=== PATIENT | male | born 1990 | race Hispanic/Latino ===

== ENCOUNTER 2018-06-25 07:42 | Emergency (ER) | payer OTHER ==
--- NOTE | 2018-06-25 08:03 | EKG ---
Test Date: 2018-06-25 Test Time: 07:49:10 Rn Patient Services: [place] MEASUREMENT RESULTS: Intervals: Rate: 96 RI: 186 QRSD: 108 QT: 378 QTc: 477 [place]: P: 49 RI: 186 QRS: 73 T: 18 INTERPRETIVE STATEMENTS: Normal sinus rhythm Septal infarct, age undetermined Abnormal ECG No previous ECG available for comparison Electronically Signed On 06-25-18 08:03:01 LEVERMAN by Andrew Wood
--- NOTE | 2018-06-25 08:08 | RAD REPORT ---
EXAM DESCRIPTION: CT - Head Brain Wo Cont - 06/25/2018 8:00 am CLINICAL HISTORY: Transient alteration of awareness COMPARISON: None. TECHNIQUE: Axial 5 mm thick images of the head were obtained without IV contrast. All CT scans are performed using dose optimization technique as appropriate and may include automated exposure control or mA/KV adjustment according to patient size. FINDINGS: No intracranial hemorrhage, mass, edema or shift of mid-line structures. No acute infarcti on changes seen. No abnormal extra-axial fluid collections. Ventricles are normal. Mastoid air cells and visualized portions of the paranasal sinuses are clear. No acute bony findings. IMPRESSION: Negative non-contrast CT head examination.
[2018-06-25 08:10] LABS: Absolute Lymphocytes (CBC) 2.5 K/uL (0.7-4.9); Absolute Monocytes 0.7 K/uL (0.1-1.3); Basophils % 0.5 % (0-1.3); Eosinophils % 1.5 % (0-4.4); Hematocrit 50.3 % (39.6-49.0); Lymphocytes % 39.6 % (15.3-44.8); MCH 33.2 pg (27.0-35.0); MCV 99.3 fL (80-100); MPV 7.8 fL (7.6-11.3); Monocytes % 11.2 % (3.3-12.3); RBC Red Blood Cell Count 5.06 M/uL (4.33-5.43)
[2018-06-25 08:14] LABS: Protime INR 0.96
[2018-06-25 09:08] LABS: ALT/SGPT 62 U/L (12-78); AST/SGOT 38 U/L (15-37); Albumin 4.2 g/dL (3.4-5.0); Alkaline Phosphatase 63 U/L (45-117); BUN Blood Urea Nitrogen 11 mg/dL (7-18); Bicarbonate 21 mmol/L (21-32); Bilirubin Direct 0.1 mg/dL (0-0.2); Bilirubin Total 0.2 mg/dL (0.2-1.0); Glucose Level 184 mg/dL (74-106); Protein, Total 7.6 g/dL (6.4-8.2); Sodium Level 145 mmol/L (136-145)
--- NOTE | 2018-06-25 14:15 | ER ---
Nurse's Notes [facility] Name: Dudley Castellano Age: 28 yrs Sex: Male : 1990 Arrival Date: 06/25/2018 Time: 07:46 Bed 4 Private MD: Diagnosis: Dehydration;Alcohol abuse with intoxication Presentation: 06/25 07:50 Presenting complaint: EMS states: At gas station, went inside to get coffee, then came ss out to vehicle and fell asleep. Pt denies any drug or ETOH ingestion. Pt is A\T\O x1, arouses to loud verbal stimuli. Transition of care: patient was not received from another setting of care. Onset of symptoms was June 25, 2018. Risk Assessment: Do you want to hurt yourself or someone else? Patient reports no desire to harm self or others. Initial Sepsis Screen: Does the patient meet any 2 criteria? No. Patient's initial sepsis screen is negative. Does the patient have a suspected source of infection? No. Patient's initial sepsis screen is negative. Care prior to arrival: IV initiated. 18 GA, in the right antecubital area, Oxygen administered. via nasal cannula. 07:50 Method Of Arrival: EMS: [facility] ss 07:50 Acuity: DELMER 2 ss Historical: - Allergies: 07:52 Unable to obtain; ss - Home Meds: 07:52 Unable to obtain [Active]; ss - PMHx: 07:52 Unable to obtain; ss - PSHx: 07:52 Unable to obtain; ss - Immunization history:: Adult Immunizations unknown. - Social history:: Smoking status: unknown. - Ebola Screening: : Unable to complete screening because. - Family history:: not pertinent. - Hospitalizations: : No recent hospitalization is reported. Screenin:00 Abuse screen: Denies threats or abuse. Denies injuries from another. Nutritional hb screening: No deficits noted. Tuberculosis screening: No symptoms or risk factors identified. Fall Risk Total Bianchi Fall Scale indicates High Risk Score (45 or more points). Fall prevention measures have been instituted. Side Rails Up X 2 Frequent Obs/Assessments Occuring As available patient and family educated on Fall Prevention Program and Strategies. Assessment: 07:50 General: Appears in no apparent distress. Behavior is calm, Smells of alcohol. Pain: hb Denies pain. Neuro: Level of Consciousness is confused, lethargic, Oriented to person. Cardiovascular: Heart tones S1 S2 present Capillary refill < 3 seconds Patient's skin is warm and dry. Respiratory: Airway is patent Trachea midline Respiratory effort is even, unlabored, Respiratory pattern is regular, symmetrical, Breath sounds are clear bilaterally. GI: No signs and/or symptoms were reported involving the gastrointestinal system. : No signs and/or symptoms were reported regarding the genitourinary system. EENT: No signs and/or symptoms were reported regarding the EENT system. Derm: No signs and/or symptoms reported regarding the dermatologic system. Skin is intact, is healthy with good turgor, Skin is pink, warm \T\ dry. Musculoskeletal: No signs and/or symptoms reported regarding the musculoskeletal system. 08:30 Reassessment: Patient appears in no apparent distress at this time. No changes from hb previously documented assessment. Patient and/or family updated on plan of care and expected duration. Pain level reassessed. 09:29 Reassessment: Patient appears in no apparent distress at this time. No changes from hb previously documented assessment. Patient and/or family updated on plan of care and expected duration. Pain level reassessed. 10:31 Reassessment: Patient appears in no apparent distress at this time. No changes from hb previously documented assessment. VSS. 11:14 Reassessment: Patient appears in no apparent distress at this time. pt father at bedside requesting to know where the pt was picked up from so he could locate the pts vehicle and belongings, pt father updated on POC. 12:58 Reassessment: Patient appears in no apparent distress at this time. Patient and/or hb family updated on plan of care and expected duration. Pain level reassessed. Vital Signs: 07:50 BP 121 / 68; Pulse 90; Resp 14; Temp 97.7; Pulse Ox 97% on R/A; Weight 102.06 kg; Height 5 ft. 10 in. (177.80 cm); Pain 0/10; 08:30 BP 115 / 66; Pulse 89; Resp 15; Pulse Ox 100% on R/A; hb 09:29 BP 115 / 66; Pulse 86; Resp 15; Pulse Ox 100% on R/A; hb 11:00 BP 124 / 68; Pulse 84; Resp 15; Pulse Ox 100% on R/A; hb 07:50 Body Mass Index 32.28 (102.06 kg, 177.80 cm) ED Course: 07:46 Patient arrived in ED. rn 07:46 Jose Calhoun MD is Attending Physician. rn 07:49 EKG done, by qa tech. reviewed by Jose Calhoun MD. at1 07:50 Maintain EMS IV. Dressing intact. Good blood return noted. Site clean \T\ dry. Gauge \T\ ss site: 18 GAUGE IN R AC. 07:50 Arm band placed on. sg 07:52 Triage completed. ss 07:56 Rickie Gee, RN is Primary Nurse. sg 07:[address] via stretcher. jj2 08:00 CT Head Brain wo Cont In Process Unspecified. EDMS 08:00 Patient has correct armband on for positive identification. Placed in gown. Bed in low hb position. Call light in reach. Side rails up X2. 08:03 Patient moved back from CT. sg 08:04 Mabel Phillips, RN is Primary Nurse. sg 08:04 CT completed. Patient tolerated procedure well. Patient moved back from CT. jj2 14:30 No provider procedures requiring assistance completed. IV discontinued, intact, hb bleeding controlled, No redness/swelling at site. Pressure dressing applied. Administered Medications: 07:55 Drug: NS 0.9% 1000 ml Route: IV; Rate: 1000 ml; Site: right forearm; Point of Care Testing: Blood Glucose: 07:50 Blood Glucose: 170 mg/dL; Ranges: Outcome: 14:15 Discharge ordered by . rn 14:30 Patient left the ED. ss 14:30 Discharged to home ambulatory. hb 14:30 Condition: stable 14:30 Discharge instructions given to patient, Instructed on discharge instructions, follow up and referral plans. medication usage, Demonstrated understanding of instructions, follow-up care, medications. Signatures: Dispatcher [employer] EDMS Rickie Gee, KINDRA ARGUELLES Mario Shane j Jose Calhoun MD MD rn Smirch, Shelby, RN RN Wanda Snyder, stem roller operator EKG Tat1 Mabel Phillips RN RN hb Corrections: (The following items were deleted from the chart) 12:58 12:00 Reassessment: Patient appears in no apparent distress at this time. Patient hb and/or family updated on plan of care and expected duration. Pain level reassessed. VSS. hb
--- NOTE | 2018-06-25 14:15 | EDPHYS ---
Physician Documentation [facility] Name: Dudley Castellano Age: 28 yrs Sex: Male : 1990 Arrival Date: 06/25/2018 Time: 07:46 Bed 4 Private MD: ED Physician Jose Calhoun HPI: 06/25 07:53 This 28 yrs old Male presents to ER via EMS with complaints of Altered Mental rn Status. 07:53 The patient presents with confusion, decreased responsiveness. Onset: The rn symptoms/episode began/occurred at an unknown time. Possible causes: unknown. Current symptoms: In the emergency department the patient's symptoms are unchanged from the initial presentation. It is unknown whether or not the patient has had similar symptoms in the past. Per EMS, at gas station, decreased responsiveness, doesn't admit to taking drugs or ETOH, patient states feels "ok", and his name is "dr. Roche". Denies pain, denies medical problems. NO meds given by EMS. Unknown onset or precipitant. . Historical: - Allergies: 07:52 Unable to obtain; ss - Home Meds: 07:52 Unable to obtain [Active]; ss - PMHx: 07:52 Unable to obtain; ss - PSHx: 07:52 Unable to obtain; ss - Immunization history:: Adult Immunizations unknown. - Social history:: Smoking status: unknown. - Ebola Screening: : Unable to complete screening because. - Family history:: not pertinent. - Hospitalizations: : No recent hospitalization is reported. ROS: 07:53 Constitutional: Negative for fever, chills, and weight loss, Eyes: Negative for injury, rn pain, redness, and discharge, Neck: Negative for injury, pain, and swelling, Cardiovascular: Negative for chest pain, palpitations, and edema, Respiratory: Negative for shortness of breath, cough, wheezing, and pleuritic chest pain, Abdomen/GI: Negative for abdominal pain, nausea, vomiting, diarrhea, and constipation, MS/Extremity: Negative for injury and deformity, Skin: Negative for injury, rash, and discoloration, Neuro: Negative for headache, weakness, numbness, tingling, and seizure. Exam: 07:53 Constitutional: This is a well developed, well nourished patient who is awake, but rn appears confused, follows commands, giggling and attempting to grab nurses Head/Face: Normocephalic, atraumatic. Eyes: Pupils equal round and reactive to light, extra-ocular motions intact. No nystagmus. ENT: dry MM with cracked lips, no stridor Cardiovascular: Regular rate and rhythm with a normal S1 and S2. No gallops, murmurs, or rubs. Normal PMI, no JVD. No pulse deficits. Respiratory: Lungs have equal breath sounds bilaterally, clear to auscultation. No increased work of breathing, no retractions or nasal flaring. Abdomen/GI: soft, non-tender Skin: Warm, dry MS/ Extremity: Pulses equal, no cyanosis. Neurovascular intact. Full, normal range of motion. Equal circumference. Neuro: Awake, confused, oriented to place and person, not time, moves all 4 extremities but slow. Right side of face with droop, localizes pain. Vital Signs: 07:50 BP 121 / 68; Pulse 90; Resp 14; Temp 97.7; Pulse Ox 97% on R/A; Weight 102.06 kg; sg Height 5 ft. 10 in. (177.80 cm); Pain 0/10; 08:30 BP 115 / 66; Pulse 89; Resp 15; Pulse Ox 100% on R/A; hb 09:29 BP 115 / 66; Pulse 86; Resp 15; Pulse Ox 100% on R/A; hb 11:00 BP 124 / 68; Pulse 84; Resp 15; Pulse Ox 100% on R/A; hb 07:50 Body Mass Index 32.28 (102.06 kg, 177.80 cm) sg MDM: 07:46 Patient medically screened. rn 14:03 Differential Diagnosis: electrolyte abnormality, alcohol intoxication, overdose, volume rn depletion. Data reviewed: vital signs, nurses notes, lab test result(s), EKG, radiologic studies, and as a result, I will. Counseling: I had a detailed discussion with the patient and/or guardian regarding: the historical points, exam findings, and any diagnostic results supporting the discharge/admit diagnosis, lab results, radiology results. 14:14 ED course: Pt now awake, ambulating to bathroom, feels much better, normal vitals, rn passes field sobriety test, but told him can't leave without a ride, he didn't drive here, so is either calling a friend or [employer]. . 06/25 07:47 Order name: Acetaminophen rn 06/25 07:47 Order name: Basic Metabolic Panel rn 06/25 07:47 Order name: CBC with Diff rn 06/25 07:47 Order name: ETOH Level; Complete Time: 08:51 rn 06/25 07:47 Order name: Hepatic Function; Complete Time: 09:26 rn 06/25 07:47 Order name: PT-INR; Complete Time: 08:34 rn 06/25 07:47 Order name: Ptt, Activated; Complete Time: 08:34 rn 06/25 07:47 Order name: Salicylate; Complete Time: 10:34 rn 06/25 07:47 Order name: CT Head Brain wo Cont; Complete Time: 08:09 rn 06/25 07:47 Order name: Acetaminophen Level; Complete Time: 09:26 EDMS 06/25 07:47 Order name: Basic Metabolic Panel; Complete Time: 09:26 EDMS 06/25 07:47 Order name: CBC with Automated Diff; Complete Time: 08:34 EDMS 06/25 07:53 Order name: Glucose, Ancillary Testing; Complete Time: 08:09 EDMS 06/25 07:47 Order name: EKG; Complete Time: 07:47 rn 06/25 07:47 Order name: EKG - Nurse/Tech; Complete Time: 07:54 rn 06/25 07:47 Order name: IV Saline Lock; Complete Time: 07:54 rn 05 07:47 Order name: Labs collected and sent; Complete Time: 07:54 rn 06/25 07:47 Order name: Glucose Level; Complete Time: 07:57 rn Administered Medications: 07:55 Drug: NS 0.9% 1000 ml Route: IV; Rate: 1000 ml; Site: right forearm; Point of Care Testing: Blood Glucose: 07:50 Blood Glucose: 170 mg/dL; ss Ranges: Critical Glucose Levels:Adult <50 mg/dl or >400 mg/dl <40 mg/dl or >180 mg/dl Disposition: 06/25/18 14:15 Discharged to Home. Impression: Dehydration, Alcohol abuse with intoxication. - Condition is Stable. - Discharge Instructions: Alcohol Intoxication, Dehydration, Adult. - Medication Reconciliation Form, Thank You Letter, Antibiotic Education, Prescription Opioid Use form. - Follow up: Private Physician; When: As needed; Reason: Recheck today's complaints, Re-evaluation by your physician. - Problem is new. - Symptoms have improved. Signatures: Dispatcher [employer] EDRickie Nolasco RN Jose Madden MD MD rn Smirch, Shelby, RN RN ss Corrections: (The following items were deleted from the chart) 14:30 14:15 06/25/2018 14:15 Discharged to Home. Impression: Dehydration; Alcohol abuse with ss intoxication. Condition is Stable. Forms are Medication Reconciliation Form, Thank You Letter, Antibiotic Education, Prescription Opioid Use. Follow up: Private Physician; When: As needed; Reason: Recheck today's complaints, Re-evaluation by your physician. Problem is new. Symptoms have improved. rn
== END 2018-06-25 14:30 | disposition home or self-care (01) ==
LOC: ER 07:42
DX: E86.0 Dehydration (principal); F10.129 Alcohol abuse with intoxication, unspecified; R94.31 Abnormal electrocardiogram [ECG] [EKG]
CPT/HCPCS: 36415; 70450; 80048; 80076; 80320; 80329; 82962; 85025; 85610; 85730; 93005; 99284

== ENCOUNTER 2018-10-01 10:26 | Inpatient (IN) | payer OTHER ==
[2018-10-01 11:52] LABS: Absolute Lymphocytes (CBC) 0.9 K/uL (0.7-4.9); Absolute Monocytes 0.5 K/uL (0.1-1.3); Absolute Neutrophil 1.7 K/uL (1.8-8.0); Basophils % 0.7 % (0-1.3); Eosinophils % 0.6 % (0-4.4); Hematocrit 48.5 % (39.6-49.0); Lymphocytes % 28.2 % (15.3-44.8); MPV 7.9 fL (7.6-11.3); Monocytes % 16.2 % (3.3-12.3); RBC Red Blood Cell Count 5.08 M/uL (4.33-5.43)
[2018-10-01] MEDS ORDERED: FAMOTIDINE 20 MG/2 ML VIAL IV ONE (11:53)
[2018-10-01] MEDS ORDERED: NA CHLORIDE 0.9% 1,000 ML ONE ×2 (11:54→14:23)
[2018-10-01 12:15] LABS: Albumin 4.4 g/dL (3.4-5.0); Bilirubin Direct 0.2 mg/dL (0-0.2); Bilirubin Total 0.6 mg/dL (0.2-1.0); Potassium 4.2 mmol/L (3.5-5.1); Protein, Total 8.2 g/dL (6.4-8.2)
[2018-10-01 12:38] LABS: Arterial Blood Carboxyhemoglob 0.8 % (0-1.5); Blood Gas Oxyhemoglobin 95.7 % (94-97); Blood O2 Saturation 97.9 % (92-98.5)
[2018-10-01] MEDS ORDERED: NA CHLORIDE 0.9% 2,000 ML ONE (12:44)
[2018-10-01] MEDS ORDERED: PIPER/TAZO/NS 3.375gm 3.375 GM/100 ML BAG ONE (12:44)
--- NOTE | 2018-10-01 12:45 | RAD REPORT ---
EXAM DESCRIPTION: RAD - Chest Single View - 10/01/2018 12:38 pm CLINICAL HISTORY: Abdominal pain, abdominal distention COMPARISON: None. TECHNIQUE: AP portable chest image was obtained 1235 hours . FINDINGS: Lungs are clear. Heart and vasculature are normal. No measurable pleural effusion and no p neumothorax. No acute bony abnormality seen. No acute aortic findings suspected. IMPRESSION: No acute cardiopulmonary process.
[2018-10-01 12:54] LABS: Blood Morphology Comment NOT SEEN (NOT SEEN); Platelet Estimate ADEQ; Urine White Blood Cell Casts OK
[2018-10-01 13:06] LABS: Protime INR 0.93
[2018-10-01 13:21] LABS: Magnesium 2.4 mg/dL (1.8-2.4); NT PRO-BNP 114 pg/mL (<125); Troponin (Emerg Dept Use Only) < 0.02 ng/mL (0.0-0.045)
--- NOTE | 2018-10-01 14:19 | ER ---
Nurse's Notes [facility] Name: Dudley aCstellano Age: 28 yrs Sex: Male : 1990 Arrival Date: 10/01/2018 Time: 10:27 Bed 7 Private MD: Unknown, Unknown Diagnosis: Vomiting;Diarrhea, unspecified;Diabetes mellitus due to underlying condition with ketoacidosis without coma;Abdominal tenderness Presentation: 10/01 11:05 Presenting complaint: Patient states: started with constipation on Saturday. Took epsom dm5 salt which usually helps. Saturday started diarrhea, stomach cramps, fatigue. hasn't been able to keep much down in about [address] Link, [facility], sees Dr. barbra cardona for diabetes. PCP told him it might be his gallbladder or appendix. Transition of care: patient was not received from another setting of care. Onset of symptoms Onset of symptoms was September 26, 2018. Risk Assessment: Do you want to hurt yourself or someone else? Patient reports no desire to harm self or others. Initial Sepsis Screen: Does the patient meet any 2 criteria? No. Patient's initial sepsis screen is negative. Does the patient have a suspected source of infection? No. Patient's initial sepsis screen is negative. Care prior to arrival: None. 11:05 Method Of Arrival: Ambulatory dm5 11:05 Acuity: DELMER 3 dm5 Triage Assessment: 11:08 General: Appears in no apparent distress. uncomfortable, Behavior is calm, cooperative. dm5 Pain: Complains of pain in right lower quadrant Pain currently is 6 out of 10 on a pain scale. GI: Reports intolerance of food, nausea, vomiting. Historical: - Allergies: 11:08 No Known Allergies; dm5 - Home Meds: 11:08 inokana [Active]; dm5 - PMHx: 11:08 Diabetes - NIDDM; Hypertension; dm5 - Immunization history:: Adult Immunizations up to date. - Social history:: Smoking status: Patient/guardian denies using tobacco. - Family history:: not pertinent. - Ebola Screening: : No symptoms or risks identified at this time. Screenin:28 Abuse screen: Denies threats or abuse. Nutritional screening: No deficits noted. sv Tuberculosis screening: No symptoms or risk factors identified. Fall Risk None identified. Assessment: 11:15 General: Appears in no apparent distress. uncomfortable, slender, well groomed, well sv developed, Behavior is calm, cooperative, appropriate for age. Pain: Complains of pain in epigastric area and right upper quadrant and right lower quadrant Pain currently is 5 out of 10 on a pain scale. Quality of pain is described as sharp, Pain began 4 days ago Is continuous. Neuro: Level of Consciousness is awake, alert, obeys commands, Oriented to person, place, time, situation, Moves all extremities. Full function Gait is steady. Respiratory: Respiratory effort is even, unlabored, Respiratory pattern is regular, symmetrical. GI: Abdomen is flat, Abd is soft X 4 quads Abdomen is tender to palpation in epigastric area, right upper quadrant and right lower quadrant Reports constipation, diarrhea, nausea, tolerance of fluids, tolerance of food. GI: Reports cramping. Derm: Skin is pink, warm \T\ dry. Musculoskeletal: Range of motion: intact in all extremities. 11:48 Reassessment: Patient appears in no apparent distress at this time. No changes from sv previously documented assessment. Patient and/or family updated on plan of care and expected duration. Pain level reassessed. Patient is alert, oriented x 3, equal unlabored respirations, skin warm/dry/pink. 12:51 Reassessment: Patient appears in no apparent distress at this time. No changes from sv previously documented assessment. Patient and/or family updated on plan of care and expected duration. Pain level reassessed. Patient is alert, oriented x 3, equal unlabored respirations, skin warm/dry/pink. 14:21 Reassessment: Patient appears in no apparent distress at this time. No changes from sv previously documented assessment. Patient and/or family updated on plan of care and expected duration. Pain level reassessed. Patient is alert, oriented x 3, equal unlabored respirations, skin warm/dry/pink. 15:10 Reassessment: Patient appears in no apparent distress at this time. No changes from sv previously documented assessment. Patient and/or family updated on plan of care and expected duration. Pain level reassessed. Patient is alert, oriented x 3, equal unlabored respirations, skin warm/dry/pink. Pt given mouth swabs, pt was requesting ice chips but we are unable to give him any at this time. 15:33 Reassessment: Patient appears in no apparent distress at this time. No changes from sv previously documented assessment. Patient and/or family updated on plan of care and expected duration. Pain level reassessed. Patient is alert, oriented x 3, equal unlabored respirations, skin warm/dry/pink. Updated on POC. 16:21 Reassessment: Patient appears in no apparent distress at this time. No changes from sv previously documented assessment. Patient and/or family updated on plan of care and expected duration. Pain level reassessed. Patient is alert, oriented x 3, equal unlabored respirations, skin warm/dry/pink. 16:35 Reassessment: Dr Poole at bedside speaking with pt. sv 16:55 Reassessment: Patient appears in no apparent distress at this time. Patient and/or sv family updated on plan of care and expected duration. Pain level reassessed. Patient is alert, oriented x 3, equal unlabored respirations, skin warm/dry/pink. 17:26 Reassessment: Patient appears in no apparent distress at this time. Patient and/or sv family updated on plan of care and expected duration. Pain level reassessed. Patient is alert, oriented x 3, equal unlabored respirations, skin warm/dry/pink. 18:11 Reassessment: Patient appears in no apparent distress at this time. No changes from sv previously documented assessment. Patient and/or family updated on plan of care and expected duration. Pain level reassessed. Patient is alert, oriented x 3, equal unlabored respirations, skin warm/dry/pink. 18:26 Reassessment: Patient appears in no apparent distress at this time. Patient and/or sv family updated on plan of care and expected duration. Pain level reassessed. Patient is alert, oriented x 3, equal unlabored respirations, skin warm/dry/pink. Pt given lemon glycerin mouth swabs. 19:48 Reassessment: Patient appears in no apparent distress at this time. No changes from jd3 previously documented assessment. Patient and/or family updated on plan of care and expected duration. Pain level reassessed. Patient is alert, oriented x 3, equal unlabored respirations, skin warm/dry/pink. 20:20 Reassessment: Patient appears in no apparent distress at this time. Patient and/or jd3 family updated on plan of care and expected duration. Pain level reassessed. Patient is alert, oriented x 3, equal unlabored respirations, skin warm/dry/pink. charting continued in [facility]. Vital Signs: 11:08 BP 145 / 105; Pulse 99; Resp 20; Temp 97.8; Pulse Ox 100% on R/A; Weight 83.01 kg; dm5 Height 5 ft. 10 in. (177.80 cm); 13:01 BP 130 / 96; Pulse 71; Resp 18; Pulse Ox 100% ; jb1 13:10 BP 130 / 96; Pulse 69 MON; Resp 18; Pulse Ox 100% on R/A; sv 13:57 BP 140 / 99; Pulse 77; Resp 17; Pulse Ox 100% ; sv 14:55 BP 125 / 85; Pulse 77; Resp 20; Pulse Ox 100% ; sv 15:33 BP 133 / 86; Pulse 74; Resp 18; Pulse Ox 100% ; sv 16:21 BP 121 / 71; Pulse 74; Resp 19; Pulse Ox 100% ; sv 17:27 Pulse 73; Resp 19; Pulse Ox 100% ; sv 18:26 BP 126 / 85; Pulse 83 MON; Resp 20; Pulse Ox 100% on R/A; sv 19:48 BP 130 / 89; Pulse 76; Resp 19 S; Pulse Ox 100% on R/A; jd3 11:08 Body Mass Index 26.26 (83.01 kg, 177.80 cm) dm5 13:10 Sinus Rhythm sv 18:26 Sinus Rhythm sv ED Course: 10:27 Patient arrived in ED. ag5 10:29 Unknown, Unknown is Private Physician. ag5 11:07 Triage completed. dm5 11:08 Arm band placed on right wrist. dm5 11:15 Pulse ox on. NIBP on. sv 11:28 Nery Nguyen, RN is Primary Nurse. sv 11:28 Trevin Camarillo MD is Attending Physician. karlene 11:28 Patient has correct armband on for positive identification. Bed in low position. Call sv light in reach. Door closed. Head of bed elevated. 11:35 Initial lab(s) drawn, by me, sent to lab. Inserted saline lock: 18 gauge in right sv antecubital area, using aseptic technique. Blood collected. Flushed right antecubital with 5 ml normal saline. 12:19 US Abdomen Limited In Process Unspecified. EDMS 12:35 X-ray completed. Portable x-ray completed in exam room. Patient tolerated procedure jb2 well. 12:36 XRAY Chest (1 view) In Process Unspecified. EDMS 12:49 EKG done, by diagnostic radiologic technologist. reviewed by Trevin Camarillo MD. sm3 13:10 pvc monitor on. sv 14:02 Add On-Lab Sent. sv 14:10 Repeat lab(s) drawn. by me, sent to lab. sv 14:13 Gail Albarran MD is Hospitalizing Provider. karlene 14:22 Awaiting lab results, Awaiting CT Scan. sv 14:[address] via wheelchair. sv 14:29 CT completed. Patient tolerated procedure well. Patient moved back from CT. sj 14:35 CT Abd/Pelvis - W/Contrast In Process Unspecified. EDMS 15:34 Repeat lab(s) drawn. by me, sent to lab. sv 16:50 Missed attempt(s): 20 gauge in right wrist. Bleeding controlled, band aid applied, sv catheter tip intact. 16:55 Inserted saline lock: 20 gauge in left antecubital area, using aseptic technique. sv Flushed left antecubital with 5 ml normal saline. 17:27 Awaiting bed assignment. sv 18:27 Awaiting bed assignment. sv 18:29 EKG done, by ED staff. jb1 18:29 Repeat lab(s) drawn. by me, sent to lab. jb1 19:08 Report given to Radha ARGUELLES and Apollo ARGUELLES. sv 19:09 Primary Nurse role handed off by Nery Nguyen RN sv 19:47 Shahid Alas, KINDRA is Primary Nurse. jd3 20:21 No provider procedures requiring assistance completed. Patient admitted, IV remains in jd3 place. Administered Medications: Discontinued: NS 0.9% 1000 ml IV at 125 ml/hr continuous 11:48 Drug: NS 0.9% 1000 ml Route: IV; Rate: 1 bolus; Site: right antecubital; sv 12:40 Follow up: Response: No adverse reaction; IV Status: Completed infusion; IV Intake: sv 1000ml 11:48 Drug: Pepcid 20 mg Route: IVP; Site: right antecubital; sv 12:28 Follow up: Response: No adverse reaction sv 12:51 Drug: NS 0.9% 1000 ml Route: IV; Rate: 1 bolus; Site: right antecubital; sv 14:00 Follow up: Response: No adverse reaction; IV Status: Completed infusion; IV Intake: sv 1000ml 12:51 Drug: NS 0.9% 1000 ml Route: IV; Rate: 125 ml/hr; Site: right antecubital; sv 12:51 Drug: Zosyn 3.375 grams Route: IVPB; Infused Over: 60 mins; Site: right antecubital; sv 13:30 Follow up: Response: No adverse reaction; IV Status: Completed infusion; IV Intake: sv 100ml 14:20 Drug: NS 0.9% 1000 ml Route: IV; Rate: 1 bolus; Site: right antecubital; sv 15:20 Follow up: Response: No adverse reaction; IV Status: Completed infusion; IV Intake: sv 1000ml 16:59 Drug: D5-1/2 NS with KCl 20 mEq/L 1000 ml Route: IV; Rate: 125 ml/hr; Site: left sv antecubital; 20:22 Follow up: IV Status: Infusion continued upon admission jd3 17:00 Drug: Insulin Drip - (Insulin Regular Human 100 units, NS 0.9% 100 ml) {Co-Signature: sv aj1 (Shelly Askew RN).} Route: IV; Rate: 4 units/hr; Site: right antecubital; 20:23 Follow up: Response: No adverse reaction; IV Status: Infusion continued upon admission jd3 Point of Care Testing: Blood Glucose: 11:41 Blood Glucose: 247 mg/dL; sv 12:52 Blood Glucose: 226 mg/dL; sv 14:10 Blood Glucose: 207 mg/dL; sv 15:17 Blood Glucose: 183 mg/dL; jb1 16:24 Blood Glucose: 181 mg/dL; sv 17:26 Blood Glucose: 181 mg/dL; sv 18:11 Blood Glucose: 182 mg/dL; sv 19:48 Blood Glucose: 141 mg/dL; jd3 21:26 Blood Glucose: 151 mg/dL; oe 22:17 Blood Glucose: 150 mg/dL; oe 10/02 01:49 Blood Glucose: 210 mg/dL; oe 02:17 Blood Glucose: 255 mg/dL; oe Ranges: Intake: 10/01 12:40 IV: 1000ml; Total: 1000ml. sv 12:50 PO: 500ml (Contrast); Total: 1500ml. sv 13:30 IV: 100ml; Total: 1600ml. sv 14:00 IV: 1000ml; Total: 2600ml. sv 15:20 IV: 1000ml; Total: 3600ml. sv 12:50 Called and informed Rochelle in CT pt finished sv Output: 13:58 Urine: 1000ml (Voided); Total: 1000ml. sv 17:26 Urine: 1000ml (Voided); Total: 2000ml. sv 12:50 Called and informed Rochelle in CT pt finished sv Outcome: 14:18 Decision to Hospitalize by Provider. karlene 20:21 Admitted to ER Hold. Please see [facility] for further documentation. jd3 20:21 Condition: stable 20:21 Instructed on the need for admit, Demonstrated understanding of instructions. 10/02 04:10 Admitted to Med/surg accompanied by tech, via wheelchair, room 428, with chart, Report jd3 called to Lit ARGUELLES Condition: stable Instructed on the need for admit, Demonstrated understanding of instructions. 04:11 Patient left the ED. [email or web address] Signatures: Dispatcher [employer] EDMS Kirk Nicole1 Jenn García, RN RN dm5 Nery Nguyen, RN RN Trevin Suresh MD MD cha Buechter, Jesse jb2 Rochelle Donahue Orlando oe Davies, Jonathon RN RN jd3 Yary Edmonds3 Saw Villalta5 Shelly Askew RN aj1 Corrections: (The following items were deleted from the chart) 10/01 13:10 13:10 BP 130 / 96; Pulse 69bpm; Resp 18bpm; Pulse Ox 100% RA; sv sv
--- NOTE | 2018-10-01 14:19 | EDPHYS ---
Physician Documentation [facility] Name: Dudley Castellano Age: 28 yrs Sex: Male : 1990 Arrival Date: 10/01/2018 Time: 10:27 Bed 7 Private MD: Unknown, Unknown ED Physician Trevin Camarillo HPI: 10/01 11:38 This 28 yrs old Male presents to ER via Ambulatory with complaints of karlene Vomiting/Diarrhea, STOMACH PAINS, FATIGUE. 11:38 The patient presents to the emergency department with nausea, vomiting, abdominal pain, karlene of the right upper quadrant. Onset: The symptoms/episode began/occurred 2 day(s) ago. Possible causes: unknown. The symptoms are aggravated by food , The symptoms are alleviated by nothing. Associated signs and symptoms: The patient has no apparent associated signs or symptoms. Severity of symptoms: At their worst the symptoms were mild moderate in the emergency department the symptoms are unchanged. The patient has not experienced similar symptoms in the past. Historical: - Allergies: 11:08 No Known Allergies; dm5 - Home Meds: 11:08 inokana [Active]; dm5 - PMHx: 11:08 Diabetes - NIDDM; Hypertension; dm5 - Immunization history:: Adult Immunizations up to date. - Social history:: Smoking status: Patient/guardian denies using tobacco. - Family history:: not pertinent. - Ebola Screening: : No symptoms or risks identified at this time. ROS: 11:38 Constitutional: Negative for fever, chills, and weight loss, Eyes: Negative for injury, karlene pain, redness, and discharge, ENT: Negative for injury, pain, and discharge, Neck: Negative for injury, pain, and swelling, Cardiovascular: Negative for chest pain, palpitations, and edema, Respiratory: Negative for shortness of breath, cough, wheezing, and pleuritic chest pain, Back: Negative for injury and pain, : Negative for injury, bleeding, discharge, and swelling, MS/Extremity: Negative for injury and deformity, Skin: Negative for injury, rash, and discoloration, Neuro: Negative for headache, weakness, numbness, tingling, and seizure, Psych: Negative for depression, anxiety, suicide ideation, homicidal ideation, and hallucinations, Allergy/Immunology: Negative for hives, rash, and allergies, Endocrine: Negative for neck swelling, polydipsia, polyuria, polyphagia, and marked weight changes, Hematologic/Lymphatic: Negative for swollen nodes, abnormal bleeding, and unusual bruising. 11:38 Abdomen/GI: Positive for abdominal pain, of the right upper quadrant. Exam: 11:38 Constitutional: This is a well developed, well nourished patient who is awake, alert, karlene and in no acute distress. Head/Face: Normocephalic, atraumatic. Eyes: Pupils equal round and reactive to light, extra-ocular motions intact. Lids and lashes normal. Conjunctiva and sclera are non-icteric and not injected. Cornea within normal limits. Periorbital areas with no swelling, redness, or edema. ENT: Nares patent. No nasal discharge, no septal abnormalities noted. Tympanic membranes are normal and external auditory canals are clear. Oropharynx with no redness, swelling, or masses, exudates, or evidence of obstruction, uvula midline. Mucous membranes moist. Neck: Trachea midline, no thyromegaly or masses palpated, and no cervical lymphadenopathy. Supple, full range of motion without nuchal rigidity, or vertebral point tenderness. No Meningismus. Chest/axilla: Normal chest wall appearance and motion. Nontender with no deformity. No lesions are appreciated. Cardiovascular: Regular rate and rhythm with a normal S1 and S2. No gallops, murmurs, or rubs. Normal PMI, no JVD. No pulse deficits. Respiratory: Lungs have equal breath sounds bilaterally, clear to auscultation and percussion. No rales, rhonchi or wheezes noted. No increased work of breathing, no retractions or nasal flaring. Back: No spinal tenderness. No costovertebral tenderness. Full range of motion. Male : Normal genitalia with no discharge or lesions. Skin: Warm, dry with normal turgor. Normal color with no rashes, no lesions, and no evidence of cellulitis. MS/ Extremity: Pulses equal, no cyanosis. Neurovascular intact. Full, normal range of motion. Neuro: Awake and alert, GCS 15, oriented to person, place, time, and situation. Cranial nerves II-XII grossly intact. Motor strength 5/5 in all extremities. Sensory grossly intact. Cerebellar exam normal. Normal gait. Psych: Awake, alert, with orientation to person, place and time. Behavior, mood, and affect are within normal limits. 11:38 Abdomen/GI: Inspection: abdomen appears normal, Bowel sounds: normal, Palpation: mild abdominal tenderness, in the epigastric area and right upper quadrant. Vital Signs: 11:08 BP 145 / 105; Pulse 99; Resp 20; Temp 97.8; Pulse Ox 100% on R/A; Weight 83.01 kg; dm5 Height 5 ft. 10 in. (177.80 cm); 13:01 BP 130 / 96; Pulse 71; Resp 18; Pulse Ox 100% ; jb1 13:10 BP 130 / 96; Pulse 69 MON; Resp 18; Pulse Ox 100% on R/A; sv 13:57 BP 140 / 99; Pulse 77; Resp 17; Pulse Ox 100% ; sv 14:55 BP 125 / 85; Pulse 77; Resp 20; Pulse Ox 100% ; sv 15:33 BP 133 / 86; Pulse 74; Resp 18; Pulse Ox 100% ; sv 16:21 BP 121 / 71; Pulse 74; Resp 19; Pulse Ox 100% ; sv 17:27 Pulse 73; Resp 19; Pulse Ox 100% ; sv 18:26 BP 126 / 85; Pulse 83 MON; Resp 20; Pulse Ox 100% on R/A; sv 19:48 BP 130 / 89; Pulse 76; Resp 19 S; Pulse Ox 100% on R/A; jd3 11:08 Body Mass Index 26.26 (83.01 kg, 177.80 cm) dm5 13:10 Sinus Rhythm sv 18:26 Sinus Rhythm sv MDM: 11:28 [facility]. [facility] 11:39 Data reviewed: vital signs, nurses notes, lab test result(s), radiologic studies, karlene ultrasound. 10/01 11:29 Order name: Basic Metabolic Panel; Complete Time: 12:19 sv 10/01 11:29 Order name: CBC with Diff; Complete Time: 13:38 sv 10/01 11:29 Order name: Creatinine for Radiology; Complete Time: 12:19 sv 10/01 11:29 Order name: Hepatic Function; Complete Time: 12:19 sv 10/01 11:29 Order name: Lipase; Complete Time: 12:19 sv 10/01 11:41 Order name: Glucose, Ancillary Testing; Complete Time: 12:19 EDMS 10/01 11:54 Order name: CBC Smear Scan; Complete Time: 13:38 EDMS 10/01 12:21 Order name: Magnesium; Complete Time: 13:38 karlene 10/01 12:21 Order name: NT PRO-BNP; Complete Time: 13:38 karlene 10/01 12:21 Order name: PT-INR; Complete Time: 13:38 karlene 10/01 12:21 Order name: Troponin (emerg Dept Use Only); Complete Time: 13:38 karlene 10/01 12:21 Order name: Osmolality, Serum; Complete Time: 16:31 karlene 10/01 12:21 Order name: Urine Osmolality; Complete Time: 14:50 karlene 10/01 12:21 Order name: Urine Sodium Random; Complete Time: 14:50 karlene 10/01 12:22 Order name: ABG; Complete Time: 13:38 karlene 10/01 12:55 Order name: Glucose, Ancillary Testing; Complete Time: 13:38 EDNJ 10/01 13:01 Order name: Ketone, Serum; Complete Time: 13:38 [facility] 10/01 13:07 Order name: Add On-Lab bd 10/01 14:04 Order name: Urine Dipstick--Ancillary (enter results); Complete Time: 14:50 bd 10/01 14:11 Order name: Glucose, Ancillary Testing; Complete Time: 14:50 EDMS 10/01 14:13 Order name: Basic Metabolic Panel; Complete Time: 14:50 sv 10/01 15:21 Order name: Basic Metabolic Panel; Complete Time: 16:31 sv 10/01 20:03 Order name: Glucose, Ancillary Testing EDNJ 10/01 20:03 Order name: Glucose, Ancillary Testing EDNJ 10/01 20:03 Order name: Glucose, Ancillary Testing EDNJ 10/01 20:03 Order name: Glucose, Ancillary Testing EDNJ 10/01 20:03 Order name: Glucose, Ancillary Testing EDNJ 10/01 20:51 Order name: Basic Metabolic Panel EDNJ 10/01 22:22 Order name: Glucose, Ancillary Testing EDNJ 10/01 22:22 Order name: Glucose, Ancillary Testing EDNJ 10/01 11:29 Order name: IV Saline Lock; Complete Time: 11:41 sv 10/01 11:29 Order name: Labs collected and sent; Complete Time: 11:41 sv 10/01 11:37 Order name: US Abdomen Limited; Complete Time: 16:31 karlene 10/01 12:21 Order name: XRAY Chest (1 view); Complete Time: 12:48 [facility] 10/01 12:21 Order name: EKG; Complete Time: 12:22 [facility] 10/01 12:21 Order name: Cardiac monitoring; Complete Time: 14:02 [facility] 10/01 12:21 Order name: EKG - Nurse/Tech; Complete Time: 14:02 [facility] 10/01 12:21 Order name: O2 Per Protocol; Complete Time: 12:27 [facility] 10/01 12:21 Order name: O2 Sat Monitoring; Complete Time: 12:28 [facility] 10/01 12:21 Order name: CT Abd/Pelvis - W/Contrast; Complete Time: 14:50 [facility] 10/02 00:11 Order name: Glucose, Ancillary Testing EDMS 10/02 00:11 Order name: Glucose, Ancillary Testing EDMS 10/02 00:45 Order name: Basic Metabolic Panel EDMS 10/02 01:52 Order name: Glucose, Ancillary Testing EDMS 10/02 02:17 Order name: Glucose, Ancillary Testing EDMS Administered Medications: Discontinued: NS 0.9% 1000 ml IV at 125 ml/hr continuous 11:48 Drug: NS 0.9% 1000 ml Route: IV; Rate: 1 bolus; Site: right antecubital; sv 12:40 Follow up: Response: No adverse reaction; IV Status: Completed infusion; IV Intake: sv 1000ml 11:48 Drug: Pepcid 20 mg Route: IVP; Site: right antecubital; sv 12:28 Follow up: Response: No adverse reaction sv 12:51 Drug: NS 0.9% 1000 ml Route: IV; Rate: 1 bolus; Site: right antecubital; sv 14:00 Follow up: Response: No adverse reaction; IV Status: Completed infusion; IV Intake: sv 1000ml 12:51 Drug: NS 0.9% 1000 ml Route: IV; Rate: 125 ml/hr; Site: right antecubital; sv 12:51 Drug: Zosyn 3.375 grams Route: IVPB; Infused Over: 60 mins; Site: right antecubital; sv 13:30 Follow up: Response: No adverse reaction; IV Status: Completed infusion; IV Intake: sv 100ml 14:20 Drug: NS 0.9% 1000 ml Route: IV; Rate: 1 bolus; Site: right antecubital; sv 15:20 Follow up: Response: No adverse reaction; IV Status: Completed infusion; IV Intake: sv 1000ml 16:59 Drug: D5-1/2 NS with KCl 20 mEq/L 1000 ml Route: IV; Rate: 125 ml/hr; Site: left sv antecubital; 20:22 Follow up: IV Status: Infusion continued upon admission jd3 17:00 Drug: Insulin Drip - (Insulin Regular Human 100 units, NS 0.9% 100 ml) {Co-Signature: [email or web address] (Shelly Askew RN).} Route: IV; Rate: 4 units/hr; Site: right antecubital; 20:23 Follow up: Response: No adverse reaction; IV Status: Infusion continued upon admission jd3 Point of Care Testing: Blood Glucose: 11:41 Blood Glucose: 247 mg/dL; sv 12:52 Blood Glucose: 226 mg/dL; sv 14:10 Blood Glucose: 207 mg/dL; sv 15:17 Blood Glucose: 183 mg/dL; jb1 16:24 Blood Glucose: 181 mg/dL; sv 17:26 Blood Glucose: 181 mg/dL; sv 18:11 Blood Glucose: 182 mg/dL; sv 19:48 Blood Glucose: 141 mg/dL; jd3 21:26 Blood Glucose: 151 mg/dL; oe 22:17 Blood Glucose: 150 mg/dL; oe 03/14 01:49 Blood Glucose: 210 mg/dL; oe 02:17 Blood Glucose: 255 mg/dL; oe Ranges: Critical Glucose Levels:Adult <50 mg/dl or >400 mg/dl <40 mg/dl or >180 mg/dl Disposition: 10/01/18 14:18 Hospitalization ordered by Gail Albarran for Inpatient Admission. Preliminary diagnosis are Vomiting, Diarrhea, unspecified, Diabetes mellitus due to underlying condition with ketoacidosis without coma, Abdominal tenderness. - Bed requested for Telemetry/MedSurg (Inpatient). - Status is Inpatient Admission. jd3 - Condition is Fair. - Problem is new. - Symptoms have improved. UTI on Admission? No Signatures: Dispatcher [employer] Jenn Rushing RN Nery Mahan RN RN sv Anderson, Corey, MD MD cha Chretien, Felicia, RN RN fc Davies, Jonathon, RN RN j Shelly Askew RN [email or web address] Corrections: (The following items were deleted from the chart) 10/01 21:53 14:18 Hospitalization Ordered by Gail Albarran MD for Inpatient Admission. Preliminary diagnosis is Vomiting; Diarrhea, unspecified; Diabetes mellitus due to underlying condition with ketoacidosis without coma; Abdominal tenderness. Bed requested for Intensive Care Unit. Status is Inpatient Admission. Condition is Fair. Problem is new. Symptoms have improved. UTI on Admission? No. karlene 10/02 02:49 10/01 21:53 10/01/2018 14:18 Hospitalization Ordered by Gail Albarran MD for Inpatient fc Admission. Preliminary diagnosis is Vomiting; Diarrhea, unspecified; Diabetes mellitus due to underlying condition with ketoacidosis without coma; Abdominal tenderness. Bed requested for [facility] ER HOLD. Status is Inpatient Admission. Condition is Fair. Problem is new. Symptoms have improved. UTI on Admission? No. fc 10/02 04:11 02:49 10/01/2018 14:18 Hospitalization Ordered by Gail Albarran MD for Inpatient jd3 Admission. Preliminary diagnosis is Vomiting; Diarrhea, unspecified; Diabetes mellitus due to underlying condition with ketoacidosis without coma; Abdominal tenderness. Bed requested for Telemetry/MedSurg (Inpatient). Status is Inpatient Admission. Condition is Fair. Problem is new. Symptoms have improved. UTI on Admission? No. fc
[2018-10-01 14:37] LABS: Urine Blood TRACE (NEG); Urine Glucose 2+ (NEG); Urine Protein 1+ (NEG); Urine Specific Gravity 1.015 (1.005-1.030); Urine pH 5.5 (5.0-7.0)
--- NOTE | 2018-10-01 14:42 | RAD REPORT ---
EXAM DESCRIPTION: CTAbdomen Pelvis W Contrast - 10/01/2018 2:34 pm CLINICAL HISTORY: Abdominal pain. ABD PAIN COMPARISON: No comparisons TECHNIQUE: Biphasic CT imaging of the abdomen and pelvis was performed with 100 ml non-ionic IV cont rast. All CT scans are performed using dose optimization technique as appropriate and may include automated exposure control or mA/KV adjustment according to patient size. FINDINGS: The lung bases are clear. The liver, spleen, pancreas, adrenal glands and kidneys are within normal limits. No bowel obstruction, free air, free fluid or abscess. The appendix is normal. No evidence of signi ficant lymphadenopathy. No suspicious bony findings. IMPRESSION: No acute intra-abdominal or pelvic finding.
[2018-10-01 14:47] LABS: BUN Blood Urea Nitrogen 8 mg/dL (7-18); Glucose Level 223 mg/dL (74-106); Potassium 3.7 mmol/L (3.5-5.1); Sodium Level 130 mmol/L (136-145)
[2018-10-01 14:48] LABS: Bicarbonate 10 mmol/L (21-32)
[2018-10-01] MEDS ORDERED: INSULIN -REGULAR HUMAN 100 UNIT in NA CHLORIDE 0.9% 100 ML IV SCH (15:00)
--- NOTE | 2018-10-01 15:10 | RAD REPORT ---
EXAM DESCRIPTION: US - Abdomen Exam Limited - 10/01/2018 3:02 pm CLINICAL HISTORY: ABDOMINAL DISTENTION COMPARISON: No comparisons FINDINGS: The gallbladder demonstrates no gallstones. No pericholecystic fluid or gallbladder wall t hickening. The common bile duct is normal measuring 4 mm. The liver demonstrates no findings of intrahepatic biliary dilatation. IMPRESSION: Unremarkable examination.
[2018-10-01 15:56] LABS: BUN Blood Urea Nitrogen 7 mg/dL (7-18); Bicarbonate 9 mmol/L (21-32); Glucose Level 187 mg/dL (74-106); Potassium 3.5 mmol/L (3.5-5.1); Sodium Level 131 mmol/L (136-145)
[2018-10-01] MEDS ORDERED: D5.45NS W/KCL 20MEQ 1,000 ML IV ONE (16:49)
[2018-10-01] MEDS ORDERED: D5 0.45 NS 1,000 ML IV SCH ×2 (18:13→23:00)
[2018-10-01] MEDS ORDERED: D5 0.45 NS 1,000 ML IV ONE (20:40)
[2018-10-01 20:49] LABS: BUN Blood Urea Nitrogen 7 mg/dL (7-18); Bicarbonate 12 mmol/L (21-32); Glucose Level 149 mg/dL (74-106); Potassium 3.1 mmol/L (3.5-5.1); Sodium Level 135 mmol/L (136-145)
--- NOTE | 2018-10-01 22:49 | P.HP ---
Certification for Inpatient Patient admitted to: Inpatient Practitioner: I am a practitioner with admitting privileges, knowledge of patient current condition, hospital course, and medical plan of care. Services: Services provided to patient in accordance with Admission requirements found in Title 42 Section 412.3 of the Code of Federal Regulations Patient History Date of Service: 10/01/18 Reason for admission: Ketoacidosis History of Present Illness: This is a 50 yr old male with a hx of DM2, HLD and HTN admitted for ketoacidosis. Per patient, saturday prior to admission, he had no bowel movements for 3 days and took epsom salt, which caused him to have non bloody, watery diarrhea. He then also started having nausea/vomiting which was progressively worsening. He saw his PCP, Dr. Link who though it may be his gallbladder and told him to come to the ED if his pain got progressively worse. Pain did not resolve and therefore he came to the ED. In the ED, his imaging was negative for any acute abdominal abnormalities, but he was found to have elevated blood sugars to the 300s and an anion gap of 21 with ketones in the urine. He was started on IVF and insulin and was admitted for DKA. At the time of my exam, pt was AAOx3, in no acute distress and was feeling better. Allergies No Known Allergies Allergy (Verified 10/01/18 18:10) Home Medications: Atorvastatin Calcium [Lipitor] 40 mg PO BEDTIME 10/02/18 Canagliflozin [Invokana] 100 mg PO DAILY 10/02/18 Insulin Glargine Human [Lantus*] 20 units SQ DAILY WITH BREAKFAST #1 syr Lisinopril 40 mg PO DAILY 10/02/18 Metformin ER [Glucophage ER*] 1,000 mg PO BID 10/02/18 - Past Medical/Surgical History Has patient received pneumonia vaccine in the past: No -: DM2 -: HTN -: HLD - Social History Smoking Status: Never smoker Caffeine use: Yes Review of Systems 10-point ROS is otherwise unremarkable Physical Examination - Vital Signs Blood Pressure: 133/89 Pulse: 72 Respirations: 15 Pulse Ox (%): 100 - Physical Exam General: Alert, In no apparent distress, Oriented x3 HEENT: Atraumatic, PERRLA, Mucous membr. moist/pink, EOMI, Sclerae nonicteric Neck: Supple, 2+ carotid pulse no bruit, No LAD, Without JVD or thyroid abnormality Respiratory: Clear to auscultation bilaterally, Normal air movement Cardiovascular: Regular rate/rhythm, Normal S1 S2 Gastrointestinal: Normal bowel sounds, No tenderness Musculoskeletal: No tenderness Integumentary: No rashes Neurological: Normal gait, Normal speech, Normal strength at 5/5 x4 extr, Normal tone, Normal affect Lymphatics: No axilla or inguinal lymphadenopathy - Studies Laboratory Data (last 24 hrs) 10/01/18 14:15: Sodium 130 L, Potassium 3.7, BUN 8, Creatinine 0.76, Glucose 223 H 10/01/18 12:50: PT 11.0, INR 0.93 10/01/18 12:50: Magnesium 2.4 10/01/18 11:33: Creatinine 0.98 10/01/18 11:33: WBC 3.2 L, Hgb 16.7, Hct 48.5, Plt Count 200 10/01/18 11:33: Sodium 123 L, Potassium 4.2, BUN 9, Creatinine 0.99, Glucose 275 H, Total Bilirubin 0.6, AST 35, ALT 46, Alkaline Phosphatase 81, Lipase 148 Assessment and Plan - Problems (Diagnosis) (1) DKA (diabetic ketoacidoses) Current Visit: Yes Status: Acute Qualifiers: Diabetes mellitus type: type 2 Diabetes mellitus complication detail: without coma Qualified Code(s): E11.10 - Type 2 diabetes mellitus with ketoacidosis without coma (2) Diabetes mellitus Current Visit: Yes Status: Chronic Qualifiers: Diabetes mellitus type: type 2 Diabetes mellitus fci insulin use: without fci use Diabetes mellitus complication status: with ketoacidosis Diabetes mellitus complication detail: without coma Qualified Code(s): E11.10 - Type 2 diabetes mellitus with ketoacidosis without coma (3) Hypertension Current Visit: Yes Status: Chronic Qualifiers: Hypertension type: essential hypertension Qualified Code(s): I10 - Essential (primary) hypertension (4) HLD (hyperlipidemia) Current Visit: Yes Status: Chronic Qualifiers: Hyperlipidemia type: unspecified Qualified Code(s): E78.5 - Hyperlipidemia , unspecified - Plan Admit to ICU DKA protocol - IV inuslin, D5 1/2NS at 125 w/ KCL, to close gap. GAP of 21 BMP Q4 to monitor Glucose checks Q1 hr - Advance Directives Does patient have a Living Will: No Does patient have a Durable POA for Healthcare: No
[2018-10-02 00:41] LABS: BUN Blood Urea Nitrogen 7 mg/dL (7-18); Bicarbonate 16 mmol/L (21-32); Glucose Level 171 mg/dL (74-106); Sodium Level 133 mmol/L (136-145)
[2018-10-02 00:45] LABS: Potassium 2.7 mmol/L (3.5-5.1)
[2018-10-02] MEDS ORDERED: GLUCAGON 1 MG/VIAL IM PRN (00:51)
[2018-10-02] MEDS ORDERED: D50W 25 GM/50 ML SYRINGE IV PRN (00:51)
[2018-10-02] MEDS ORDERED: POTASSIUM CL 40 MEQ in NA CHLORIDE 0.9% 500 ML IV SCH (01:00)
[2018-10-02] MEDS ORDERED: KCL 20 MEQ/100 mL IVPB 40 MEQ/200 ML BAG IV ONE (01:14)
[2018-10-02] MEDS ORDERED: INSULIN GLARGINE 100 UNITS/ML SQ ONE (01:15)
[2018-10-02] MEDS ORDERED: D5 0.45 NS 1,000 ML IV ONE (01:54)
[2018-10-02] MEDS: KCL 20 MEQ/100 mL IVPB 20 MEQ/100 ML BAG IV SCH ×6 (02:00→22:38)
[2018-10-02] MEDS ORDERED: NA CHLORIDE 0.9% 1,000 ML ONE (02:23)
[2018-10-02] MEDS ORDERED: INSULIN -REGULAR HUMAN 50 UNIT/0.5 ML ML SQ ONE (02:34)
[2018-10-02] MEDS ORDERED: INSULIN -REGULAR HUMAN 50 UNIT/0.5 ML ML ONE (02:43)
[2018-10-02] MEDS ORDERED: NA CHLORIDE 0.9% 1,000 ML IV SCH (03:00)
[2018-10-02] MEDS: NA CHLORIDE 0.9% 1,000 ML IV SCH ×3 (04:29→22:38)
[2018-10-02 05:29] LABS: Absolute Lymphocytes (CBC) 0.8 K/uL (0.7-4.9); Absolute Monocytes 0.5 K/uL (0.1-1.3); Absolute Neutrophil 2.2 K/uL (1.8-8.0); Basophils % 0.5 % (0-1.3); Eosinophils % 0.8 % (0-4.4); Lymphocytes % 23.2 % (15.3-44.8); MPV 8.4 fL (7.6-11.3); Monocytes % 14.4 % (3.3-12.3); RBC Red Blood Cell Count 4.29 M/uL (4.33-5.43)
[2018-10-02 05:39] LABS: BUN Blood Urea Nitrogen 8 mg/dL (7-18); Bicarbonate 19 mmol/L (21-32); Glucose Level 258 mg/dL (74-106); Potassium 3.2 mmol/L (3.5-5.1); Sodium Level 131 mmol/L (136-145)
[2018-10-02] MEDS: INSULIN -REGULAR HUMAN 50 UNIT/0.5 ML ML SQ SCH ×4 (07:30→21:05)
[2018-10-02] MEDS ORDERED: INFLUENZA VACCINE (for 3y+) 0.5 ML DOSE IMVAC ONE (08:00)
[2018-10-02] MEDS: INSULIN GLARGINE 100 UNITS/ML SQ SCH (08:59)
[2018-10-02] MEDS: ENOXAPARIN 40 MG/0.4 ML SQ SCH (09:01)
--- NOTE | 2018-10-02 10:34 | EKG ---
Test Date: 2018-10-01 Test Time: 12:38:27 System Operator: DEVAN MEASUREMENT RESULTS: Intervals: Rate: 66 AK: 196 QRSD: 110 QT: 444 QTc: 465 [place]: P: 80 AK: 196 QRS: 94 T: 65 INTERPRETIVE STATEMENTS: Normal sinus rhythm Rightward axis Borderline ECG Compared to ECG 06/25/2018 07:49:10 Right-axis deviation now present Myocardial infarct finding no longer present Electronically Signed On 10-01-18 17:48:11 CDT by Andrew Wood
--- NOTE | 2018-10-02 22:45 | P.PN ---
Subjective Date of Service: 10/02/18 Chief Complaint: Ketoacidosis Subjective: No C/O voiced, Improving Patient seen and examined at bedside. No family at bedside. Chart reviewed and case discussed with nursing staff. At the time of my exam this morning, patient was alert oriented x3 and in no acute distress. No acute events noted overnight. He has no complaints this morning. Review of Systems 10-point ROS is otherwise unremarkable Physical Examination - Vital Signs Temperature: 97.6 F Blood Pressure: 133/89 Pulse: 72 Respirations: 15 Pulse Ox (%): 100 - Physical Exam General: Alert, In no apparent distress, Oriented x3 HEENT: Atraumatic, PERRLA, EOMI Neck: Supple, JVD not distended Respiratory: Clear to auscultation bilaterally, Normal air movement Cardiovascular: Regular rate/rhythm, Normal S1 S2 Gastrointestinal: Normal bowel sounds, No tenderness Musculoskeletal: No tenderness Integumentary: No rashes Neurological: Normal speech, Normal tone, Normal affect Lymphatics: No axilla or inguinal lymphadenopathy Assessment And Plan - Current Problems (Diagnosis) (1) DKA (diabetic ketoacidoses) Status: Acute Qualifiers: Diabetes mellitus type: type 2 Diabetes mellitus complication detail: without coma Qualified Code(s): E11.10 - Type 2 diabetes mellitus with ketoacidosis without coma (2) Diabetes mellitus Status: Chronic Qualifiers: Diabetes mellitus type: type 2 Diabetes mellitus termite renewal inspector insulin use: without termite renewal inspector use Diabetes mellitus complication status: with ketoacidosis Diabetes mellitus complication detail: without coma Qualified Code(s): E11.10 - Type 2 diabetes mellitus with ketoacidosis without coma (3) Hypertension Status: Chronic Qualifiers: Hypertension type: essential hypertension Qualified Code(s): I10 - Essential (primary) hypertension (4) HLD (hyperlipidemia) Status: Chronic Qualifiers: Hyperlipidemia type: unspecified Qualified Code(s): E78.5 - Hyperlipidemia , unspecified - Plan On the day of admission, patient was in ER hold waiting for the ICU bed for DKA. While in the ER, he received IV insulin and IV fluids. His gap closed prior to receiving the ICU bed and therefore patient was then admitted on the floor. He remained stable, his blood sugars were controlled. He was transitioned to Lantus subq. Continue Lantus Continue electrolyte replacement If blood sugars continue to remain stable, patient remains asymptomatic likely discharge home in the next 24 hr
[2018-10-03] MEDS: KCL 20 MEQ/100 mL IVPB 20 MEQ/100 ML BAG IV SCH (00:47)
[2018-10-03] MEDS ORDERED: KCL 20 MEQ/100 mL IVPB 20 MEQ/100 ML BAG IV SCH (08:00)
[2018-10-03] MEDS: INSULIN -REGULAR HUMAN 50 UNIT/0.5 ML ML SQ SCH (08:36)
[2018-10-03] MEDS: INSULIN GLARGINE 100 UNITS/ML SQ SCH (08:37)
[2018-10-03] MEDS: NA CHLORIDE 0.9% 1,000 ML IV SCH (08:39)
[2018-10-03] MEDS: ENOXAPARIN 40 MG/0.4 ML SQ SCH (08:44)
--- NOTE | 2018-10-03 13:52 | P.PN ---
Date of Service: 10/03/18 CN received call from pharmacy that patient's insurance does not cover lantus. I called [facility] pharmacy, and spoke to pharmacist to convert prescription to Basaglar as insurance does cover it. New Rx: Basaglar 20 Units with breakfast, refills:3
--- NOTE | 2018-10-03 15:51 | P.DS ---
Admission Date: 10/01/18 Discharge Date: 10/03/18 Disposition: ROUTINE DISCHARGE Discharge Condition: GOOD Reason for Admission: Ketoacidosis - Problems (1) DKA (diabetic ketoacidoses) Status: Acute Qualifiers: Diabetes mellitus type: type 2 Diabetes mellitus complication detail: without coma Qualified Code(s): E11.10 - Type 2 diabetes mellitus with ketoacidosis without coma (2) Diabetes mellitus Status: Chronic Qualifiers: Diabetes mellitus type: type 2 Diabetes mellitus halfway insulin use: without watermelon inspector use Diabetes mellitus complication status: with ketoacidosis Diabetes mellitus complication detail: without coma Qualified Code(s): E11.10 - Type 2 diabetes mellitus with ketoacidosis without coma (3) Hypertension Status: Chronic Qualifiers: Hypertension type: essential hypertension Qualified Code(s): I10 - Essential (primary) hypertension (4) HLD (hyperlipidemia) Status: Chronic Qualifiers: Hyperlipidemia type: unspecified Qualified Code(s): E78.5 - Hyperlipidemia , unspecified Brief History of Present Illness: This is a 50 yr old male with a hx of DM2, HLD and HTN admitted for ketoacidosis. Per patient, saturday prior to admission, he had no bowel movements for 3 days and took epsom salt, which caused him to have non bloody, watery diarrhea. He then also started having nausea/vomiting which was progressively worsening. He saw his PCP, Dr. Link who though it may be his gallbladder and told him to come to the ED if his pain got progressively worse. Pain did not resolve and therefore he came to the ED. In the ED, his imaging was negative for any acute abdominal abnormalities, but he was found to have elevated blood sugars to the 300s and an anion gap of 21 with ketones in the urine. He was started on IVF and insulin and was admitted for DKA. At the time of my exam, pt was AAOx3, in no acute distress and was feeling better. Hospital Course: On the day of admission, patient was in ER hold waiting for the ICU bed for DKA. While in the ER, he received IV insulin and IV fluids. His gap closed prior to receiving the ICU bed and his blood sugars stabilized. Therefore patient was then admitted on the floor. He remained stable, his blood sugars were controlled. He was transitioned to Lantus subq. His electrolytes were replaced. He remained hemodynamically stable, alert oriented throughout the stay. At the time of discharge, he was alert oriented x3, in no acute distress. He was symptom free, tolerating a regular diet, ambulating without any concerns. He is discharged with a prescription for insulin. He was to continue his metformin and cover. He was instructed to follow up with his primary care physician next week for any further management/ changes. Educated on lifestyle modifications, including diet and exercise. States he does have a dietitian at [facility] but has not had time to see her. Recommended that see dietitian may help regulate his eating schedule. Vital Signs/Physical Exam: Temp Pulse Resp BP Pulse Ox 97.6 F 72 15 133/89 100 10/03/18 14:44 10/03/18 14:44 10/03/18 14:44 10/03/18 14:44 10/03/18 14:44 General: Alert, In no apparent distress, Oriented x3 HEENT: Atraumatic, PERRLA, EOMI Neck: Supple, JVD not distended Respiratory: Clear to auscultation bilaterally, Normal air movement Cardiovascular: Regular rate/rhythm, Normal S1 S2 Gastrointestinal: Normal bowel sounds, No tenderness Musculoskeletal: No tenderness Integumentary: No rashes Neurological: Normal speech, Normal tone, Normal affect Lymphatics: No axilla or inguinal lymphadenopathy Laboratory Data at Discharge: WBC 3.7 K/uL (4.3-10.9) L D 10/02/18 04:48 Hgb 14.1 g/dL (13.6-17.9) D 10/02/18 04:48 Hct 40.0 % (39.6-49.0) D 10/02/18 04:48 Plt Count 143 K/uL (152-406) L D 10/02/18 04:48 PT 11.0 SECONDS (9.5-12.5) 10/01/18 12:50 INR 0.93 10/01/18 12:50 Sodium 131 mmol/L (136-145) L 10/02/18 04:48 Potassium 3.5 mmol/L (3.5-5.1) 10/03/18 05:40 BUN 8 mg/dL (7-18) 10/02/18 04:48 Creatinine 0.80 mg/dL (0.55-1.3) 10/02/18 04:48 Glucose 258 mg/dL (74-106) H 10/02/18 04:48 Magnesium 2.4 mg/dL (1.8-2.4) 10/01/18 12:50 Total Bilirubin 0.6 mg/dL (0.2-1.0) 10/01/18 11:33 AST 35 U/L (15-37) 10/01/18 11:33 ALT 46 U/L (12-78) 10/01/18 11:33 Alkaline Phosphatase 81 U/L (45-117) 10/01/18 11:33 Triglycerides 290 mg/dL (<150) H 10/02/18 04:48 Cholesterol 147 mg/dL (<200) 10/02/18 04:48 HDL Cholesterol 36 mg/dL (40-60) L 10/02/18 04:48 Cholesterol/HDL Ratio 4.08 10/02/18 04:48 Lipase 148 U/L (73-393) 10/01/18 11:33 Home Medications: Atorvastatin Calcium [Lipitor] 40 mg PO BEDTIME 10/02/18 Canagliflozin [Invokana] 100 mg PO DAILY 10/02/18 Insulin Glargine Human [Lantus*] 20 units SQ DAILY WITH BREAKFAST #1 syr Lisinopril 40 mg PO DAILY 10/02/18 Metformin ER [Glucophage ER*] 1,000 mg PO BID 10/02/18 New Medications: Insulin Glargine Human [Lantus*] 20 units SQ DAILY WITH BREAKFAST #1 syr Patient Discharge Instructions: OK TO DC IV AND DC HOME. FOLLOW-UP WITH PRIMARY CARE PROVIDER IN 1-2 WEEKS. RETURN TO THE ER IF symptoms worsens. CALL or TEXT DR. SIDDIQUI AT [phone] IF ANY QUESTIONS REGARDING HOSPITAL STAY. PLEASE CALL THE FLOOR AT [phone] IF ANY MEDICATION OR NURSING QUESTIONS. Diet: ADA Activity: Fall precautions Time spent managing pt's care (in minutes): 55
== END 2018-10-03 11:15 | disposition home or self-care (01) | DRG 639 ==
LOC: ER 10:26 → ERHOLD 15:17 → 4TH 10-02 03:54
PROVIDERS: ADMIT Family Medicine; ATTEND Family Medicine
DX: E11.10 Type 2 diabetes mellitus with ketoacidosis without coma (principal); Z79.84 Long term (current) use of oral hypoglycemic drugs; I10 Essential (primary) hypertension; E78.5 Hyperlipidemia, unspecified
CPT/HCPCS: 36415; 71045; 74177; 76705; 80048; 80061; 80076; 81003; 82010; 82805; 82962; 83690; 83735; 83880; 83930; 83935; 84132; 84300; 84484; 85025; 85610; 93005; 96361; 96365; 96366; 96367; 96375; 99285; G0008; J1650; J2543; J7030; Q2035; Q9967

== ENCOUNTER 2019-09-11 07:29 | Inpatient (IN) | payer OTHER ==
[2019-09-11 08:40] LABS: Absolute Lymphocytes (CBC) 1.7 K/uL (0.7-4.9); Basophils % 0.5 % (0-1.3); Hematocrit 48.2 % (39.6-49.0); Lymphocytes % 24.7 % (15.3-44.8); MPV 8.1 fL (7.6-11.3)
[2019-09-11 08:43] LABS: Protime INR 0.87
[2019-09-11 08:57] LABS: Barbiturates NEGATIVE (NEGATIVE); Benzodiazepines NEGATIVE (NEGATIVE); Cocaine NEGATIVE (NEGATIVE); METHAMPHETAM NEGATIVE (NEGATIVE); Methadone NEGATIVE (NEGATIVE); Opiates NEGATIVE (NEGATIVE); Phencyclidine NEGATIVE (NEGATIVE); THC Cannibis NEGATIVE (NEGATIVE)
[2019-09-11 09:05] LABS: ALT/SGPT 34 U/L (12-78); AST/SGOT 17 U/L (15-37); Albumin 4.3 g/dL (3.4-5.0); Alkaline Phosphatase 64 U/L (45-117); BUN Blood Urea Nitrogen 10 mg/dL (7-18); Bicarbonate 18 mmol/L (21-32); Bilirubin Direct 0.1 mg/dL (0-0.2); Bilirubin Total 0.2 mg/dL (0.2-1.0); Glucose Level 264 mg/dL (74-106); Potassium 4.6 mmol/L (3.5-5.1); Protein, Total 7.9 g/dL (6.4-8.2); Sodium Level 135 mmol/L (136-145); Troponin (Emerg Dept Use Only) < 0.02 ng/mL (0.0-0.045)
[2019-09-11 09:41] LABS: Urine Blood NEGATIVE (NEG); Urine Glucose 2+ (NEG); Urine Protein NEGATIVE (NEG); Urine Specific Gravity 1.005 (1.005-1.030)
[2019-09-11 09:56] LABS: Arterial Blood Carboxyhemoglob 0.9 % (0-1.5); Blood Gas Oxyhemoglobin 93.6 % (94-97); Blood O2 Saturation 95.4 % (92-98.5)
--- NOTE | 2019-09-11 10:33 | EDPHYS ---
Physician Documentation [facility] Name: Dudley Castellano Age: 29 yrs Sex: Male : 1990 Arrival Date: 09/11/2019 Time: 07:31 Bed 16 Private MD: ED Physician Luis Umaña HPI: 09/11 07:45 This 29 yrs old Male presents to ER via EMS with complaints of weakness. jmm 07:45 The patient presents with trouble concentrating. Onset: The symptoms/episode jmm began/occurred this morning. Possible causes: elevated blood glucose. Associated signs and symptoms: Pertinent positives: weakness. This is a 29 year old male with a history of dm, htn, that presents to the ED with complaints generalized weakness, slurred speech. Patient states he has had similar episodes before due to elevated BLG. Patient states he began taking farciga 2 months ago. Denies unilateral weakness. Historical: - Allergies: 07:47 No Known Allergies; ph - Home Meds: 07:47 Metformin Oral [Active]; Farxiga oral oral [Active]; atorvastatin oral oral [Active]; ph Lisinopril Oral [Active]; - PMHx: 07:47 Diabetes - NIDDM; Hypertension; ph - Immunization history:: Adult Immunizations unknown. - Coronavirus screen:: The patient has NOT traveled to [place] in the past 14 days. The patient has NOT had contact with known/suspected case of Coronavirus?. - Social history:: Smoking status: Patient denies any tobacco usage or history of. Patient uses alcohol, occasionally. - Ebola Screening: : No symptoms or risks identified at this time. ROS: 07:35 Constitutional: Negative for fever, chills, and weight loss, Cardiovascular: Negative jmm for chest pain, palpitations, and edema, Respiratory: Negative for shortness of breath, cough, wheezing, and pleuritic chest pain, Abdomen/GI: Negative for abdominal pain, nausea, vomiting, diarrhea, and constipation. 07:35 Neuro: Positive for weakness. 07:35 All other systems are negative. Exam: 07:35 Constitutional: This is a well developed, well nourished patient who is awake, alert, jmm and in no acute distress. Head/Face: atraumatic. ENT: Moist Mucus Membranes 07:35 Neck: Trachea midline, Supple Chest/axilla: Normal chest wall appearance and motion. Cardiovascular: Regular rate and rhythm. No edema appreciated Respiratory: Normal respirations, no respiratory distress appreciated Abdomen/GI: Non distended, soft Back: Normal ROM Skin: General appearance color normal MS/ Extremity: Moves all extremities, no obvious deformities appreciated, no edema noted to the lower extremities 07:35 Eyes: Pupils: dilated, bilaterally. 07:35 Neuro: Orientation: is normal, Mentation: is normal, Memory: is normal, Cranial nerves: Speech is slurred, Motor: is normal. 07:35 Psych: Behavior/mood is pleasant, cooperative. Vital Signs: 07:41 BP 122 / 74; Pulse 110; Resp 18; Temp 98.3; Pulse Ox 96% on R/A; Weight 104.33 kg; ph 08:45 BP 120 / 72; Pulse 101; Resp 16; Pulse Ox 98% on R/A; ph 09:42 BP 121 / 69; Pulse 98; Resp 18; Pulse Ox 100% on R/A; em1 10:45 BP 121 / 67; Pulse 91; Resp 16; Pulse Ox 99% on R/A; ph 11:45 BP 112 / 67; Pulse 93; Resp 18; Pulse Ox 98% on R/A; ph MDM: 07:[address] [facility] 10:30 Data reviewed: vital signs, nurses notes. Counseling: I had a detailed discussion with [facility] the patient and/or guardian regarding: the historical points, exam findings, and any diagnostic results supporting the discharge/admit diagnosis, lab results, the need for outpatient follow up, the need for further work-up and treatment in the hospital. ED course: I discussed the patient with Dr. Gifford whom accepted admission. 11:01 ED course: Patient refuses admission. Patient advised of the need for admission due to [facility] DKA and that his condition was life threatening. Patient no longers slurred speech. Patient appears to be able to make informed decision. Patient was given strict return precautions. . 09/11 07:45 Order name: Acetaminophen; Complete Time: 09:18 [facility] 09/11 07:45 Order name: Basic Metabolic Panel; Complete Time: 09:18 [facility] 09/11 07:45 Order name: CBC with Diff; Complete Time: 08:43 [facility] 09/11 07:45 Order name: ETOH Level; Complete Time: 09:18 [facility] 09/11 07:45 Order name: Hepatic Function; Complete Time: 09:18 [facility] 09/11 07:45 Order name: PT-INR; Complete Time: 08:49 [facility] 09/11 07:45 Order name: Ptt, Activated; Complete Time: 08:49 [facility] 09/11 07:45 Order name: Salicylate; Complete Time: 09:18 [facility] 09/11 07:45 Order name: Urine Drug Screen; Complete Time: 09:00 [facility] 09/11 07:45 Order name: Troponin (emerg Dept Use Only); Complete Time: 09:18 [facility] 09/11 07:46 Order name: Glucose, Ancillary Testing; Complete Time: 08:22 [facility] 09/11 08:48 Order name: Urine Dipstick--Ancillary (enter results); Complete Time: 09:47 [facility] 09/11 09:26 Order name: ABG; Complete Time: 11:57 [facility] 09/11 11:08 Order name: Urinalysis [facility] 09/11 07:45 Order name: EKG; Complete Time: 07:47 [facility] 09/11 07:45 Order name: EKG - Nurse/Tech; Complete Time: 09:47 [facility] 09/11 07:45 Order name: IV Saline Lock; Complete Time: 09:45 [facility] 09/11 07:45 Order name: Labs collected and sent; Complete Time: 09:45 [facility] 09/11 08:47 Order name: CT Head Brain wo Cont [facility] 09/11 11:08 Order name: NPO [facility] 09/11 11:08 Order name: Basic Metabolic Panel [facility] 09/11 11:08 Order name: Basic Metabolic Panel [facility] 09/11 11:08 Order name: CBC with Automated Diff [facility] 09/11 11:08 Order name: CBC with Automated Diff [facility] 09/11 11:08 Order name: Magnesium [facility] 09/11 11:08 Order name: Magnesium [facility] 09/11 11:08 Order name: Phosphorus [facility] 09/11 11:08 Order name: Phosphorus [facility] 09/11 07:45 Order name: Urine Dipstick-Ancillary (obtain specimen); Complete Time: 09:45 jm Administered Medications: 09:35 Drug: NS 0.9% 1000 ml Route: IV; Rate: 1 bolus; Site: right forearm; ph 10:45 Follow up: Response: No adverse reaction; IV Status: Completed infusion ph 12:03 Not Given (Patient Refused): NS 0.9% 1000 ml IV at 1 bolus Per protocol; 1000 mL bolus ph Disposition: 13:01 Co-signature as Attending Physician, Luis Umaña MD I agree with the assessment and kdr plan of care. Disposition: 09/11/19 10:31 Hospitalization ordered by Ugo Gifford for Inpatient Admission. Preliminary diagnosis are Other specified diabetes mellitus with ketoacidosis without coma, Alcohol abuse with intoxication. - Bed requested for Telemetry/MedSurg (Inpatient). - Status is Inpatient Admission. eb - Condition is Stable. - Problem is an acute exacerbation. - Symptoms are unchanged. Signatures: Dispatcher [employer] EDMS Luis Umaña MD MD kdr Mickail, Joel, PA PA Alla Byrd RN RN ph Sarah Rico Corrections: (The following items were deleted from the chart) 08:43 07:45 This 29 yrs old Male presents to ER via EMS with complaints of weakness. [facility] 10:46 10:31 Hospitalization Ordered by Ugo Gifford MD for Inpatient Admission. Preliminary eb diagnosis is Other specified diabetes mellitus with ketoacidosis without coma; Alcohol abuse with intoxication. Bed requested for Telemetry/MedSurg (Inpatient). Status is Inpatient Admission. Condition is Stable. Problem is an acute exacerbation. Symptoms are unchanged. [facility] 11:16 10:46 09/11/2019 10:31 Hospitalization Ordered by Ugo Gifford MD for Inpatient eb Admission. Preliminary diagnosis is Other specified diabetes mellitus with ketoacidosis without coma; Alcohol abuse with intoxication. Bed requested for Telemetry/MedSurg (Inpatient). Status is Inpatient Admission. Condition is Stable. Problem is an acute exacerbation. Symptoms are unchanged. 12:13 11:16 09/11/2019 10:31 Hospitalization Ordered by Ugo Gifford MD for Inpatient eb Admission. Preliminary diagnosis is Other specified diabetes mellitus with ketoacidosis without coma; Alcohol abuse with intoxication. Bed requested for Telemetry/MedSurg (Inpatient). Status is Inpatient Admission. Condition is Stable. Problem is an acute exacerbation. Symptoms are unchanged. eb
--- NOTE | 2019-09-11 10:33 | ER ---
Nurse's Notes [facility] Name: Dudley Castellano Age: 29 yrs Sex: Male : 1990 Arrival Date: 09/11/2019 Time: 07:31 Bed 16 Private MD: Diagnosis: Other specified diabetes mellitus with ketoacidosis without coma;Alcohol abuse with intoxication Presentation: 09/11 07:35 Presenting complaint: EMS states: Pt at work this morning, co workers noticed confusion ph and slurred speech, pt hx of NIDM, BGL 414 for EMS, pt denies recent illness, IV established and NS adminsitered. Transition of care: patient was not received from another setting of care. Onset of symptoms was September 11, 2019. Risk Assessment: Do you want to hurt yourself or someone else? Patient reports no desire to harm self or others. Initial Sepsis Screen: Does the patient meet any 2 criteria? No. Patient's initial sepsis screen is negative. Does the patient have a suspected source of infection? No. Patient's initial sepsis screen is negative. Care prior to arrival: Medication(s) given: Normal saline infusion, 250 mL IV initiated. 20 GA, in the right antecubital area, Glucose check: 414. 07:35 Method Of Arrival: EMS: [facility] 07:35 Acuity: DELMER 2 ph Historical: - Allergies: 07:47 No Known Allergies; ph - Home Meds: 07:47 Metformin Oral [Active]; Farxiga oral oral [Active]; atorvastatin oral oral [Active]; ph Lisinopril Oral [Active]; - PMHx: 07:47 Diabetes - NIDDM; Hypertension; ph - Immunization history:: Adult Immunizations unknown. - Coronavirus screen:: The patient has NOT traveled to [place] in the past 14 days. The patient has NOT had contact with known/suspected case of Coronavirus?. - Social history:: Smoking status: Patient denies any tobacco usage or history of. Patient uses alcohol, occasionally. - Ebola Screening: : No symptoms or risks identified at this time. Screenin:48 Abuse screen: Denies threats or abuse. Denies injuries from another. Nutritional ph screening: No deficits noted. Tuberculosis screening: No symptoms or risk factors identified. Fall Risk None identified. Assessment: 07:49 General: Appears in no apparent distress. comfortable, well groomed, Behavior is calm, ph cooperative, appropriate for age, Smells of alcohol. Pain: Denies pain. Neuro: Level of Consciousness is awake, alert, obeys commands, Oriented to person, place, time, situation, Moves all extremities. Full function Speech is slurred, Facial symmetry appears normal, Facial symmetry: tongue is midline, Pupils are dilated, Intact. Cardiovascular: Capillary refill < 3 seconds in bilateral fingers Patient's skin is warm and dry. Rhythm is sinus tachycardia. Respiratory: Airway is patent Respiratory effort is even, unlabored. GI: Abdomen is round non-distended, Patient currently denies abdominal pain, nausea, vomiting. Derm: Skin is intact, is healthy with good turgor, Skin is pink, warm \\T\\ dry. Musculoskeletal: Circulation, motion, and sensation intact. Range of motion: intact in all extremities. 08:50 Reassessment: Patient appears in no apparent distress at this time. Patient and/or ph family updated on plan of care and expected duration. Pain level reassessed. Patient is alert, oriented x 3, equal unlabored respirations, skin warm/dry/pink. Pt resting quietly, employer and occupational health nurse at bedside for Breathalyzer and possible blood draw, pt consents to procedure. 09:07 Reassessment: Patient appears in no apparent distress at this time. Patient and/or ph family updated on plan of care and expected duration. Pain level reassessed. Patient is alert, oriented x 3, equal unlabored respirations, skin warm/dry/pink. Code stroke called per ERP request due to onset of slurred speech at 0600 today, pt in TPA window, no other deficits noted. 09:15 Reassessment: Patient appears in no apparent distress at this time. Patient and/or ph family updated on plan of care and expected duration. Pain level reassessed. Patient is alert, oriented x 3, equal unlabored respirations, skin warm/dry/pink. Pt taken to CT via stretcher, upon arriving to radiology pt states, "Why do I need a CT? I'm not having a stroke. Y'all just want to run my bill up." Explained to pt reasoning behind CT for stroke like symptoms. Pt continues to refuse CT scan, taken back to room 16 via stretcher, employers and occupational health nurse at bedside. 10:30 Reassessment: Patient appears in no apparent distress at this time. Patient and/or ph family updated on plan of care and expected duration. Pain level reassessed. Patient is alert, oriented x 3, equal unlabored respirations, skin warm/dry/pink. Hospitalist at bedside to speak w/ pt, pt states, " I do not want to be admitted to the hospital, I want to go home." Risks of pt's condition explained to him by hospitalist and RN, pt remains adamant about leaving, states, " I've already called my mom and she's on her way." Pt to leave AMA. 12:00 Reassessment: Patient appears in no apparent distress at this time. Patient and/or ph family updated on plan of care and expected duration. Pain level reassessed. Patient is alert, oriented x 3, equal unlabored respirations, skin warm/dry/pink. Mother at bedside, explained to mother the risks of pt leaving and encouraged her to bring pt back to ED if symptoms worsen. Pt left department w/ mother. Vital Signs: 07:41 BP 122 / 74; Pulse 110; Resp 18; Temp 98.3; Pulse Ox 96% on R/A; Weight 104.33 kg; ph 08:45 BP 120 / 72; Pulse 101; Resp 16; Pulse Ox 98% on R/A; ph 09:42 BP 121 / 69; Pulse 98; Resp 18; Pulse Ox 100% on R/A; em1 10:45 BP 121 / 67; Pulse 91; Resp 16; Pulse Ox 99% on R/A; ph 11:45 BP 112 / 67; Pulse 93; Resp 18; Pulse Ox 98% on R/A; ph ED Course: 07:30 Maintain EMS IV. Dressing intact. Good blood return noted. Site clean \\T\\ dry. Gauge \\T\\ ph site: 20 RFA. 07:31 Patient arrived in ED. tw2 07:32 Luis Umaña MD is Attending Physician. kdr 07:32 German Garza PA is PHCP. jmm 07:35 Alla Link, KINDRA is Primary Nurse. ph 07:41 Triage completed. ph 07:48 Arm band placed on Patient placed in an exam room, on a stretcher, on desk monitor, ph on pulse oximetry. 07:48 Patient has correct armband on for positive identification. Bed in low position. Call ph light in reach. Side rails up X 1. traffic monitor specialist on. Pulse ox on. NIBP on. Door closed. Noise minimized. Warm blanket given. 10:31 Ugo Gifford MD is Hospitalizing Provider. [facility] 12:01 No provider procedures requiring assistance completed. IV discontinued, intact, ph bleeding controlled, No redness/swelling at site. Pressure dressing applied. Administered Medications: 09:35 Drug: NS 0.9% 1000 ml Route: IV; Rate: 1 bolus; Site: right forearm; ph 10:45 Follow up: Response: No adverse reaction; IV Status: Completed infusion ph 12:03 Not Given (Patient Refused): NS 0.9% 1000 ml IV at 1 bolus Per protocol; 1000 mL bolus ph Outcome: :31 Decision to Hospitalize by Provider. blayne 12:02 AMA AMA form signed ph 12:02 unknown 12:13 Patient left the ED. eb Signatures: Luis Umaña MD MD kdr Mickail, Joel, PA PA Hu Rodriguez 1 Alla Link RN RN Mackenzie Masters RN RN 2 Sarah Rico
[2019-09-11] MEDS ORDERED: ONDANSETRON 4 MG/2 ML VIAL IV PRN (11:01)
[2019-09-11] MEDS ORDERED: ACETAMINOPHEN 500 MG TAB PO PRN (11:01)
--- NOTE | 2019-09-11 11:01 | P.HP ---
Certification for Inpatient Patient admitted to: Inpatient With expected LOS: >2 Midnights Practitioner: I am a practitioner with admitting privileges, knowledge of patient current condition, hospital course, and medical plan of care. Services: Services provided to patient in accordance with Admission requirements found in Title 42 Section 412.3 of the Code of Federal Regulations Patient History Date of Service: 09/11/19 Reason for admission: AMS, Generalised weakness History of Present Illness: 29 year old male with a history of DM, HTN, that presents to the ED with complaints generalized weakness, slurred speech. Patient states he has had similar episodes before due to elevated blood glucose. Patient states he began taking farxiga 2 months ago. Denies unilateral weakness. No fever or chills . Denies any abdominal pain . Patient stated that he has been drinking too much alcohol yesterday. Denies any chest pain or SOB Allergies No Known Allergies Allergy (Verified 10/01/18 18:10) Home medications list reviewed: Yes Home Medications: Atorvastatin Calcium [Lipitor] 40 mg PO BEDTIME 10/02/18 Canagliflozin [Invokana] 100 mg PO DAILY 10/02/18 Insulin Glargine Human [Lantus*] 20 units SQ DAILY WITH BREAKFAST #1 syr Metformin ER [Glucophage ER*] 1,000 mg PO BID 10/02/18 lisinopriL [Lisinopril] 40 mg PO DAILY 10/02/18 - Past Medical/Surgical History Past Medical History: Reviewed- Non-Contributory -: DM2 -: HTN -: HLD Past Surgical History: Reviewed- Non-Contributory - Family History Family History: Reviewed- Non-Contributory - Social History Smoking Status: Never smoker Caffeine use: Yes Review of Systems 10-point ROS is otherwise unremarkable Physical Examination - Vital Signs Temperature: 98.6 F Pulse: 86 Respirations: 20 Pulse Ox (%): 98 - Physical Exam General: Alert, In no apparent distress HEENT: Atraumatic, Normocephalic Neck: Supple, 2+ carotid pulse no bruit Respiratory: Clear to auscultation bilaterally, Normal air movement Cardiovascular: Normal pulses, Regular rate/rhythm Capillary refill: <2 Seconds Gastrointestinal: Soft and benign, Non-distended Musculoskeletal: No clubbing, No swelling Integumentary: No rashes, No breakdown Neurological: Normal gait, Normal strength at 5/5 x4 extr Lymphatics: No axilla or inguinal lymphadenopathy External genitalia: Deferred Rectal: Deferred - Studies Laboratory Data (last 24 hrs) 09/11/19 08:25: PT 10.3, INR 0.87, APTT 28.1 09/11/19 08:25: WBC 6.7, Hgb 16.4, Hct 48.2, Plt Count 256 09/11/19 08:25: Sodium 135 L, Potassium 4.6, BUN 10, Creatinine 0.72, Glucose 264 H, Total Bilirubin 0.2, AST 17, ALT 34, Alkaline Phosphatase 64 Assessment and Plan - Problems (Diagnosis) (1) Alcohol abuse Current Visit: Yes Status: Acute (2) Metabolic acidosis Current Visit: Yes Status: Acute (3) DKA (diabetic ketoacidoses) Current Visit: No Status: Acute Qualifiers: Diabetes mellitus type: type 2 Diabetes mellitus complication detail: without coma Qualified Code(s): E11.10 - Type 2 diabetes mellitus with ketoacidosis without coma (4) Diabetes mellitus Current Visit: No Status: Chronic Qualifiers: Diabetes mellitus type: type 2 Diabetes mellitus superintendent terminal insulin use: without superintendent terminal use Diabetes mellitus complication status: with ketoacidosis Diabetes mellitus complication detail: without coma Qualified Code(s): E11.10 - Type 2 diabetes mellitus with ketoacidosis without coma (5) HLD (hyperlipidemia) Current Visit: No Status: Chronic Qualifiers: Hyperlipidemia type: unspecified Qualified Code(s): E78.5 - Hyperlipidemia , unspecified (6) Hypertension Current Visit: No Status: Chronic Qualifiers: Hypertension type: essential hypertension Qualified Code(s): I10 - Essential (primary) hypertension - Plan Metabolic Acidosis Daibetic Ketoacidosis Hyperglycemia Alcohol Abuse DM HTN HLD Plan Monitor Closely under telemetry Aggressive Hydration Monitor electrolytes and replace as needed Continue Home medications and titrate Ordered Insulin Patient declines Insulin Reiterated the need for aggressive hydration and Insulin DT precautions Gi/DVT prophylaxis Discharge Plan: Home Plan to discharge in: 48 Hours - Advance Directives Does patient have a Living Will: No Does patient have a Durable POA for Healthcare: No Time Spent Managing Pts Care (In Minutes): 43
[2019-09-11] MEDS ORDERED: NA CHLORIDE 0.9% 1,000 ML IV ONE (11:06)
[2019-09-11] MEDS ORDERED: INSULIN -REGULAR HUMAN 50 UNIT/0.5 ML ML SQ SCH (11:15)
[2019-09-11] MEDS ORDERED: NA CHLORIDE 0.9% 1,000 ML IV SCH (12:00)
[2019-09-11 12:33] VITALS: BP 112/67; O2SAT 98
[2019-09-11 12:35] VITALS: TEMP 98.6
== END 2019-09-11 12:02 | disposition left against medical advice (07) | DRG 638 ==
LOC: ER 07:29 → ERHOLD 11:03
PROVIDERS: ADMIT Family Medicine; ATTEND Family Medicine
DX: E11.10 Type 2 diabetes mellitus with ketoacidosis without coma (principal); E87.2 Acidosis; F10.10 Alcohol abuse, uncomplicated; E11.65 Type 2 diabetes mellitus with hyperglycemia; I10 Essential (primary) hypertension; E78.5 Hyperlipidemia, unspecified; Z79.4 Long term (current) use of insulin
CPT/HCPCS: 36415; 80048; 80076; 80307; 80320; 80329; 81003; 82805; 82947; 84484; 85025; 85610; 85730; 96360; 99284

== ENCOUNTER 2019-09-14 12:09 | Inpatient (IN) | payer OTHER ==
[2019-09-14] MEDS ORDERED: NA CHLORIDE 0.9% 3,000 ML ONE (12:47)
[2019-09-14 13:10] LABS: Absolute Lymphocytes (CBC) 0.9 K/uL (0.7-4.9); Basophils % 0.6 % (0-1.3); Hematocrit 56.1 % (39.6-49.0); Lymphocytes % 11.4 % (15.3-44.8); MPV 9.1 fL (7.6-11.3); RBC Red Blood Cell Count 5.66 M/uL (4.33-5.43)
[2019-09-14] MEDS ORDERED: ONDANSETRON 4 MG/2 ML VIAL ONE (13:32)
[2019-09-14] MEDS ORDERED: MORPHINE 4 MG/ML SYR ONE (13:42)
[2019-09-14 13:55] LABS: ALT/SGPT 66 U/L (12-78); AST/SGOT 41 U/L (15-37); Albumin 5.2 g/dL (3.4-5.0); Alkaline Phosphatase 85 U/L (45-117); Amylase 237 U/L (25-115); BUN Blood Urea Nitrogen 28 mg/dL (7-18); Bicarbonate 7 mmol/L (21-32); Bilirubin Direct 0.1 mg/dL (0-0.2); Bilirubin Total 0.6 mg/dL (0.2-1.0); Glucose Level 509 mg/dL (74-106); Lipase 236 U/L (73-393); Phosphorus 5.4 mg/dL (2.5-4.9); Potassium 4.5 mmol/L (3.5-5.1); Sodium Level 120 mmol/L (136-145)
[2019-09-14 14:16] LABS: Urine Blood TRACE (NEG); Urine Glucose 2+ (NEG); Urine Protein 1+ (NEG)
--- NOTE | 2019-09-14 14:31 | ER ---
Nurse's Notes [facility] Name: Dudley Castellano Age: 29 yrs Sex: Male : 1990 Arrival Date: 09/14/2019 Time: 12:10 Bed 7 Private MD: Diagnosis: Diabetes mellitus due to underlying condition with ketoacidosis Presentation: 09/14 12:19 Presenting complaint: N/V and right sided abdominal pain x 3 days, SOB x 2 hrs. hb Transition of care: patient was not received from another setting of care. Onset of symptoms was September 12, 2019. Risk Assessment: Do you want to hurt yourself or someone else? Patient reports no desire to harm self or others. Care prior to arrival: None. 12:19 Method Of Arrival: Ambulatory hb 12:19 Acuity: DELMER 2 hb 12:30 Initial Sepsis Screen: Does the patient meet any 2 criteria? RR > 20 per min. HR > 90 ca1 bpm. Yes Does the patient have a suspected source of infection? No. Patient's initial sepsis screen is negative. Historical: - Allergies: 12:21 No Known Allergies; hb - Home Meds: 12:21 atorvastatin Oral [Active]; Farxiga Oral [Active]; lisinopril Oral [Active]; inokana hb [Active]; Metformin Oral [Active]; - PMHx: 12:21 Diabetes - NIDDM; Hypertension; hb - Immunization history:: Adult Immunizations up to date, Flu vaccine is up to date. - Coronavirus screen:: The patient has NOT traveled to [place] in the past 14 days. The patient has NOT had contact with known/suspected case of Coronavirus?. - Social history:: Patient/guardian denies using alcohol, street drugs, The patient lives with family, Smoking status: Patient denies any tobacco usage or history of. - Family history:: not pertinent. - Ebola Screening: : Patient negative for fever greater than or equal to 101.5 degrees Fahrenheit, and additional compatible Ebola Virus Disease symptoms Patient denies exposure to infectious person Patient denies travel to an Ebola-affected area in the 21 days before illness onset No symptoms or risks identified at this time. Screenin:30 Abuse screen: Denies threats or abuse. Denies injuries from another. Nutritional ca1 screening: No deficits noted. Tuberculosis screening: No symptoms or risk factors identified. Fall Risk IV access (20 points). Assessment: 12:30 General: Appears in no apparent distress. uncomfortable, ill, Behavior is calm, ca1 cooperative, appropriate for age. Pain: Complains of pain in right upper quadrant. Neuro: Level of Consciousness is awake, alert, obeys commands, Oriented to person, place, time, situation, Appropriate for age. Cardiovascular: Heart tones S1 S2 present Capillary refill < 3 seconds Patient's skin is warm and dry. Rhythm is sinus tachycardia. Respiratory: Airway is patent Respiratory effort is even, unlabored, Respiratory pattern is symmetrical, tachypnea Breath sounds are clear bilaterally. GI: Abdomen is round non-distended, Bowel sounds present X 4 quads. Abd is soft X 4 quads Abdomen is tender to palpation in right upper quadrant Reports nausea. : No signs and/or symptoms were reported regarding the genitourinary system. EENT: No signs and/or symptoms were reported regarding the EENT system. Derm: Skin is intact, is healthy with good turgor, Skin is pink, warm \T\ dry. Musculoskeletal: Circulation, motion, and sensation intact. Capillary refill < 3 seconds. 12:30 Reassessment: Requested for water. Instructed on NPO. ca1 12:35 Reassessment: Requested for ice chips, notified Dr. Vera. Provider says ok with ice ca1 chips. Glycerin swabs given to pt. 13:30 Reassessment: Patient appears in no apparent distress at this time. No changes from ca1 previously documented assessment. Patient is alert, oriented x 3, equal unlabored respirations, skin warm/dry/pink. 13:35 Reassessment: PT vomited once and c/o abdominal pain. Notified provider. Meds ordered ca1 and given. 14:32 Reassessment: Patient appears in no apparent distress at this time. Patient and/or ca1 family updated on plan of care and expected duration. Pain level reassessed. Patient is alert, oriented x 3, equal unlabored respirations, skin warm/dry/pink. Patient states feeling better. 14:53 Reassessment: Hospitalist at bedside. ca1 15:54 Reassessment: Patient appears in no apparent distress at this time. Patient is alert, ca1 oriented x 3, equal unlabored respirations, skin warm/dry/pink. 15:58 Reassessment: BGL 320. ca1 Vital Signs: 12:21 BP 134 / 103; Pulse 122; Resp 24; Temp 97.4; Pulse Ox 100% on R/A; Weight 99.79 kg; hb Height 5 ft. 10 in. (177.80 cm); Pain 8/10; 12:55 BP 147 / 92; Pulse 114; Resp 23; Pulse Ox 100% on 4 lpm Simple Mask; ca1 13:09 BP 171 / 75; Pulse 120; Resp 25 S; Pulse Ox 100% on R/A; ca1 14:13 BP 140 / 71; Pulse 101; Resp 23; Pulse Ox 100% ; sv 14:54 BP 142 / 83; Pulse 102; Resp 19 S; Pulse Ox 100% on R/A; ca1 15:54 BP 132 / 68; Pulse 101; Resp 27; Temp 97.7(TE); Pulse Ox 100% on R/A; ca1 12:21 Body Mass Index 31.57 (99.79 kg, 177.80 cm) hb ED Course: 12:10 Patient arrived in ED. rg4 12:20 Triage completed. hb 12:21 Arm band placed on. hb 12:25 Vanita Vera MD is Attending Physician. ma2 12:25 Mimi Gutierrez, KINDRA is Primary Nurse. ca1 12:30 Patient has correct armband on for positive identification. Placed in gown. Bed in low ca1 position. Call light in reach. Side rails up X2. site monitor on. Pulse ox on. NIBP on. Warm blanket given. 12:41 Initial lab(s) drawn, by me, held in ED. Inserted saline lock: 18 gauge in right iw antecubital area, using aseptic technique. Blood collected. 14:26 Inserted saline lock: 20 gauge in left antecubital area, using aseptic technique. ca1 14:29 Dominick Rojas is Hospitalizing Provider. ma2 14:53 No provider procedures requiring assistance completed. Patient admitted, IV remains in ca1 place. Administered Medications: 12:41 Drug: NS 0.9% 3000 ml Route: IV; Rate: 1000 ml; Site: right antecubital; ca1 14:39 Follow up: Urine output 500 ml; Response: No adverse reaction; IV Status: Completed ca1 infusion 13:35 Drug: Zofran 4 mg Route: IVP; Site: right antecubital; ca1 14:33 Follow up: Response: No adverse reaction; Nausea is decreased ca1 13:37 Drug: morphine 4 mg {Note: RASS -0.} Route: IVP; Site: right antecubital; ca1 14:33 Follow up: Response: No adverse reaction; Pain is decreased; RASS: Alert and Calm (0) ca1 14:52 Drug: Insulin Drip - (Insulin Regular Human 100 units, NS 0.9% 100 ml) {Co-Signature: ca1 iw (Mariana Leary RN).} Route: IV; Rate: calculated rate; Site: right antecubital; 14:53 Follow up: IV Status: Infusion continued upon admission ca1 Point of Care Testing: Blood Glucose: 12:23 Blood Glucose: High (>450 mg/dL); hb Ranges: Output: 14:39 Urine: 500ml; Total: 500ml. ca1 15:56 Urine: 1300ml (Voided); Total: 1800ml. ca1 Outcome: 14:30 Decision to Hospitalize by Provider. ma2 15:54 Admitted to ICU accompanied by nurse, accompanied by tech, via stretcher, room 8, on ca1 monitor, with chart, Report called to KINDRA Soliz 15:54 Condition: stable 15:54 Instructed on the need for admit. 16:18 Patient left the ED. ca1 Signatures: Nery Nguyen RN RN sv Williams, Irene, RN RN Mabel Phillips RN RN hb Garcia, Rubi rg4 Vanita Vera MD MD ma2 Mimi Gutierrez RN RN ca1 Mariana choi Corrections: (The following items were deleted from the chart) 12:23 12:19 Acuity: DELMER 3 hb hb 12:50 12:41 Initial lab(s) drawn, by me, sent to lab. iw ca1
--- NOTE | 2019-09-14 14:32 | EDPHYS ---
Physician Documentation [facility] Name: Dudley Castellano Age: 29 yrs Sex: Male : 1990 Arrival Date: 09/14/2019 Time: 12:10 Bed 7 Private MD: ED Physician Vanita Vera HPI: 09/14 14:28 This 29 yrs old Male presents to ER via Ambulatory with complaints of ma2 Abdominal Pain, Nausea. 14:28 The patient presents to the emergency department with nausea, vomiting. Onset: The ma2 symptoms/episode began/occurred gradually, 3 day(s) ago. Associated signs and symptoms: Pertinent negatives: anorexia, constipation, fever, GI bleeding. Severity of symptoms: At their worst the symptoms were mild moderate in the emergency department the symptoms are unchanged. The patient has experienced similar episodes in the past. Historical: - Allergies: 12:21 No Known Allergies; hb - Home Meds: 12:21 atorvastatin Oral [Active]; Farxiga Oral [Active]; lisinopril Oral [Active]; inokana hb [Active]; Metformin Oral [Active]; - PMHx: 12:21 Diabetes - NIDDM; Hypertension; hb - Immunization history:: Adult Immunizations up to date, Flu vaccine is up to date. - Coronavirus screen:: The patient has NOT traveled to [place] in the past 14 days. The patient has NOT had contact with known/suspected case of Coronavirus?. - Social history:: Patient/guardian denies using alcohol, street drugs, The patient lives with family, Smoking status: Patient denies any tobacco usage or history of. - Family history:: not pertinent. - Ebola Screening: : Patient negative for fever greater than or equal to 101.5 degrees Fahrenheit, and additional compatible Ebola Virus Disease symptoms Patient denies exposure to infectious person Patient denies travel to an Ebola-affected area in the 21 days before illness onset No symptoms or risks identified at this time. ROS: 14:28 Constitutional: Negative for fever, chills, and weight loss. ma2 14:28 All other systems are negative. Exam: 14:28 Head/Face: Normocephalic, atraumatic. ENT: Nares patent. No nasal discharge, no ma2 septal abnormalities noted. Tympanic membranes are normal and external auditory canals are clear. Oropharynx with no redness, swelling, or masses, exudates, or evidence of obstruction, uvula midline. Mucous membranes moist. Neck: Trachea midline, no thyromegaly or masses palpated, and no cervical lymphadenopathy. Supple, full range of motion without nuchal rigidity, or vertebral point tenderness. No Meningismus. Cardiovascular: Regular rate and rhythm with a normal S1 and S2. No gallops, murmurs, or rubs. Normal PMI, no JVD. No pulse deficits. Respiratory: Lungs have equal breath sounds bilaterally, clear to auscultation and percussion. No rales, rhonchi or wheezes noted. No increased work of breathing, no retractions or nasal flaring. Abdomen/GI: Soft, non-tender, with normal bowel sounds. No distension or tympany. No guarding or rebound. No evidence of tenderness throughout. Neuro: Awake and alert, GCS 15, oriented to person, place, time, and situation. Cranial nerves II-XII grossly intact. Motor strength 5/5 in all extremities. Sensory grossly intact. Cerebellar exam normal. Normal gait. Psych: Awake, alert, with orientation to person, place and time. Behavior, mood, and affect are within normal limits. 14:28 Constitutional: The patient appears in obvious distress, moderately distressed. Vital Signs: 12:21 BP 134 / 103; Pulse 122; Resp 24; Temp 97.4; Pulse Ox 100% on R/A; Weight 99.79 kg; hb Height 5 ft. 10 in. (177.80 cm); Pain 8/10; 12:55 BP 147 / 92; Pulse 114; Resp 23; Pulse Ox 100% on 4 lpm Simple Mask; ca1 13:09 BP 171 / 75; Pulse 120; Resp 25 S; Pulse Ox 100% on R/A; ca1 14:13 BP 140 / 71; Pulse 101; Resp 23; Pulse Ox 100% ; sv 14:54 BP 142 / 83; Pulse 102; Resp 19 S; Pulse Ox 100% on R/A; ca1 15:54 BP 132 / 68; Pulse 101; Resp 27; Temp 97.7(TE); Pulse Ox 100% on R/A; ca1 12:21 Body Mass Index 31.57 (99.79 kg, 177.80 cm) hb MDM: 12:25 Patient medically screened. ma2 14:28 Differential diagnosis: Nonspecific abd pain, gastritis, viral gastroenteritis, ma2 gastroenteritis, dka. Data reviewed: vital signs, nurses notes. Counseling: I had a detailed discussion with the patient and/or guardian regarding: the historical points, exam findings, and any diagnostic results supporting the discharge/admit diagnosis, the presence of at least one elevated blood pressure reading (>120/80) during this emergency department visit, the need for further work-up and treatment in the hospital. Response to treatment: the patient's symptoms have markedly improved after treatment. 09/14 12:25 Order name: Glucose; Complete Time: 14:14 09/14 12:37 Order name: Glucose, Ancillary Testing [facility] 09/14 12:37 Order name: Acetone, Serum; Complete Time: 14:14 [facility] 09/14 12:37 Order name: Amylase, Serum; Complete Time: 14:14 [facility] 09/14 12:37 Order name: Basic Metabolic Panel; Complete Time: 14:14 [facility] 09/14 12:37 Order name: CBC with Diff; Complete Time: 13:46 [facility] 09/14 12:37 Order name: Hepatic Function; Complete Time: 14:14 [facility] 09/14 12:37 Order name: Lipase; Complete Time: 14:14 [facility] 09/14 12:37 Order name: Phosphorus; Complete Time: 14:14 [facility] 09/14 13:41 Order name: Urine Dipstick--Ancillary (enter results) 09/14 16:10 Order name: Glucose, Ancillary Testing [facility] 09/14 12:37 Order name: EKG; Complete Time: 12:38 [facility] 09/14 12:37 Order name: Cardiac monitoring; Complete Time: 12:40 [facility] 09/14 12:37 Order name: EKG - Nurse/Tech; Complete Time: 12:40 [facility] 09/14 12:37 Order name: IV Saline Lock; Complete Time: 12:40 [facility] 09/14 12:37 Order name: NPO; Complete Time: 12:41 [facility] 09/14 12:37 Order name: O2 Per Protocol; Complete Time: 12:40 [facility] 09/14 12:37 Order name: O2 Sat Monitoring; Complete Time: 12:40 ma2 Administered Medications: 12:41 Drug: NS 0.9% 3000 ml Route: IV; Rate: 1000 ml; Site: right antecubital; ca1 14:39 Follow up: Urine output 500 ml; Response: No adverse reaction; IV Status: Completed ca1 infusion 13:35 Drug: Zofran 4 mg Route: IVP; Site: right antecubital; ca1 14:33 Follow up: Response: No adverse reaction; Nausea is decreased ca1 13:37 Drug: morphine 4 mg {Note: RASS -0.} Route: IVP; Site: right antecubital; ca1 14:33 Follow up: Response: No adverse reaction; Pain is decreased; RASS: Alert and Calm (0) ca1 14:52 Drug: Insulin Drip - (Insulin Regular Human 100 units, NS 0.9% 100 ml) {Co-Signature: ca1 iw (Mariana Leary RN).} Route: IV; Rate: calculated rate; Site: right antecubital; 14:53 Follow up: IV Status: Infusion continued upon admission ca1 Point of Care Testing: Blood Glucose: 12:23 Blood Glucose: High (>450 mg/dL); hb Ranges: Critical Glucose Levels:Adult <50 mg/dl or >400 mg/dl <40 mg/dl or >180 mg/dl Disposition: 09/14/19 14:30 Hospitalization ordered by Dominick Rojas for Inpatient Admission. Preliminary diagnosis is Diabetes mellitus due to underlying condition with ketoacidosis. - Bed requested for Intensive Care Unit. - Status is Inpatient Admission. ca1 - Condition is Serious. - Problem is new. - Symptoms are unchanged. Critical care time excluding procedures: 14:28 Critical care time: Bedside Care: 20 minutes, Consultation: 10 minutes, Family pr2 Intervention: 5 minutes. Total time: 35 minutes Signatures: Dispatcher [employer] Stacia Marion Heather, RN RN Vanita Vera MD MD ma2 Acob, Cheryl, RN RN ca1 Mariana Leary RN iw Corrections: (The following items were deleted from the chart) 15:45 14:30 Hospitalization Ordered by Dominick Rojas for Inpatient Admission. Preliminary bd diagnosis is Diabetes mellitus due to underlying condition with ketoacidosis. Bed requested for Intensive Care Unit. Status is Inpatient Admission. Condition is Serious. Problem is new. Symptoms are unchanged. ma2 16:18 15:45 09/14/2019 14:30 Hospitalization Ordered by Dominick Rojas for Inpatient ca1 Admission. Preliminary diagnosis is Diabetes mellitus due to underlying condition with ketoacidosis. Bed requested for Intensive Care Unit. Status is Inpatient Admission. Condition is Serious. Problem is new. Symptoms are unchanged. bd
[2019-09-14] MEDS ORDERED: D50W 25 GM/50 ML SYRINGE IV PRN (14:33)
[2019-09-14] MEDS ORDERED: GLUCAGON 1 MG/VIAL IM PRN (14:33)
[2019-09-14] MEDS ORDERED: INSULIN -REGULAR HUMAN 100 UNIT in NA CHLORIDE 0.9% 100 ML IV SCH (14:45)
--- NOTE | 2019-09-14 15:25 | P.HP ---
Certification for Inpatient Patient admitted to: Inpatient With expected LOS: >2 Midnights Practitioner: I am a practitioner with admitting privileges, knowledge of patient current condition, hospital course, and medical plan of care. Services: Services provided to patient in accordance with Admission requirements found in Title 42 Section 412.3 of the Code of Federal Regulations Patient History Date of Service: 09/14/19 Reason for admission: Generalize weakness, abdominal pain History of Present Illness: 29-year-old gentleman with a history of insulin-dependent diabetes presented to the emergency department with a complaint of generalized weakness, nausea and vomiting, and abdominal pain of onset yesterday. Patient reports polydipsia and polyuria. Blood work in the ED is demonstrating DKA, with severe metabolic acidosis, hyponatremia, moderate serum acetone and elevated blood glucose. Patient was in the ED 3 days ago for similar complaint. He was supposed to be admitted for DKA and alcohol abuse but patient signed out against medical advice from the ED. He stated he has been prescribed Lantus insulin but has not filled it yet and at the moment has been relying on farxiga for blood glucose control. Patient is admitted for further management of DKA. Allergies No Known Allergies Allergy (Verified 10/01/18 18:10) Home Medications: Atorvastatin Calcium [Lipitor] 40 mg PO BEDTIME 10/02/18 Metformin ER [Glucophage ER*] 1,000 mg PO BID 10/02/18 lisinopriL [Lisinopril] 40 mg PO DAILY 10/02/18 Dapagliflozin Propanediol [Farxiga] 10 mg PO DAILY 09/14/19 - Past Medical/Surgical History -: DM2 -: HTN -: HLD - Family History Father -: Other (see notes) (Hypercholesteremia) - Social History Alcohol use: Yes Caffeine use: Yes Review of Systems Other: Patient denied any diarrhea, denied any chest pain, endorsed shortness of breath , denied any fever or chills. Except as documented all other systems reviewed and negative. Physical Examination - Physical Exam General: Alert, Oriented x3, Moderate distress HEENT: PERRLA, Mucous membr. moist/pink, EOMI, Sclerae nonicteric Neck: Supple, JVD not distended Respiratory: Clear to auscultation bilaterally, Normal air movement Cardiovascular: No edema, Normal pulses, Other (Tachycardic) Capillary refill: <2 Seconds Gastrointestinal: Normal bowel sounds, Soft and benign, Non-distended, Tenderness (Moderate abdominal tenderness on deep palpation) Musculoskeletal: No swelling, No erythema Integumentary: No rashes Neurological: Normal speech, Normal strength at 5/5 x4 extr, Cranial nerves 3- 12 intact - Studies Laboratory Data (last 24 hrs) 09/14/19 12:45: WBC 7.9 D, Hgb 18.5 H, Hct 56.1 H D, Plt Count 356 D 09/14/19 12:45: Sodium 120 L, Potassium 4.5, BUN 28 H, Creatinine 1.84 H D, Glucose 509 H*, Phosphorus 5.4 H, Total Bilirubin 0.6, AST 41 H, ALT 66, Alkaline Phosphatase 85, Amylase 237 H*, Lipase 236 09/14/19 12:45: Glucose 524 H* Assessment and Plan - Problems (Diagnosis) (1) DKA (diabetic ketoacidoses) Current Visit: No Status: Acute Qualifiers: Diabetes mellitus type: type 2 Diabetes mellitus complication detail: without coma Qualified Code(s): E11.10 - Type 2 diabetes mellitus with ketoacidosis without coma (2) Diabetes mellitus Current Visit: No Status: Chronic Qualifiers: Diabetes mellitus type: type 2 Diabetes mellitus forger helper insulin use: without forger helper use Diabetes mellitus complication status: with ketoacidosis Diabetes mellitus complication detail: without coma Qualified Code(s): E11.10 - Type 2 diabetes mellitus with ketoacidosis without coma (3) Acute renal failure Current Visit: Yes Status: Acute - Plan DKA likely secondary to insulin noncompliance. Admit to ICU. DKA protocol initiated with aggressive IV NS, insulin drip Monitor BMP and ABG per DKA protocol. IV bicarbonate as needed for severe acidosis. - Advance Directives Does patient have a Living Will: No Does patient have a Durable POA for Healthcare: No Time Spent Managing Pts Care (In Minutes): 55 (Critical care time is 46 minutes. )
[2019-09-14] MEDS ORDERED: NA CHLORIDE 0.9% 1,000 ML IV ONE (16:03)
--- NOTE | 2019-09-14 16:03 | EKG ---
Test Date: 2019-09-14 Test Time: 12:36:45 Crumb Packer: MARTHA MEASUREMENT RESULTS: Intervals: Rate: 124 RI: 160 QRSD: 96 QT: 330 QTc: 474 [place]: P: 75 RI: 160 QRS: 90 T: 77 INTERPRETIVE STATEMENTS: Sinus tachycardia Vertical axis Borderline ECG Compared to ECG 10/01/2018 12:38:27 Sinus rhythm no longer present Electronically Signed On 09-14-19 16:03:02 SHANK TURNER by Andrew Wodo
[2019-09-14] MEDS: NA CHLORIDE 0.9% 1,000 ML IV SCH ×2 (16:37→22:43)
[2019-09-14] MEDS: CEFTRIAXONE/SWI 1gm 1 GM/10 ML SYR IVP SCH (16:38)
[2019-09-14 16:52] LABS: Arterial Blood Carboxyhemoglob 0.9 % (0-1.5); Blood Gas Oxyhemoglobin 96.1 % (94-97); Blood O2 Saturation 98.1 % (92-98.5)
[2019-09-14 17:33] LABS: Potassium 4.9 mmol/L (3.5-5.1)
[2019-09-14] MEDS: D5.45NS W/KCL 20MEQ 1,000 ML IV SCH ×2 (19:50→22:43)
[2019-09-14] MEDS ORDERED: MAGNES/ALUMIN/SIMET 30ML UCUP PO PRN (21:09)
[2019-09-14] MEDS ORDERED: ONDANSETRON 4 MG/2 ML VIAL IV PRN (21:09)
[2019-09-14 23:04] LABS: Arterial Blood Carboxyhemoglob 1.5 % (0-1.5); Blood Gas Oxyhemoglobin 95.7 % (94-97); Blood O2 Saturation 98.2 % (92-98.5)
[2019-09-15 01:51] LABS: Potassium 4.9 mmol/L (3.5-5.1)
[2019-09-15] MEDS: D5.45NS W/KCL 20MEQ 1,000 ML IV SCH ×3 (04:37→19:50)
[2019-09-15 05:12] LABS: Absolute Lymphocytes (CBC) 1.2 K/uL (0.7-4.9); Basophils % 0.4 % (0-1.3); Hematocrit 46.1 % (39.6-49.0); Lymphocytes % 23.8 % (15.3-44.8); RBC Red Blood Cell Count 4.78 M/uL (4.33-5.43)
[2019-09-15] MEDS: NA CHLORIDE 0.9% 1,000 ML IV SCH ×3 (05:23→18:43)
[2019-09-15 05:38] LABS: BUN Blood Urea Nitrogen 18 mg/dL (7-18); Glucose Level 164 mg/dL (74-106); Magnesium 2.4 mg/dL (1.8-2.4); Phosphorus 1.1 mg/dL (2.5-4.9); Potassium 4.4 mmol/L (3.5-5.1); Sodium Level 132 mmol/L (136-145)
[2019-09-15 05:51] LABS: Bicarbonate 13 mmol/L (21-32)
[2019-09-15 06:03] LABS: Blood Morphology Comment NOT SEEN (NOT SEEN); Platelet Estimate ADEQ
[2019-09-15 06:19] LABS: Arterial Blood Carboxyhemoglob 1.6 % (0-1.5); Blood Gas Oxyhemoglobin 95.8 % (94-97); Blood O2 Saturation 98.4 % (92-98.5)
[2019-09-15] MEDS: CEFTRIAXONE/SWI 1gm 1 GM/10 ML SYR IVP SCH (08:41)
[2019-09-15] MEDS ORDERED: SODIUM PHOSPHATE 15 MM in NA CHLORIDE 0.9% 250 ML IV ONE (09:00)
--- NOTE | 2019-09-15 12:49 | P.PN ---
Subjective Date of Service: 09/15/19 Chief Complaint: Generalize weakness, abdominal pain Patient states he feels much better. His blood sugar has significantly improved. Shortness of breath has resolved. Anion gap has improved. Physical Examination - Vital Signs Temperature: 97.8 F Blood Pressure: 108/65 Pulse: 67 Respirations: 18 Pulse Ox (%): 100 - Physical Exam General: Alert, In no apparent distress, Oriented x3 HEENT: Mucous membr. moist/pink, Sclerae nonicteric Neck: Supple, JVD not distended Respiratory: Clear to auscultation bilaterally, Normal air movement Cardiovascular: No edema, Regular rate/rhythm, Normal S1 S2 Capillary refill: <2 Seconds Gastrointestinal: Normal bowel sounds, Soft and benign, Non-distended, No tenderness Musculoskeletal: No swelling, No erythema Integumentary: No rashes, No erythema Neurological: Normal speech, Normal strength at 5/5 x4 extr - Studies Laboratory Data (last 24 hrs) 09/14/19 12:45: WBC 7.9 D, Hgb 18.5 H, Hct 56.1 H D, Plt Count 356 D 09/14/19 12:45: Sodium 120 L, Potassium 4.5, BUN 28 H, Creatinine 1.84 H D, Glucose 509 H*, Phosphorus 5.4 H, Total Bilirubin 0.6, AST 41 H, ALT 66, Alkaline Phosphatase 85, Amylase 237 H*, Lipase 236 09/14/19 12:45: Glucose 524 H* Assessment And Plan - Current Problems (Diagnosis) (1) DKA (diabetic ketoacidoses) Current Visit: No Status: Acute Qualifiers: Diabetes mellitus type: type 2 Diabetes mellitus complication detail: without coma Qualified Code(s): E11.10 - Type 2 diabetes mellitus with ketoacidosis without coma (2) Diabetes mellitus Current Visit: No Status: Chronic Qualifiers: Diabetes mellitus type: type 2 Diabetes mellitus [facility] insulin use: without [facility] use Diabetes mellitus complication status: with ketoacidosis Diabetes mellitus complication detail: without coma Qualified Code(s): E11.10 - Type 2 diabetes mellitus with ketoacidosis without coma (3) Acute renal failure Current Visit: Yes Status: Acute - Plan Continue IV hydration and insulin drip Continue DKA protocol Transition to subcutaneous insulin once anion gap closes and check a hemoglobin A1c.
[2019-09-15 13:20] LABS: BUN Blood Urea Nitrogen 13 mg/dL (7-18); Glucose Level 148 mg/dL (74-106); Sodium Level 130 mmol/L (136-145)
[2019-09-15 13:21] LABS: Bicarbonate 14 mmol/L (21-32)
[2019-09-15 17:59] LABS: Potassium 3.8 mmol/L (3.5-5.1)
[2019-09-15] MEDS ORDERED: POTASSIUM CL SA 10 MEQ TAB PO ONE (19:40)
[2019-09-15] MEDS ORDERED: POTASSIUM 25 MEQ EFFERV TAB PO ONE (21:00)
[2019-09-15 21:38] VITALS: O2SAT 99
[2019-09-15 22:10] LABS: BUN Blood Urea Nitrogen 10 mg/dL (7-18); Bicarbonate 15 mmol/L (21-32); Glucose Level 144 mg/dL (74-106); Sodium Level 131 mmol/L (136-145)
[2019-09-16] MEDS: NA CHLORIDE 0.9% 1,000 ML IV SCH ×3 (01:23→11:55)
[2019-09-16 01:57] LABS: BUN Blood Urea Nitrogen 9 mg/dL (7-18); Bicarbonate 16 mmol/L (21-32); Glucose Level 110 mg/dL (74-106); Potassium 3.6 mmol/L (3.5-5.1); Sodium Level 131 mmol/L (136-145)
[2019-09-16] MEDS: D5.45NS W/KCL 20MEQ 1,000 ML IV SCH ×3 (03:08→08:05)
[2019-09-16 05:13] LABS: Absolute Lymphocytes (CBC) 1.5 K/uL (0.7-4.9); Basophils % 0.5 % (0-1.3); Lymphocytes % 36.2 % (15.3-44.8); MPV 7.9 fL (7.6-11.3)
[2019-09-16 05:29] LABS: BUN Blood Urea Nitrogen 8 mg/dL (7-18); Bicarbonate 18 mmol/L (21-32); Glucose Level 107 mg/dL (74-106); Magnesium 2.4 mg/dL (1.8-2.4); Phosphorus 1.1 mg/dL (2.5-4.9); Potassium 3.2 mmol/L (3.5-5.1); Sodium Level 133 mmol/L (136-145)
[2019-09-16] MEDS ORDERED: POTASSIUM PHOS IN 0.9 % NACL 15 MMOL/250 ML BAG IV ONE (07:43)
[2019-09-16] MEDS: CEFTRIAXONE/SWI 1gm 1 GM/10 ML SYR IVP SCH (08:03)
[2019-09-16] MEDS: INSULIN GLARGINE 100 UNITS/ML SQ SCH (09:10)
[2019-09-16 11:41] LABS: BUN Blood Urea Nitrogen 7 mg/dL (7-18); Bicarbonate 15 mmol/L (21-32); Glucose Level 211 mg/dL (74-106); Potassium 3.3 mmol/L (3.5-5.1); Sodium Level 130 mmol/L (136-145)
[2019-09-16] MEDS: INSULIN -REGULAR HUMAN 50 UNIT/0.5 ML ML SQ SCH ×3 (11:55→20:03)
--- NOTE | 2019-09-16 12:08 | P.PN ---
Subjective Date of Service: 09/16/19 Chief Complaint: Generalize weakness, abdominal pain Patient has no complaint. He states he feels much better. He denies any nausea or abdominal pain. DKA has resolved. Physical Examination - Vital Signs Temperature: 97.3 F Blood Pressure: 129/97 Pulse: 69 Respirations: 19 Pulse Ox (%): 100 - Physical Exam General: Alert, In no apparent distress, Oriented x3 HEENT: Mucous membr. moist/pink, Sclerae nonicteric Neck: Supple, JVD not distended Respiratory: Clear to auscultation bilaterally, Normal air movement Cardiovascular: No edema, Regular rate/rhythm, Normal S1 S2 Capillary refill: <2 Seconds Gastrointestinal: Normal bowel sounds, Soft and benign, Non-distended, No tenderness Musculoskeletal: No swelling, No erythema Integumentary: No rashes Neurological: Normal speech, Normal strength at 5/5 x4 extr Assessment And Plan - Current Problems (Diagnosis) (1) DKA (diabetic ketoacidoses) Current Visit: No Status: Acute Qualifiers: Diabetes mellitus type: type 2 Diabetes mellitus complication detail: without coma Qualified Code(s): E11.10 - Type 2 diabetes mellitus with ketoacidosis without coma (2) Diabetes mellitus Current Visit: No Status: Chronic Qualifiers: Diabetes mellitus type: type 2 Diabetes mellitus terminal operations manager insulin use: without [facility] use Diabetes mellitus complication status: with ketoacidosis Diabetes mellitus complication detail: without coma Qualified Code(s): E11.10 - Type 2 diabetes mellitus with ketoacidosis without coma (3) Acute renal failure Current Visit: Yes Status: Acute - Plan DKA resolved. Transition insulin drip to Lantus insulin and insulin sliding scale. Continue IV hydration. Transfer to the medical floor. Titrate long-acting insulin. Recheck BMP to make sure bicarb is stable. Possible discharge in a.m.
[2019-09-16 18:29] LABS: BUN Blood Urea Nitrogen 9 mg/dL (7-18); Glucose Level 149 mg/dL (74-106); Potassium 3.8 mmol/L (3.5-5.1); Sodium Level 133 mmol/L (136-145)
[2019-09-16] MEDS ORDERED: POTASSIUM 25 MEQ EFFERV TAB PO ONE (19:22)
[2019-09-16 19:46] LABS: Bicarbonate 15 mmol/L (21-32)
[2019-09-16] MEDS ORDERED: POTASS/SODIUM PHOSPHATE 1 PKT POWD.PACK PO SCH (20:00)
[2019-09-16] MEDS: POTASS/SODIUM PHOSPHATE 1 PKT POWD.PACK PO SCH ×3 (20:04→22:11)
[2019-09-16] MEDS: D5 0.9 NS 1,000 ML IV SCH (22:11)
[2019-09-17 05:03] LABS: Absolute Lymphocytes (CBC) 1.5 K/uL (0.7-4.9); Basophils % 0.5 % (0-1.3); Hematocrit 42.2 % (39.6-49.0); MPV 8.3 fL (7.6-11.3); RBC Red Blood Cell Count 4.51 M/uL (4.33-5.43)
[2019-09-17 06:10] LABS: BUN Blood Urea Nitrogen 9 mg/dL (7-18); Bicarbonate 22 mmol/L (21-32); Glucose Level 124 mg/dL (74-106); Magnesium 2.5 mg/dL (1.8-2.4); Phosphorus 1.9 mg/dL (2.5-4.9); Potassium 3.2 mmol/L (3.5-5.1); Sodium Level 136 mmol/L (136-145)
[2019-09-17 06:17] VITALS: BMI 27.5
[2019-09-17] MEDS: INSULIN -REGULAR HUMAN 50 UNIT/0.5 ML ML SQ SCH ×4 (07:30→20:46)
[2019-09-17] MEDS ORDERED: POTASSIUM PHOS IN 0.9 % NACL 15 MMOL/250 ML BAG IV ONE ×2 (08:06→22:25)
[2019-09-17] MEDS: D5 0.9 NS 1,000 ML IV SCH (08:56)
[2019-09-17] MEDS: INSULIN GLARGINE 100 UNITS/ML SQ SCH (08:58)
[2019-09-17] MEDS: CEFTRIAXONE/SWI 1gm 1 GM/10 ML SYR IVP SCH (08:59)
--- NOTE | 2019-09-17 11:14 | P.PN ---
Subjective Date of Service: 09/17/19 Chief Complaint: Generalize weakness, abdominal pain Subjective: Improving (Abdominal pain resolved No nausea vomiting) Review of Systems 10-point ROS is otherwise unremarkable Physical Examination - Vital Signs Temperature: 97.6 F Blood Pressure: 111/86 Pulse: 61 Respirations: 18 Pulse Ox (%): 99 - Physical Exam General: Alert, In no apparent distress HEENT: Atraumatic, Normocephalic Neck: Supple Respiratory: Clear to auscultation bilaterally, Normal air movement Cardiovascular: No edema, Regular rate/rhythm Capillary refill: <2 Seconds Gastrointestinal: Soft and benign Musculoskeletal: No clubbing, No swelling Integumentary: No rashes Neurological: Normal gait, Normal speech Lymphatics: No axilla or inguinal lymphadenopathy External genitalia: Deferred Rectal: Deferred Assessment & Plan - Problems (Diagnosis) (1) DKA (diabetic ketoacidoses) Current Visit: No Status: Acute Qualifiers: Diabetes mellitus type: type 2 Diabetes mellitus complication detail: without coma Qualified Code(s): E11.10 - Type 2 diabetes mellitus with ketoacidosis without coma (2) Metabolic acidosis Current Visit: No Status: Acute (3) HLD (hyperlipidemia) Current Visit: No Status: Chronic Qualifiers: Hyperlipidemia type: unspecified Qualified Code(s): E78.5 - Hyperlipidemia , unspecified (4) Hypertension Current Visit: No Status: Chronic Plan: DKA Metabolic acidosis Hypo kalemia Hypophosphatemia Dehydration Plan on insulin drip Serial BMP monitoring Once again up close will change insulin to basal and sliding scale Correct electrolytes Hydration Monitor closely Possible Dc in a.m. Qualifiers: Hypertension type: essential hypertension Qualified Code(s): I10 - Essential (primary) hypertension Time Spent Managing Pts Care (In Minutes): 45
[2019-09-17 12:43] LABS: BUN Blood Urea Nitrogen 8 mg/dL (7-18); Bicarbonate 24 mmol/L (21-32); Glucose Level 244 mg/dL (74-106); Potassium 3.4 mmol/L (3.5-5.1); Sodium Level 135 mmol/L (136-145)
[2019-09-17] MEDS ORDERED: GLUCAGON 1 MG/VIAL IM PRN (13:29)
[2019-09-17] MEDS ORDERED: D50W 25 GM/50 ML SYRINGE IV PRN (13:29)
[2019-09-17] MEDS ORDERED: POTASSIUM CL SA 10 MEQ TAB PO ONE (13:47)
[2019-09-17 19:13] LABS: BUN Blood Urea Nitrogen 10 mg/dL (7-18); Bicarbonate 22 mmol/L (21-32); Glucose Level 314 mg/dL (74-106); Phosphorus 1.8 mg/dL (2.5-4.9); Potassium 3.9 mmol/L (3.5-5.1); Sodium Level 134 mmol/L (136-145)
[2019-09-17] MEDS ORDERED: ATORVASTATIN 40 MG TAB PO SCH (21:00)
[2019-09-17] MEDS: lisinopriL 20 MG TAB PO SCH (21:02)
[2019-09-17] MEDS ORDERED: POTASSIUM PHOS 20 MEQ in NA CHLORIDE 0.9% 250 ML IV ONE (21:42)
[2019-09-18 06:13] LABS: Absolute Lymphocytes (CBC) 1.6 K/uL (0.7-4.9); Basophils % 0.6 % (0-1.3); Hematocrit 40.8 % (39.6-49.0); Lymphocytes % 47.1 % (15.3-44.8); MPV 7.9 fL (7.6-11.3); RBC Red Blood Cell Count 4.34 M/uL (4.33-5.43)
[2019-09-18 06:20] LABS: BUN Blood Urea Nitrogen 8 mg/dL (7-18); Bicarbonate 27 mmol/L (21-32); Glucose Level 191 mg/dL (74-106); Potassium 3.4 mmol/L (3.5-5.1); Sodium Level 138 mmol/L (136-145)
[2019-09-18 08:11] LABS: Platelet Estimate ADEQ
[2019-09-18 08:12] LABS: Blood Morphology Comment NOT SEEN (NOT SEEN)
[2019-09-18] MEDS: INSULIN GLARGINE 100 UNITS/ML SQ SCH (08:40)
[2019-09-18] MEDS: INSULIN -REGULAR HUMAN 50 UNIT/0.5 ML ML SQ SCH (08:41)
[2019-09-18] MEDS: lisinopriL 20 MG TAB PO SCH (08:41)
[2019-09-18] MEDS: CEFTRIAXONE/SWI 1gm 1 GM/10 ML SYR IVP SCH (08:42)
[2019-09-18] MEDS ORDERED: POTASSIUM CL SA 10 MEQ TAB PO ONE (09:00)
[2019-09-18 09:11] VITALS: BP 122/80; TEMP 97.3
--- NOTE | 2019-09-18 09:44 | P.DS ---
Admission Date: 09/14/19 Discharge Date: 09/18/19 Disposition: ROUTINE DISCHARGE Discharge Condition: GOOD Reason for Admission: Generalize weakness, abdominal pain - Problems (1) DKA (diabetic ketoacidoses) Status: Acute Qualifiers: Diabetes mellitus type: type 2 Diabetes mellitus complication detail: without coma Qualified Code(s): E11.10 - Type 2 diabetes mellitus with ketoacidosis without coma (2) Metabolic acidosis Status: Acute (3) HLD (hyperlipidemia) Status: Chronic Qualifiers: Hyperlipidemia type: unspecified Qualified Code(s): E78.5 - Hyperlipidemia , unspecified (4) Hypertension Status: Chronic Qualifiers: Hypertension type: essential hypertension Qualified Code(s): I10 - Essential (primary) hypertension Brief History of Present Illness: 29-year-old gentleman with a history of insulin-dependent diabetes presented to the emergency department with a complaint of generalized weakness, nausea and vomiting, and abdominal pain of onset yesterday. Patient reports polydipsia and polyuria. Blood work in the ED is demonstrating DKA, with severe metabolic acidosis, hyponatremia, moderate serum acetone and elevated blood glucose. Patient was in the ED 3 days ago for similar complaint. He was supposed to be admitted for DKA and alcohol abuse but patient signed out against medical advice from the ED. He stated he has been prescribed Lantus insulin but has not filled it yet and at the moment has been relying on farxiga for blood glucose control. Patient is admitted for further management of DKA. Hospital Course: The patient was admitted to the ICU when was start on insulin drip. Had aggressive hydration. Electrolytes monitored and replaced. Once anion gap was closed he was started on basal and sliding scale insulin. He has responded well to the treatment and wanted to go home. He is being discharged home today in a stable condition with advice to follow up with PCP in 1 week and also with it generalist as outpatient. Vital Signs/Physical Exam: Temp Pulse Resp BP Pulse Ox 97.3 F 72 15 122/80 100 09/18/19 08:00 09/18/19 08:00 09/18/19 08:00 09/18/19 08:00 09/18/19 08:00 General: Alert, In no apparent distress HEENT: Atraumatic, Normocephalic Neck: Supple Respiratory: Clear to auscultation bilaterally Cardiovascular: No edema, Normal pulses, Regular rate/rhythm Capillary refill: <2 Seconds Gastrointestinal: Soft and benign, W/out hepatosplenomegaly Musculoskeletal: No clubbing, No swelling Integumentary: No rashes Neurological: Normal speech, Normal strength at 5/5 x4 extr External genitalia: Deferred Rectal: Deferred Laboratory Data at Discharge: WBC 3.4 K/uL (4.3-10.9) L 09/18/19 05:48 Hgb 14.1 g/dL (13.6-17.9) 09/18/19 05:48 Hct 40.8 % (39.6-49.0) 09/18/19 05:48 Plt Count 185 K/uL (152-406) 09/18/19 05:48 Sodium 138 mmol/L (136-145) 09/18/19 05:48 Potassium 3.4 mmol/L (3.5-5.1) L 09/18/19 05:48 BUN 8 mg/dL (7-18) 09/18/19 05:48 Creatinine 0.77 mg/dL (0.55-1.3) 09/18/19 05:48 Glucose 191 mg/dL (74-106) H 09/18/19 05:48 Phosphorus 3.5 mg/dL (2.5-4.9) D 09/18/19 05:48 Magnesium 2.5 mg/dL (1.8-2.4) H 09/17/19 04:45 Total Bilirubin 0.6 mg/dL (0.2-1.0) 09/14/19 12:45 AST 41 U/L (15-37) H 09/14/19 12:45 ALT 66 U/L (12-78) 09/14/19 12:45 Alkaline Phosphatase 85 U/L (45-117) 09/14/19 12:45 Amylase 237 U/L (25-115) H* 09/14/19 12:45 Lipase 236 U/L (73-393) 09/14/19 12:45 Home Medications: Atorvastatin Calcium [Lipitor] 40 mg PO BEDTIME 10/02/18 Metformin ER [Glucophage ER*] 1,000 mg PO BID 10/02/18 lisinopriL [Lisinopril] 40 mg PO DAILY 10/02/18 Dapagliflozin Propanediol [Farxiga] 10 mg PO DAILY 09/14/19 Insulin Glargine Human [Lantus*] 20 units SQ DAILY WITH BREAKFAST #1 vial New Medications: Insulin Glargine Human [Lantus*] 20 units SQ DAILY WITH BREAKFAST #1 vial Diet: ADA Activity: Ad tracy Time spent managing pt's care (in minutes): 39
== END 2019-09-18 10:48 | disposition home or self-care (01) | DRG 638 ==
LOC: ER 12:09 → ERHOLD 15:34 → 3RD-ICU 15:54 → 2ND 09-17 15:20
PROVIDERS: ADMIT Internal Medicine; ATTEND Family Medicine
DX: E11.10 Type 2 diabetes mellitus with ketoacidosis without coma (principal); E87.2 Acidosis; N17.9 Acute kidney failure, unspecified; E87.1 Hypo-osmolality and hyponatremia; E78.5 Hyperlipidemia, unspecified; I10 Essential (primary) hypertension; E87.6 Hypokalemia; E83.39 Other disorders of phosphorus metabolism; E86.0 Dehydration; Z79.4 Long term (current) use of insulin
CPT/HCPCS: 36415; 80048; 80076; 81003; 82010; 82150; 82805; 82947; 83690; 83735; 84100; 85025; 93005; 96361; 96374; 96375; 99285; J0696; J1815; J2405; J7030; J7042

== ENCOUNTER 2019-10-19 13:16 | Inpatient (IN) | payer OTHER, SELFPAY ==
[2019-10-19] MEDS ORDERED: ONDANSETRON 4 MG/2 ML VIAL ONE ×2 (14:19→21:09)
[2019-10-19] MEDS ORDERED: NA CHLORIDE 0.9% 1,000 ML ONE ×4 (14:19→20:04)
[2019-10-19] MEDS ORDERED: MORPHINE 4 MG/ML SYR ONE (14:26)
[2019-10-19] MEDS ORDERED: FAMOTIDINE 20 MG/2 ML VIAL IV ONE (14:26)
[2019-10-19 14:30] LABS: Absolute Lymphocytes (CBC) 0.7 K/uL (0.7-4.9); Basophils % 0.8 % (0-1.3); Hematocrit 50.3 % (39.6-49.0); Lymphocytes % 8.4 % (15.3-44.8); MPV 8.9 fL (7.6-11.3); RBC Red Blood Cell Count 5.28 M/uL (4.33-5.43)
[2019-10-19] MEDS ORDERED: MAGNE/ALUM HYDROXD 30 ML UCUP ONE ×2 (14:39→16:35)
[2019-10-19] MEDS ORDERED: LIDOCAINE VISCOUS 2% SOLN 15 ML UDC ONE ×2 (14:40→16:36)
[2019-10-19 14:56] LABS: Protime INR 0.89
[2019-10-19 14:58] LABS: Albumin 4.4 g/dL (3.4-5.0); Bilirubin Direct 0.2 mg/dL (0-0.2); Potassium 3.3 mmol/L (3.5-5.1); Protein, Total 8.5 g/dL (6.4-8.2)
[2019-10-19 15:18] LABS: Magnesium 3.1 mg/dL (1.8-2.4); NT PRO-BNP 119 pg/mL (<125); Troponin (Emerg Dept Use Only) < 0.02 ng/mL (0.0-0.045)
[2019-10-19] MEDS ORDERED: METOCLOPRAMIDE 10 MG/2mL INJ ONE (15:19)
[2019-10-19] MEDS ORDERED: INSULIN -REGULAR HUMAN 50 UNIT/0.5 ML ML ONE ×2 (15:20→18:05)
--- NOTE | 2019-10-19 15:22 | RAD REPORT ---
EXAM DESCRIPTION: RAD - Chest Single View - 10/19/2019 2:53 pm CLINICAL HISTORY: Cough;Chest pain Chest pain. COMPARISON: Chest Single View dated 10/01/2018 FINDINGS: Portable technique limits examination quality. The lungs are grossly clear. The heart is normal in size. No displaced fractures. IMPRESSION: No acute intrathoracic process suspected.
[2019-10-19 15:39] LABS: Urine Blood NEGATIVE (NEG); Urine Glucose 2+ (NEG); Urine Protein NEGATIVE (NEG); Urine Specific Gravity 1.015 (1.005-1.030); Urine pH 5.5 (5.0-7.0)
[2019-10-19 15:42] LABS: Phosphorus 4.9 mg/dL (2.5-4.9); Uric Acid 12.4 mg/dL (3.5-7.2)
--- NOTE | 2019-10-19 15:46 | RAD REPORT ---
EXAM DESCRIPTION: CT - Chest Abd Pelvis Wo Con - 10/19/2019 3:30 pm CLINICAL HISTORY: Chest and abdomen pain. Abdominal distention;Dyspnea COMPARISON: No comparisons TECHNIQUE: Limited noncontrast study was performed. All CT scans are performed using dose optimization technique as appropriate and may include automated exposure control or mA/KV adjustment according to patient size. FINDINGS: The lungs are clear.Thickening of the esophagus is seen.No pleural or pericardial effusion .No intrathoracic adenopathy. The liver, spleen, pancreas, adrenal glands and kidneys are within normal limits. No bowel obstruction, free air, free fluid or abscess. Normal appendix. No pathologic lymphadenopath y in the abdomen or pelvis. No worrisome osseous finding. IMPRESSION: Esophageal thickening is present likely representing esophagitis.Otherwise, no acute fin ding demonstrated.
[2019-10-19] MEDS ORDERED: KCL 20 MEQ/100 mL IVPB 20 MEQ/100 ML BAG IV ONE (15:50)
[2019-10-19 16:12] LABS: Arterial Blood Carboxyhemoglob 2.1 % (0-1.5); Blood Gas Oxyhemoglobin 94.8 % (94-97); Blood O2 Saturation 98.1 % (92-98.5)
--- NOTE | 2019-10-19 16:29 | ER ---
Nurse's Notes [facility] Name: Dudley Castellano Age: 29 yrs Sex: Male : 1990 Arrival Date: 10/19/2019 Time: 13:18 Bed 6 Private MD: Diagnosis: Vomiting;Volume depletion;Type 2 diabetes mellitus;Hypo-osmolality and hyponatremia;Hypokalemia;Unspecified kidney failure-prerenal;Hiccough;Esophagitis Presentation: 10/18 13:23 Chief complaint: Patient states: Started hiccuping 2 days ago and then started vomiting jl7 yesterday, now throat is burning from throwing up so much. Hiccups wont go away, denies fever, denies cough. Coronavirus screen: Patient denies fever greater than 100.4F, cough, shortness of breath, or difficulty breathing. Proceed with normal triage process. Ebola Screen: No symptoms or risks identified at this time. Initial Sepsis Screen: Does the patient meet any 2 criteria? No. Patient's initial sepsis screen is negative. Does the patient have a suspected source of infection? No. Patient's initial sepsis screen is negative. Risk Assessment: Do you want to hurt yourself or someone else? Patient reports no desire to harm self or others. Onset of symptoms was October 17, 2019. 13:23 Method Of Arrival: Ambulatory jl7 13:23 Acuity: DELMER 3 jl7 15:02 Acuity: DELMER 2 iw Triage Assessment: 13:27 General: Appears in no apparent distress. uncomfortable, ill, Behavior is calm, jl7 cooperative, appropriate for age. Pain: Complains of pain in throat Pain currently is 9 out of 10 on a pain scale. GI: Pt is actively vomiting bile, Reports nausea, vomiting. Historical: - Allergies: 13:27 No Known Allergies; jl7 - Home Meds: 13:27 atorvastatin Oral [Active]; Farxiga Oral [Active]; lisinopril Oral [Active]; Metformin jl7 Oral [Active]; basaglar [Active]; - PMHx: 13:27 Diabetes - NIDDM; Hypertension; Hyperlipidemia; jl7 - Immunization history:: Adult Immunizations up to date. - Social history:: Smoking status: Patient denies any tobacco usage or history of. Screenin:51 Abuse screen: Denies threats or abuse. Nutritional screening: vomiting since yesterday, vc decreased appetite.. Tuberculosis screening: No symptoms or risk factors identified. Fall Risk None identified. Assessment: 13:53 General: Appears in no apparent distress. uncomfortable, ill, Behavior is cooperative, vc appropriate for age. Pain: Complains of pain in abdomen. Neuro: Level of Consciousness is awake, alert, obeys commands, Oriented to person, place, time, situation. Cardiovascular: Capillary refill < 3 seconds Patient's skin is warm and dry. Respiratory: Airway is patent Respiratory effort is even, unlabored, Respiratory pattern is regular, symmetrical. GI: Abdomen is round Pt is actively vomiting black substance, states tastes "like acid" Reports lower abdominal pain, upper abdominal pain, vomiting, hiccups. : No signs and/or symptoms were reported regarding the genitourinary system. EENT: No signs and/or symptoms were reported regarding the EENT system. Derm: No signs and/or symptoms reported regarding the dermatologic system. Musculoskeletal: Circulation, motion, and sensation intact. Range of motion: intact in all extremities. 15:00 Reassessment: Patient appears in no apparent distress at this time. Patient and/or vc family updated on plan of care and expected duration. Pain level reassessed. 16:06 Reassessment: Patient appears in no apparent distress at this time. Patient is alert, iw oriented x 3, equal unlabored respirations, skin warm/dry/pink. pt appears drowsy, awakens easily to verbal stimuli, pt no longer hiccuping. 16:28 Reassessment: Patient appears in no apparent distress at this time. Patient and/or vc family updated on plan of care and expected duration. Pain level reassessed. Patient states symptoms have improved. 17:30 Reassessment: Patient appears in no apparent distress at this time. Patient and/or ls4 family updated on plan of care and expected duration. Pain level reassessed. Patient is alert, oriented x 3, equal unlabored respirations, skin warm/dry/pink. 18:30 Reassessment: Patient appears in no apparent distress at this time. Patient and/or ls4 family updated on plan of care and expected duration. Pain level reassessed. Patient is alert, oriented x 3, equal unlabored respirations, skin warm/dry/pink. 19:30 Reassessment: Patient appears in no apparent distress at this time. Patient and/or ls4 family updated on plan of care and expected duration. Pain level reassessed. Patient is alert, oriented x 3, equal unlabored respirations, skin warm/dry/pink. 20:21 Reassessment: Patient appears in no apparent distress at this time. Patient and/or ls4 family updated on plan of care and expected duration. Pain level reassessed. Patient is alert, oriented x 3, equal unlabored respirations, skin warm/dry/pink. POC GLUCOSE 232. 21:30 Reassessment: Patient appears in no apparent distress at this time. Patient and/or ls4 family updated on plan of care and expected duration. Pain level reassessed. Patient is alert, oriented x 3, equal unlabored respirations, skin warm/dry/pink. 22:00 Reassessment: Patient appears in no apparent distress at this time. Patient and/or ls4 family updated on plan of care and expected duration. Pain level reassessed. Patient is alert, oriented x 3, equal unlabored respirations, skin warm/dry/pink. 10/19 00:00 Reassessment: Patient appears in no apparent distress at this time. Patient and/or ls4 family updated on plan of care and expected duration. Pain level reassessed. Patient is alert, oriented x 3, equal unlabored respirations, skin warm/dry/pink. 11:36 Reassessment: Patient appears in no apparent distress at this time. Patient and/or ch family updated on plan of care and expected duration. Pain level reassessed. Patient is alert, oriented x 3, equal unlabored respirations, skin warm/dry/pink. see [facility] for charting. Vital Signs: 10/18 13:23 BP 104 / 70; Pulse 111; Resp 17; Temp 97.8; Pulse Ox 100% ; Weight 99.79 kg; Pain 9/10; jl7 15:21 BP 124 / 67; Pulse 101; Resp 16 S; Pulse Ox 100% on R/A; iw 16:08 BP 101 / 66; Pulse 90; Resp 16 S; Pulse Ox 100% on R/A; iw 16:30 BP 112 / 64; Pulse 93; Resp 18; Pulse Ox 100% on R/A; Pain 0/10; ls4 17:30 BP 115 / 72; Pulse 88; Resp 16; Pulse Ox 100% on R/A; Pain 0/10; ls4 18:30 BP 95 / 54; Pulse 86; Resp 16; Pulse Ox 100% on R/A; Pain 0/10; ls4 20:11 BP 97 / 53; Pulse 85; Resp 16; Temp 97.9(O); Pulse Ox 100% on R/A; Pain 0/10; ls4 21:30 BP 110 / 62; Pulse 88; Resp 16; Pulse Ox 100% on R/A; Pain 0/10; ls4 22:39 BP 90 / 46; Pulse 83; Resp 16; Temp 97.9; Pulse Ox 99% on R/A; Pain 0/10; ls4 18:30 pt sleeping ls4 ED Course: 13:18 Patient arrived in ED. fj1 13:22 Trevin Camarillo MD is Attending Physician. karlene 13:26 Triage completed. jl7 13:27 Arm band placed on right wrist. jl7 13:36 Rox Pena, RN is Primary Nurse. vc 13:52 Patient has correct armband on for positive identification. Bed in low position. vc 14:54 XRAY Chest (1 view) In Process Unspecified. EDMS 15:22 IV is patent, with fluids infusing freely, with good blood return. iw 15:30 CT Chest Abdomen Pelvis W/O Contrast: no iv, no oral In Process Unspecified. EDMS 16:00 quality assurance monitor body on. Pulse ox on. NIBP on. ls4 16:00 Warm blanket given. Pillow given. Verbal reassurance given. ls4 16:00 No provider procedures requiring assistance completed. Patient maintains SpO2 ls4 saturation greater than 95% on room air. 16:05 Inserted saline lock: 20 gauge in left antecubital area, using aseptic technique. Blood iw collected. IV inserted by URBANO Viveros tech. 16:07 Osmolality, Serum Sent. iw 16:26 Marbin Snell DO is Hospitalizing Provider. karlene 20:21 Appears to be sleeping. ls4 23:07 Glucose, Ancillary Testing Sent. ds4 10/19 00:00 No apparent distress. Appears to be sleeping. ls4 01:39 No apparent distress. Appears to be sleeping. ls4 04:11 Patient admitted, IV remains in place. rv 07:20 Primary Nurse role handed off by Rox Pena, KINDRA ch 07:20 Dolores Simmons, KINDRA is Primary Nurse. ch Administered Medications: 10/18 14:20 Drug: Zofran (Ondansetron) 4 mg Route: IVP; Site: right antecubital; vc 16:12 Follow up: Response: No adverse reaction; Nausea is decreased iw 14:27 Drug: morphine 4 mg Route: IVP; Site: right antecubital; vc 15:30 Follow up: Response: No adverse reaction; Pain is decreased iw 14:27 Drug: Pepcid 20 mg Route: IVP; Site: right antecubital; vc 16:11 Follow up: Response: No adverse reaction; Pain is decreased iw 14:28 CANCELLED (Duplicate Order): morphine 5 mg IVP once; RASS on ADMIN: Combtv4, Very karlene Agttd3, Agttd2, Rstlss1, AlertClm0, Drwsy-1, Lt Sdtn-2, Mod Sdtn-3, Dp Sdtn-4, UnArsble-5 14:29 CANCELLED (Duplicate Order): morphine 4 mg IVP once; RASS on ADMIN: Combtv4, Very karlene Agttd3, Agttd2, Rstlss1, AlertClm0, Drwsy-1, Lt Sdtn-2, Mod Sdtn-3, Dp Sdtn-4, UnArsble-5 14:30 CANCELLED (Duplicate Order): Pepcid 20 mg IVP once vc 14:31 Drug: NS 0.9% 1000 ml Route: IV; Rate: 1 bolus; Site: right antecubital; vc 10/19 04:09 Follow up: IV Status: Completed infusion rv 10/18 14:40 Drug: GI Cocktail without - (Maalox Suspension 30 ml, Lidocaine Liquid 2 % 15 vc ml) Route: PO; 16:11 Follow up: Response: No adverse reaction; Pain is decreased iw 15:00 Drug: NS 0.9% 1000 ml Route: IV; Rate: 1 bolus; Site: right antecubital; iw 16:00 Follow up: IV Status: Completed infusion; IV Intake: 1000ml ls4 15:03 Not Given (Duplicate Order): NS 0.9% 1000 ml IV at 1 bolus Per protocol; 1000 mL bolus karlene 15:20 Drug: Insulin Regular Human 8 units {Co-Signature: sv (Nery Nguyen RN).} Route: iw IVP; Site: right antecubital; 15:20 Drug: Reglan 10 mg Route: IVP; Site: right antecubital; 16:12 Follow up: Response: No adverse reaction iw 16:07 Drug: Potassium Chloride 20 mEq Route: IV; Rate: per protocol; Site: right antecubital; 10/19 04:08 Follow up: IV Status: Completed infusion rv 10/18 16:41 Drug: GI Cocktail without - (Maalox Suspension 30 ml, Lidocaine Liquid 2 % 15 vc ml) Route: PO; 17:05 Follow up: Response: No adverse reaction ls4 16:41 Drug: ProTONIX 40 mg Route: IVP; Site: right antecubital; 17:05 Follow up: Response: No adverse reaction ls4 17:50 Drug: Insulin Regular Human 10 units {Co-Signature: ls4 (Avril Diaz RN).} Route: IVP; Site: right antecubital; 18:00 Follow up: Response: No adverse reaction ls4 18:05 Drug: Insulin Drip - (Insulin Regular Human 100 units, NS 0.9% 100 ml) {Co-Signature: ls4 (Avril Diaz RN).} Route: IV; Rate: 6 units/hr; Site: right antecubital; 10/19 04:07 Follow up: IV Status: Infusion continued upon admission 10/18 18:12 Drug: NS 0.9% 1000 ml Route: IV; Rate: 125 ml/hr; Site: right antecubital; 10/19 04:06 Follow up: IV Status: Order to discontinue infusion rv 10/18 18:13 Drug: Thiamine 100 mg Route: IV; Rate: bolus; Site: right antecubital; 10/19 04:07 Follow up: IV Status: Completed infusion rv 10/18 19:10 Drug: ProTONIX 40 mg Route: IVP; Site: left antecubital; 4 19:30 Follow up: Response: No adverse reaction ls4 19:15 Not Given (Duplicate Order): chlorproMAZINE 50 mg IM once karlene 20:11 Drug: chlorproMAZINE 50 mg {Note: late admin due to waiting for med to be recieved from [facility] because it is only on med surg floor .} Route: PO; 20:31 Follow up: Response: No adverse reaction ls4 23:18 Drug: NS 0.9% 2000 ml {Note: ordered by dr adams, phone order for pt blood pressure. .} ls4 Route: IV; Rate: 1 bolus; Site: left antecubital; 10/19 04:05 Follow up: IV Status: Completed infusion rv 00:40 Not Given (Duplicate Order): NS 0.9% 1000 ml IV at 1 bolus Per protocol; 1000 mL bolus ls4 17:20 Drug: NS 0.9% 1000 ml Route: IV; Rate: 125 ml/hr; Site: left antecubital; Point of Care Testing: Blood Glucose: 10/18 16:06 Blood Glucose: 404 mg/dL; iw Ranges: Intake: 16:00 IV: 1000ml; Total: 1000ml. ls4 Outcome: 16:28 Decision to Hospitalize by Provider. [facility] 10/19 04:10 Admitted to ER Hold. Please see [facility] for further documentation. rv Condition: good Discharge instructions given to Instructed on the need for admit, Demonstrated understanding of instructions. 20:04 Patient left the ED. lp1 Signatures: Dispatcher [employer] EDMS Dolores Simmons, RN RN Trevin Gallardo MD MD cha Williams, Irene RN KINDRA iw Radha Lawson RN RN lp1 Epi Sands ds4 Fernanda Dee RN RN jl7 Tristan Ramirez RN RN rv Stewart, Lisa, RN RN ls4 Rox Pena RN RN vc James, Frank fj Nery Nguyen RN Avril Diaz RN ls4 Corrections: (The following items were deleted from the chart) 01:40 01:39 Appears to be sleeping. ls4 ls4
--- NOTE | 2019-10-19 16:30 | EDPHYS ---
Physician Documentation [facility] Name: Dudley Castellano Age: 29 yrs Sex: Male : 1990 Arrival Date: 10/19/2019 Time: 13:18 Bed 6 Private MD: URBANO Physician Trevin Camairllo HPI: 10/18 14:49 This 29 yrs old Male presents to ER via Ambulatory with complaints of karlene Vomiting, Decreased Appetite, Abdominal Pain. 14:49 The patient presents to the emergency department with nausea, vomiting, abdominal pain, karlene of the right upper quadrant and left upper quadrant, described as crampy. Onset: The symptoms/episode began/occurred 3 day(s) ago. Possible causes: unknown. The symptoms are aggravated by nothing. The symptoms are alleviated by nothing. Associated signs and symptoms: The patient has no apparent associated signs or symptoms. Severity of symptoms: At their worst the symptoms were mild in the emergency department the symptoms are unchanged. The patient has not experienced similar symptoms in the past. Historical: - Allergies: 13:27 No Known Allergies; jl7 - Home Meds: 13:27 atorvastatin Oral [Active]; Farxiga Oral [Active]; lisinopril Oral [Active]; Metformin jl7 Oral [Active]; basaglar [Active]; - PMHx: 13:27 Diabetes - NIDDM; Hypertension; Hyperlipidemia; jl7 - Immunization history:: Adult Immunizations up to date. - Social history:: Smoking status: Patient denies any tobacco usage or history of. ROS: 14:51 Constitutional: Negative for fever, chills, and weight loss, Eyes: Negative for injury, karlene pain, redness, and discharge, ENT: Negative for injury, pain, and discharge, Neck: Negative for injury, pain, and swelling, Cardiovascular: Negative for chest pain, palpitations, and edema, Respiratory: Negative for shortness of breath, cough, wheezing, and pleuritic chest pain, Back: Negative for injury and pain, : Negative for injury, bleeding, discharge, and swelling, MS/Extremity: Negative for injury and deformity, Skin: Negative for injury, rash, and discoloration, Neuro: Negative for headache, weakness, numbness, tingling, and seizure, Psych: Negative for depression, anxiety, suicide ideation, homicidal ideation, and hallucinations, Allergy/Immunology: Negative for hives, rash, and allergies, Endocrine: Negative for neck swelling, polydipsia, polyuria, polyphagia, and marked weight changes. 14:51 Abdomen/GI: Positive for abdominal pain, abdominal cramps. Exam: 14:51 Constitutional: This is a well developed, well nourished patient who is awake, alert, karlene and in no acute distress. Head/Face: Normocephalic, atraumatic. Eyes: Pupils equal round and reactive to light, extra-ocular motions intact. Lids and lashes normal. Conjunctiva and sclera are non-icteric and not injected. Cornea within normal limits. Periorbital areas with no swelling, redness, or edema. ENT: Nares patent. No nasal discharge, no septal abnormalities noted. Tympanic membranes are normal and external auditory canals are clear. Oropharynx with no redness, swelling, or masses, exudates, or evidence of obstruction, uvula midline. Mucous membranes moist. Neck: Trachea midline, no thyromegaly or masses palpated, and no cervical lymphadenopathy. Supple, full range of motion without nuchal rigidity, or vertebral point tenderness. No Meningismus. Chest/axilla: Normal chest wall appearance and motion. Nontender with no deformity. No lesions are appreciated. Cardiovascular: Regular rate and rhythm with a normal S1 and S2. No gallops, murmurs, or rubs. Normal PMI, no JVD. No pulse deficits. Respiratory: Lungs have equal breath sounds bilaterally, clear to auscultation and percussion. No rales, rhonchi or wheezes noted. No increased work of breathing, no retractions or nasal flaring. Back: No spinal tenderness. No costovertebral tenderness. Full range of motion. Male : Normal genitalia with no discharge or lesions. Skin: Warm, dry with normal turgor. Normal color with no rashes, no lesions, and no evidence of cellulitis. MS/ Extremity: Pulses equal, no cyanosis. Neurovascular intact. Full, normal range of motion. Neuro: Awake and alert, GCS 15, oriented to person, place, time, and situation. Cranial nerves II-XII grossly intact. Motor strength 5/5 in all extremities. Sensory grossly intact. Cerebellar exam normal. Normal gait. Psych: Awake, alert, with orientation to person, place and time. Behavior, mood, and affect are within normal limits. 14:51 Abdomen/GI: Inspection: abdomen appears normal, Bowel sounds: normal, Palpation: mild abdominal tenderness, in the epigastric area, right upper quadrant and left upper quadrant, Liver: no appreciated palpable abnormalities, Hernia: not appreciated. Vital Signs: 13:23 BP 104 / 70; Pulse 111; Resp 17; Temp 97.8; Pulse Ox 100% ; Weight 99.79 kg; Pain 9/10; jl7 15:21 BP 124 / 67; Pulse 101; Resp 16 S; Pulse Ox 100% on R/A; iw 16:08 BP 101 / 66; Pulse 90; Resp 16 S; Pulse Ox 100% on R/A; iw 16:30 BP 112 / 64; Pulse 93; Resp 18; Pulse Ox 100% on R/A; Pain 0/10; ls4 17:30 BP 115 / 72; Pulse 88; Resp 16; Pulse Ox 100% on R/A; Pain 0/10; ls4 18:30 BP 95 / 54; Pulse 86; Resp 16; Pulse Ox 100% on R/A; Pain 0/10; ls4 20:11 BP 97 / 53; Pulse 85; Resp 16; Temp 97.9(O); Pulse Ox 100% on R/A; Pain 0/10; ls4 21:30 BP 110 / 62; Pulse 88; Resp 16; Pulse Ox 100% on R/A; Pain 0/10; ls4 22:39 BP 90 / 46; Pulse 83; Resp 16; Temp 97.9; Pulse Ox 99% on R/A; Pain 0/10; ls4 18:30 pt sleeping ls4 MDM: 13:48 Patient medically screened. [facility] 14:53 Data reviewed: vital signs, nurses notes, lab test result(s), EKG, radiologic studies, karlene plain films. 10/18 13:46 Order name: Glucose, Ancillary Testing; Complete Time: 14:12 EDMS 10/18 14:09 Order name: Basic Metabolic Panel; Complete Time: 15:13 [facility] 10/18 17:30 Interpretation: K 3.3. la1 10/18 14:09 Order name: CBC with Diff; Complete Time: 17:30 [facility] 10/18 14:09 Order name: Creatinine for Radiology; Complete Time: 15:13 [facility] 10/18 14:09 Order name: Hepatic Function; Complete Time: 15:13 [facility] 10/18 14:09 Order name: Lipase; Complete Time: 15:13 karlene 10/18 14:28 Order name: Magnesium; Complete Time: 15:45 [facility] 10/18 14:28 Order name: NT PRO-BNP; Complete Time: 15:45 [facility] 10/18 14:28 Order name: PT-INR; Complete Time: 15:13 karlene 10/18 14:28 Order name: Troponin (emerg Dept Use Only); Complete Time: 15:45 [facility] 10/18 14:31 Order name: Strep; Complete Time: 15:45 [facility] 10/18 15:05 Order name: Urine Osmolality; Complete Time: 16:28 [facility] 10/18 15:05 Order name: Urine Sodium Random; Complete Time: 15:45 [facility] 10/18 15:05 Order name: Osmolality, Serum; Complete Time: 17:30 [facility] 10/18 15:16 Order name: Phosphorus; Complete Time: 15:45 [facility] 10/18 15:16 Order name: Uric Acid; Complete Time: 15:45 [facility] 10/18 15:16 Order name: ABG; Complete Time: 16:21 [facility] 10/18 15:17 Order name: Throat Culture [facility] 10/18 15:26 Order name: Urine Dipstick--Ancillary (enter results); Complete Time: 15:45 10/18 16:16 Order name: Glucose, Ancillary Testing; Complete Time: 16:21 [facility] 10/18 16:38 Order name: Acetone, Serum; Complete Time: 19:16 [facility] 10/18 16:38 Order name: ETOH Level; Complete Time: 19:16 [facility] 10/18 16:38 Order name: UDS; Complete Time: 17:30 [facility] 10/18 16:42 Order name: Hemoglobin A1c; Complete Time: 19:16 [facility] 10/18 17:07 Order name: CBC Smear Scan; Complete Time: 17:30 [facility] 10/18 17:23 Order name: Procalcitonin; Complete Time: 07:23 EDMS 10/18 17:23 Order name: Acetone Level EDMS 10/18 17:23 Order name: Acetone Level; Complete Time: 07:22 [facility]MS 10/18 17:23 Order name: Basic Metabolic Panel [facility] 10/18 17:23 Order name: Basic Metabolic Panel; Complete Time: 19:16 EDMS 10/18 17:23 Order name: Basic Metabolic Panel; Complete Time: 07:22 [facility] 10/18 17:23 Order name: Basic Metabolic Panel; Complete Time: 07:22 EDMS 10/18 17:23 Order name: CBC with Automated Diff EDMS 10/18 17:23 Order name: CBC with Automated Diff; Complete Time: 07:22 EDMS 10/18 17:23 Order name: CBC with Automated Diff EDMS 10/18 17:23 Order name: CBC with Automated Diff EDMS 10/18 17:23 Order name: Lipid Profile EDMS 10/18 17:23 Order name: Lipid Profile; Complete Time: 07:22 EDMS 10/18 17:23 Order name: Magnesium EDMS 10/18 17:23 Order name: Magnesium; Complete Time: 07:22 EDMS 10/18 17:23 Order name: Magnesium EDMS 10/18 17:23 Order name: Magnesium EDMS 10/18 17:24 Order name: Blood Culture EDMS 10/18 17:26 Order name: Glucose, Ancillary Testing EDMS 10/18 20:29 Order name: Glucose, Ancillary Testing; Complete Time: 07:22 EDMS 10/18 23:17 Order name: Glucose, Ancillary Testing; Complete Time: 07:22 EDMS 10/19 01:05 Order name: Glucose, Ancillary Testing; Complete Time: 07:22 EDMS 10/19 03:21 Order name: Glucose, Ancillary Testing; Complete Time: 07:23 EDMS 10/19 04:22 Order name: Glucose, Ancillary Testing; Complete Time: 07:23 EDMS 10/19 05:28 Order name: Uric Acid; Complete Time: 07:23 EDMS 10/19 05:29 Order name: Phosphorus; Complete Time: 07:23 EDMS 10/19 05:31 Order name: Glucose, Ancillary Testing; Complete Time: 07:23 EDMS 10/19 06:38 Order name: Glucose, Ancillary Testing; Complete Time: 07:23 EDMS 10/19 07:04 Order name: Urine Microalbumin/Creatinine; Complete Time: 07:23 EDMS 10/19 07:19 Order name: Glucose, Ancillary Testing; Complete Time: 07:23 EDMS 10/19 07:31 Order name: Urinalysis W/Microscopic EDMS 10/19 08:44 Order name: Glucose, Ancillary Testing [facility] 10/19 08:47 Order name: Basic Metabolic Panel [facility] 10/19 09:13 Order name: Glucose, Ancillary Testing [facility] 10/19 10:16 Order name: Glucose, Ancillary Testing [facility] 10/19 11:13 Order name: Glucose, Ancillary Testing [facility] 10/18 14:09 Order name: IV Saline Lock; Complete Time: 15:05 [facility] 10/18 14:09 Order name: Labs collected and sent; Complete Time: 15:05 [facility] 10/18 14:28 Order name: XRAY Chest (1 view); Complete Time: 15:45 [facility] 10/18 14:28 Order name: EKG; Complete Time: 14:29 [facility] 10/18 14:28 Order name: Cardiac monitoring; Complete Time: 15:32 [facility] 10/18 14:28 Order name: EKG - Nurse/Tech; Complete Time: 15:32 [facility] 10/18 14:28 Order name: O2 Per Protocol; Complete Time: 15:31 [facility] 10/18 14:28 Order name: O2 Sat Monitoring; Complete Time: 15:31 [facility] 10/18 15:05 Order name: Seizure Precautions; Complete Time: 15:28 [facility] 10/18 15:15 Order name: CT Chest Abdomen Pelvis W/O Contrast: no iv, no oral; Complete Time: 15:51 [facility] 10/18 15:51 Order name: IV Saline Lock - Large Bore; Complete Time: 16:05 [facility] 10/18 16:22 Order name: Blood Glucose Level; Complete Time: 18:53 [facility] 10/18 17:23 Order name: CONS Pharmacy Consult [facility] 10/18 17:23 Order name: CONS Physician Consult [facility] 10/18 17:23 Order name: NPO [facility] 10/19 12:25 Order name: Glucose, Ancillary Testing [facility] 10/19 12:48 Order name: Basic Metabolic Panel [facility] 10/19 13:23 Order name: Glucose, Ancillary Testing [facility] 10/19 14:18 Order name: Glucose, Ancillary Testing [facility] 10/19 15:27 Order name: Glucose, Ancillary Testing [facility] 10/19 16:53 Order name: Glucose, Ancillary Testing [facility] 10/19 17:00 Order name: Basic Metabolic Panel [facility] 10/19 18:12 Order name: Diet Clear Liquid; Complete Time: 18:12 bd Administered Medications: 14:20 Drug: Zofran (Ondansetron) 4 mg Route: IVP; Site: right antecubital; vc 16:12 Follow up: Response: No adverse reaction; Nausea is decreased iw 14:27 Drug: morphine 4 mg Route: IVP; Site: right antecubital; vc 15:30 Follow up: Response: No adverse reaction; Pain is decreased iw 14:27 Drug: Pepcid 20 mg Route: IVP; Site: right antecubital; vc 16:11 Follow up: Response: No adverse reaction; Pain is decreased iw 14:28 CANCELLED (Duplicate Order): morphine 5 mg IVP once; RASS on ADMIN: Combtv4, Very karlene Agttd3, Agttd2, Rstlss1, AlertClm0, Drwsy-1, Lt Sdtn-2, Mod Sdtn-3, Dp Sdtn-4, UnArsble-5 14:29 CANCELLED (Duplicate Order): morphine 4 mg IVP once; RASS on ADMIN: Combtv4, Very karlene Agttd3, Agttd2, Rstlss1, AlertClm0, Drwsy-1, Lt Sdtn-2, Mod Sdtn-3, Dp Sdtn-4, UnArsble-5 14:30 CANCELLED (Duplicate Order): Pepcid 20 mg IVP once vc 14:31 Drug: NS 0.9% 1000 ml Route: IV; Rate: 1 bolus; Site: right antecubital; vc 0331 04:09 Follow up: IV Status: Completed infusion rv 10/18 14:40 Drug: GI Cocktail without - (Maalox Suspension 30 ml, Lidocaine Liquid 2 % 15 vc ml) Route: PO; 16:11 Follow up: Response: No adverse reaction; Pain is decreased iw 15:00 Drug: NS 0.9% 1000 ml Route: IV; Rate: 1 bolus; Site: right antecubital; iw 16:00 Follow up: IV Status: Completed infusion; IV Intake: 1000ml ls4 15:03 Not Given (Duplicate Order): NS 0.9% 1000 ml IV at 1 bolus Per protocol; 1000 mL bolus karlene 15:20 Drug: Insulin Regular Human 8 units {Co-Signature: sv (Nery Nguyen RN).} Route: iw IVP; Site: right antecubital; 15:20 Drug: Reglan 10 mg Route: IVP; Site: right antecubital; iw 16:12 Follow up: Response: No adverse reaction iw 16:07 Drug: Potassium Chloride 20 mEq Route: IV; Rate: per protocol; Site: right antecubital; 10/19 04:08 Follow up: IV Status: Completed infusion rv 10/18 16:41 Drug: GI Cocktail without - (Maalox Suspension 30 ml, Lidocaine Liquid 2 % 15 vc ml) Route: PO; 17:05 Follow up: Response: No adverse reaction ls4 16:41 Drug: ProTONIX 40 mg Route: IVP; Site: right antecubital; vc 17:05 Follow up: Response: No adverse reaction ls4 17:50 Drug: Insulin Regular Human 10 units {Co-Signature: [email or web address] (Avril Diaz RN).} Route: IVP; iw Site: right antecubital; 18:00 Follow up: Response: No adverse reaction ls4 18:05 Drug: Insulin Drip - (Insulin Regular Human 100 units, NS 0.9% 100 ml) {Co-Signature: iw ls4 (Avril Diaz RN).} Route: IV; Rate: 6 units/hr; Site: right antecubital; 10/19 04:07 Follow up: IV Status: Infusion continued upon admission rv 10/18 18:12 Drug: NS 0.9% 1000 ml Route: IV; Rate: 125 ml/hr; Site: right antecubital; 10/19 04:06 Follow up: IV Status: Order to discontinue infusion rv 10/18 18:13 Drug: Thiamine 100 mg Route: IV; Rate: bolus; Site: right antecubital; 10/19 04:07 Follow up: IV Status: Completed infusion rv 10/18 19:10 Drug: ProTONIX 40 mg Route: IVP; Site: left antecubital; ls4 19:30 Follow up: Response: No adverse reaction ls4 19:15 Not Given (Duplicate Order): chlorproMAZINE 50 mg IM once karlene 20:11 Drug: chlorproMAZINE 50 mg {Note: late admin due to waiting for med to be recieved from 4 HS because it is only on med surg floor .} Route: PO; 20:31 Follow up: Response: No adverse reaction ls4 23:18 Drug: NS 0.9% 2000 ml {Note: ordered by dr adams, phone order for pt blood pressure. .} ls4 Route: IV; Rate: 1 bolus; Site: left antecubital; 10/19 04:05 Follow up: IV Status: Completed infusion rv 00:40 Not Given (Duplicate Order): NS 0.9% 1000 ml IV at 1 bolus Per protocol; 1000 mL bolus ls4 17:20 Drug: NS 0.9% 1000 ml Route: IV; Rate: 125 ml/hr; Site: left antecubital; Point of Care Testing: Blood Glucose: 10/18 16:06 Blood Glucose: 404 mg/dL; iw Ranges: Critical Glucose Levels:Adult <50 mg/dl or >400 mg/dl <40 mg/dl or >180 mg/dl Disposition: 10/19/19 16:28 Hospitalization ordered by Marbin Snell for Inpatient Admission. Preliminary diagnosis are Vomiting, Volume depletion, Type 2 diabetes mellitus, Hypo-osmolality and hyponatremia, Hypokalemia, Unspecified kidney failure - prerenal, Hiccough, Esophagitis. - Bed requested for Telemetry/MedSurg (Inpatient). - Status is Inpatient Admission. lp1 - Condition is Serious. - Problem is new. - Symptoms have improved. Signatures: Dispatcher [employer] EDMS Thelma Ellis RN RN dw Anderson, Corey, MD MD cha Williams, Irene RN KINDRA iw Radha Lawson RN RN lp1 Kalin Bravo, HOSPITAL EDUCATION COORDINATOR-C HOSPITAL EDUCATION COORDINATOR-Cla1 Fernanda Dee RN RN jl7 Avril Diaz RN RN ls4 Rox Pena RN RN Tristan Ramirez RN rv Nery Diaz RN ls4 Corrections: (The following items were deleted from the chart) 14:28 14:28 morphine 5 mg IVP once; RASS on ADMIN: Combtv4, Very Agttd3, Agttd2, Rstlss1, karlene AlertClm0, Drwsy-1, Lt Sdtn-2, Mod Sdtn-3, Dp Sdtn-4, UnArsble-5 ordered. vc 14:29 14:28 morphine 4 mg IVP once; RASS on ADMIN: Combtv4, Very Agttd3, Agttd2, Rstlss1, karlene AlertClm0, Drwsy-1, Lt Sdtn-2, Mod Sdtn-3, Dp Sdtn-4, UnArsble-5 ordered. karlene 14:30 14:28 Pepcid 20 mg IVP once ordered. karlene vc 19:12 16:28 Hospitalization Ordered by Marbin Snell DO for Inpatient Admission. Preliminary dw diagnosis is Vomiting; Volume depletion; Type 2 diabetes mellitus; Hypo-osmolality and hyponatremia; Hypokalemia; Unspecified kidney failure - prerenal; Hiccough; Esophagitis. Bed requested for Telemetry/MedSurg (Inpatient). Status is Inpatient Admission. Condition is Serious. Problem is new. Symptoms have improved. karlene 10/19 19:07 10/18 19:12 10/19/2019 16:28 Hospitalization Ordered by Marbin Snell DO for Inpatient dw Admission. Preliminary diagnosis is Vomiting; Volume depletion; Type 2 diabetes mellitus; Hypo-osmolality and hyponatremia; Hypokalemia; Unspecified kidney failure - prerenal; Hiccough; Esophagitis. Bed requested for [facility] ER HOLD. Status is Inpatient Admission. Condition is Serious. Problem is new. Symptoms have improved. dw 10/19 20:04 19:07 10/19/2019 16:28 Hospitalization Ordered by Marbin Snell DO for Inpatient lp1 Admission. Preliminary diagnosis is Vomiting; Volume depletion; Type 2 diabetes mellitus; Hypo-osmolality and hyponatremia; Hypokalemia; Unspecified kidney failure - prerenal; Hiccough; Esophagitis. Bed requested for Telemetry/MedSurg (Inpatient). Status is Inpatient Admission. Condition is Serious. Problem is new. Symptoms have improved. dw
[2019-10-19] MEDS ORDERED: PANTOPRAZOLE 40 MG INJ ONE ×2 (16:35→19:14)
[2019-10-19] MEDS ORDERED: NA CHLORIDE 0.9% 50 ML IV ONE (16:36)
[2019-10-19 17:07] LABS: Anisocytosis 1+; Blood Morphology Comment NOTED (NOT SEEN); Platelet Estimate ADEQ; Poikilocytosis 1+; Urine White Blood Cell Casts OK
[2019-10-19] MEDS ORDERED: SODIUM CHLORIDE 0.9% 10ML INJ IV PRN (17:08)
[2019-10-19] MEDS ORDERED: HYDRALAZINE HCL 20 MG/ML VIAL IV PRN (17:08)
[2019-10-19] MEDS ORDERED: ACETAMINOPHEN 325 MG TABLET PO PRN (17:08)
[2019-10-19 17:10] LABS: Barbiturates NEGATIVE (NEGATIVE); Benzodiazepines NEGATIVE (NEGATIVE); Cocaine NEGATIVE (NEGATIVE); METHAMPHETAM NEGATIVE (NEGATIVE); Methadone NEGATIVE (NEGATIVE); Opiates NEGATIVE (NEGATIVE); Phencyclidine NEGATIVE (NEGATIVE); THC Cannibis NEGATIVE (NEGATIVE)
[2019-10-19] MEDS ORDERED: INSULIN -REGULAR HUMAN 100 UNIT in NA CHLORIDE 0.9% 100 ML IV SCH (17:15)
--- NOTE | 2019-10-19 17:33 | P.HP ---
Certification for Inpatient Patient admitted to: Inpatient With expected LOS: >2 Midnights Patient will require the following post-hospital care: None Practitioner: I am a practitioner with admitting privileges, knowledge of patient current condition, hospital course, and medical plan of care. Services: Services provided to patient in accordance with Admission requirements found in Title 42 Section 412.3 of the Code of Federal Regulations Patient History Date of Service: 10/19/19 Primary Care Provider: Pete Rodriguez Reason for admission: Nausea and vomiting History of Present Illness: 29 year old male with a history of DMII, hypertension, lyperlipidemia , and ETOH abuse. Patient presented to emergency department for a two day history of nausea and vomiting. Patient reports that he has been unable to tolerate any food or fluids by mouth since this episode began and reports a burning epigastric pain. Patient has been previously admitted for DMII with DKA. After being evaluation in the patient required admission to the ICU for further evaluation and care. When I evaluated the patient in the emergency department was was awake, alert, appropriate, in no distress with stable vital signs. Patient informed me that he has had persistent nausea and vomiting for the last two days and was also having some burning upper abdominal pain. Patient denies any recent changes to his diabetic regimen, Denies fevers, chills. Patient states the last time he had any ETOH was "a couple months ago". Labs were significant for sodium of 115 , K 3.3, Glu 411, C02 9, CRE 1.53 GFR 54, Urine with 4+ ketones and 2+ glucose. Ct scan revealed esophagitis with no other acute findings, chest xray without any acute findings. Patient will be admitted to the ICU for further treatment. Allergies No Known Allergies Allergy (Verified 10/01/18 18:10) Home medications list reviewed: Yes Home Medications: Atorvastatin Calcium [Lipitor] 40 mg PO BEDTIME 10/02/18 Metformin ER [Glucophage ER*] 1,000 mg PO BID 10/02/18 lisinopriL [Lisinopril] 40 mg PO DAILY 10/02/18 Dapagliflozin Propanediol [Farxiga] 10 mg PO DAILY 09/14/19 Insulin Glargine Human [Lantus*] 20 units SQ DAILY WITH BREAKFAST #1 vial - Past Medical/Surgical History Diabetic: Yes -: DM2 -: HTN -: HLD -: ETOH use -: [place] hand surgery Psychosocial/ Personal History: Single - Family History Family History: Reviewed- Non-Contributory - Family History Father -: Other (see notes) (Hypercholesteremia) Notes: hyperlipidemia - Social History Smoking Status: Never smoker Alcohol use: Yes CD- Drugs: No Caffeine use: Yes Place of Residence: Home Review of Systems General: Unremarkable Eyes: Unremarkable ENT: Unremarkable Respiratory: Unremarkable Cardiovascular: Unremarkable Gastrointestinal: Nausea, Vomiting, Abdominal Pain Genitourinary: Unremarkable Musculoskeletal: Unremarkable Integumentary: Unremarkable Neurological: Unremarkable Lymphatics: Unremarkable Physical Examination - Physical Exam General: Alert, In no apparent distress, Oriented x3, Cooperative HEENT: Atraumatic, Normocephalic Neck: Supple Respiratory: Clear to auscultation bilaterally, Normal air movement Cardiovascular: No edema, Normal S1 S2 Capillary refill: <2 Seconds Gastrointestinal: Normal bowel sounds, Soft and benign Musculoskeletal: No swelling, No erythema Integumentary: Other (Dry skin, sunburn ) Neurological: Normal speech, Normal strength at 5/5 x4 extr, Normal tone Lymphatics: No axilla or inguinal lymphadenopathy - Studies Laboratory Data (last 24 hrs) 10/19/19 14:30: PT 10.5, INR 0.89 10/19/19 13:45: Uric Acid 12.4 H, Phosphorus 4.9 10/19/19 13:45: Magnesium 3.1 H D 10/19/19 13:45: Creatinine 1.52 H 10/19/19 13:45: WBC 8.8, Hgb 16.8, Hct 50.3 H, Plt Count 301 10/19/19 13:45: Sodium 115 L*, Potassium 3.3 L, BUN 37 H, Creatinine 1.53 H, Glucose 411 H*, Total Bilirubin 1.0, AST 10 L, ALT 33, Alkaline Phosphatase 64, Lipase 66 L Microbiology Data (last 24 hrs): 10/19/19 14:30 Throat Group A Streptococcus Rapid Screen - Final Assessment and Plan - Plan Assessment Nausea and vomiting secondary to esophagitis with complications of DKA and hyponatremia Diabetes type 2 with hyperglycemia, uncontrolled Acute renal injury due to volume depletion Hypertension Hyperlipidemia Plan Nausea and vomiting secondary to esophagitis with complications of DKA and hyponatremia: Patient will be admitted to the ICU for close monitoring while he remains NPO, Nausea and vomiting will be controlled with zofran and protonix will be given to help with the esophagitis. Pt was given 2L NS bolus in the ED and will be placed on NS at 125cc/hr to correct the hyponatremia and nephrology will be consulted to help manage the electrolyte imbalances. Pt will be placed in an insulin drip to close the anion gap and gain better control over his blood sugars. Will provide DVT prophylaxis-lovenox. Will obtain Procalcitonin and blood culture to rule out underlying infection. Will obtain urine drug screen and ETOH level to rule out other causes. Will continue DKA protocol and transition once patient is without nausea and vomiting and gap is closed. Anticipate improvement over the next 2-4 days. Diabetes type 2 with hyperglycemia, uncontrolled: Continue with insulin drip and adjust accordingly. Will obtain A1C to evaluate severity. Acute renal injury due to volume depletion: Continue IV fluids, nephrology to adjust. Hypertension: Will provide IV medication as needed and restart home medications once tolerating PO. Hyperlipidemia: Will hold medication, obtain fasting lipid panel. Discharge Plan: Home Plan to discharge in: Greater than 2 days - Advance Directives Does patient have a Living Will: No Does patient have a Durable POA for Healthcare: No - Code Status/Comfort Care Code Status Assessed: Yes (Pt is full code) Time Spent Managing Pts Care (In Minutes): 60
[2019-10-19] MEDS: NA CHLORIDE 0.9% 1,000 ML IV SCH (18:00)
[2019-10-19] MEDS ORDERED: THIAMINE 200 MG/2 ML INJ ONE (18:03)
[2019-10-19 18:39] LABS: Potassium 3.6 mmol/L (3.5-5.1)
[2019-10-19] MEDS ORDERED: CHLORPROMAZINE 25 MG TAB PO ONE (20:11)
[2019-10-19] MEDS: PANTOPRAZOLE 40 MG INJ IVP SCH (21:00)
[2019-10-19] MEDS ORDERED: MORPHINE 2 MG/ML SYR ONE (21:09)
[2019-10-19] MEDS: MORPHINE 2 MG/ML SYR IV PRN (21:18)
[2019-10-19] MEDS: ONDANSETRON 4 MG/2 ML VIAL IV PRN (21:20)
[2019-10-19 22:55] LABS: Potassium 3.2 mmol/L (3.5-5.1)
[2019-10-20] MEDS ORDERED: NA CHLORIDE 0.9% 1,000 ML ONE ×3 (00:16→16:43)
[2019-10-20 01:55] LABS: Potassium 3.4 mmol/L (3.5-5.1)
[2019-10-20] MEDS: NA CHLORIDE 0.9% 1,000 ML IV SCH (02:00)
[2019-10-20] MEDS ORDERED: NA CHLORIDE 0.9% 2,000 ML ONE (02:38)
[2019-10-20] MEDS ORDERED: D5 0.9 NS 1,000 ML IV ONE ×2 (02:38→09:50)
[2019-10-20] MEDS ORDERED: NA CHLORIDE 0.9% 2,000 ML IV SCH (03:00)
[2019-10-20] MEDS: D5 0.9 NS 1,000 ML IV SCH ×3 (03:00→20:56)
[2019-10-20 03:12] VITALS: BMI 31.5
[2019-10-20] MEDS: MORPHINE 2 MG/ML SYR IV PRN ×3 (03:15→23:08)
[2019-10-20] MEDS ORDERED: ONDANSETRON 4 MG/2 ML VIAL ONE ×2 (03:16→16:43)
[2019-10-20] MEDS ORDERED: MORPHINE 2 MG/ML SYR ONE ×3 (03:16→16:43)
[2019-10-20] MEDS: ONDANSETRON 4 MG/2 ML VIAL IV PRN ×3 (03:19→23:08)
[2019-10-20 04:54] LABS: Absolute Lymphocytes (CBC) 0.5 K/uL (0.7-4.9); Basophils % 0.3 % (0-1.3); Hematocrit 37.1 % (39.6-49.0); MPV 7.8 fL (7.6-11.3); RBC Red Blood Cell Count 3.94 M/uL (4.33-5.43)
[2019-10-20 05:12] LABS: HDL Cholesterol 46 mg/dL (40-60); LDL Cholesterol, Calculated 39 (<130); Magnesium 2.9 mg/dL (1.8-2.4); Phosphorus 1.6 mg/dL (2.5-4.9); Uric Acid 11.6 mg/dL (3.5-7.2)
--- NOTE | 2019-10-20 05:25 | EKG ---
Test Date: 2019-10-19 Test Time: 14:42:22 Laboratory Secretary: [place] MEASUREMENT RESULTS: Intervals: Rate: 95 ME: 172 QRSD: 110 QT: 448 QTc: 562 Gully: P: 78 ME: 172 QRS: 104 T: 45 INTERPRETIVE STATEMENTS: Normal sinus rhythm Rightward axis Prolonged QT Abnormal ECG Compared to ECG 09/14/2019 12:36:45 Right-axis deviation now present Prolonged QT interval now present Sinus tachycardia no longer present Electronically Signed On 10-20-19 05:23:44 CDT by Ras Lovell
[2019-10-20 06:49] LABS: Urine Appearance CLEAR; Urine Blood NEGATIVE (NEG); Urine Color YELLOW; Urine Glucose 3+ (NEG); Urine Protein NEGATIVE (NEG); Urine Urobilinogen 0.2 mg/dL (0.2-1.0)
[2019-10-20 07:04] LABS: UR MICROALBUMIN 4.1 mg/dL (< 1.9)
[2019-10-20 07:30] LABS: Urine Bilirubin NEGATIVE (NEG)
[2019-10-20 07:31] LABS: Urine Bacteria <20 /HPF (NONE SEEN); Urine Culture Reflex Order NOT NEEDED; Urine RBC <5 /HPF (NONE SEEN)
[2019-10-20] MEDS ORDERED: MAGNES/ALUMIN/SIMET 30ML UCUP PO ONE (08:04)
[2019-10-20] MEDS ORDERED: LIDOCAINE VISCOUS 2% SOLN 15 ML UDC PO ONE (08:05)
[2019-10-20] MEDS ORDERED: PANTOPRAZOLE 40 MG INJ ONE (08:13)
[2019-10-20] MEDS ORDERED: ENOXAPARIN 40 MG/0.4 ML SQ ONE (08:13)
[2019-10-20] MEDS ORDERED: MAGNE/ALUM HYDROXD 30 ML UCUP ONE (08:13)
[2019-10-20] MEDS ORDERED: LIDOCAINE VISCOUS 2% SOLN 15 ML UDC ONE (08:14)
[2019-10-20] MEDS: PANTOPRAZOLE 40 MG INJ IVP SCH ×2 (08:27→20:45)
[2019-10-20] MEDS: ENOXAPARIN 40 MG/0.4 ML SQ SCH (08:27)
[2019-10-20 08:47] LABS: Potassium 3.3 mmol/L (3.5-5.1)
[2019-10-20] MEDS ORDERED: ACETAMINOPHEN 325 MG TABLET ONE (11:07)
[2019-10-20 12:47] LABS: Potassium 3.1 mmol/L (3.5-5.1)
--- NOTE | 2019-10-20 14:25 | P.PN ---
Subjective Date of Service: 10/20/19 Primary Care Provider: Pete Rodriguez Chief Complaint: Nausea and vomiting Subjective: Other (Patient reports improvement. No significant nausea vomiting noted this time.) Physical Examination - Vital Signs Temperature: 98.3 F Blood Pressure: 100/54 Pulse: 79 Respirations: 14 Pulse Ox (%): 98 - Physical Exam General: Alert, In no apparent distress, Cooperative HEENT: Atraumatic, Other (Mucous membranes dry) Neck: Supple Respiratory: Clear to auscultation bilaterally, Normal air movement Cardiovascular: Normal pulses, Regular rate/rhythm Gastrointestinal: Normal bowel sounds, Soft and benign, Non-distended Neurological: Normal speech, Normal strength at 5/5 x4 extr, Normal tone - Studies Laboratory Data (last 24 hrs) 10/19/19 14:30: PT 10.5, INR 0.89 10/19/19 13:45: Uric Acid 12.4 H, Phosphorus 4.9 10/19/19 13:45: Magnesium 3.1 H D 10/19/19 13:45: Creatinine 1.52 H 10/19/19 13:45: WBC 8.8, Hgb 16.8, Hct 50.3 H, Plt Count 301 10/19/19 13:45: Sodium 115 L*, Potassium 3.3 L, BUN 37 H, Creatinine 1.53 H, Glucose 411 H*, Total Bilirubin 1.0, AST 10 L, ALT 33, Alkaline Phosphatase 64, Lipase 66 L Microbiology Data (last 24 hrs): 10/19/19 14:30 Throat Group A Streptococcus Rapid Screen - Final Medications List Reviewed: Yes Assessment & Plan Discharge Plan: Home Plan to discharge in: 72 Hours Physician Review Additional Text: Assessment Nausea and vomiting secondary to esophagitis with complications of DKA and hyponatremia Diabetes type 2 with hyperglycemia, uncontrolled Acute renal injury due to volume depletion Hypertension Hyperlipidemia Plan Nausea and vomiting secondary to esophagitis with complications of DKA and hyponatremia: Patient remains on insulin drip. Will continue to monitor closely. Once gap has closed will transition to basal insulin. Will continue with current measures at this time. A1c 10.4. Once transition to basal insulin will downgrade to telemetry. Anticipate improvement over the next 48- 72 hr. Diabetes type 2 with hyperglycemia, uncontrolled: Continue with insulin drip as above. A1c 10.4 Acute renal injury due to volume depletion: Continue IV fluids, nephrology to adjust. Hypertension: Will provide IV medication as needed and restart home medications once tolerating PO. Hyperlipidemia: Will hold medication, obtain fasting lipid panel. Time Spent Managing Pts Care (In Minutes): 55
[2019-10-20] MEDS ORDERED: NA CHLORIDE 0.9% 1,000 ML IV ONE (16:00)
[2019-10-20] MEDS ORDERED: INFLUENZA VACCINE (for 3y+) 0.5 ML DOSE IMVAC ONE (16:00)
[2019-10-20] MEDS ORDERED: GLUCAGON 1 MG/VIAL IM PRN (17:08)
[2019-10-20] MEDS ORDERED: D50W 25 GM/50 ML SYRINGE/VIAL IV PRN (17:08)
[2019-10-20] MEDS: INSULIN GLARGINE 100 UNITS/ML SQ SCH (17:09)
[2019-10-20] MEDS ORDERED: TRAMADOL HCL 50 MG TAB PO PRN (17:35)
[2019-10-20 20:41] VITALS: O2SAT 99
[2019-10-20] MEDS: HYDROCODONE/APAP 7.5/325 MG TAB PO PRN (20:45)
[2019-10-20] MEDS: INSULIN -REGULAR HUMAN 50 UNIT/0.5 ML ML SQ SCH (20:46)
[2019-10-20] MEDS ORDERED: POTASSIUM CL SA 10 MEQ TAB PO ONE (21:01)
--- NOTE | 2019-10-20 21:49 | P.CNS ---
Date of Consult: 10/20/19 Reason for Consult: BLANKA Requesting Physician: Marbin Snell Primary Care Provider: [facility] Chief Complaint: Nausea and vomiting History of Present Illness: 29 yo WM DM presented to the ER with severe, progressive N/V with associated epigastric pain. +Anorexia Found to have BLANKA with electrolyte abn including acidosis. Case reviewed with Dr. Snell and Dr. Camarillo. Seen and examined in the ER. Reports improving urine output with IVF boluses. 29 year old male with a history of DMII, hypertension, lyperlipidemia , and ETOH abuse. Patient presented to emergency department for a two day history of nausea and vomiting. Patient reports that he has been unable to tolerate any food or fluids by mouth since this episode began and reports a burning epigastric pain. Patient has been previously admitted for DMII with DKA. After being evaluation in the patient required admission to the ICU for further evaluation and care. 14:49 This 29 yrs old Male presents to ER via Ambulatory with complaints of karlene Vomiting, Decreased Appetite, Abdominal Pain. 14:49 The patient presents to the emergency department with nausea, vomiting, abdominal pain, karlene of the right upper quadrant and left upper quadrant, described as crampy. Onset: The symptoms/episode began/occurred 3 day(s) ago. Possible causes: unknown. The symptoms are aggravated by nothing. The symptoms are alleviated by nothing. Associated signs and symptoms: The patient has no apparent associated signs or symptoms. Severity of symptoms: At their worst the symptoms were mild in the emergency department the symptoms are unchanged. The patient has not experienced similar symptoms in the past. Allergies No Known Allergies Allergy (Verified 10/20/19 20:17) Home Medications: Atorvastatin Calcium [Lipitor] 40 mg PO BEDTIME 10/02/18 Metformin ER [Glucophage ER*] 1,000 mg PO BID 10/02/18 lisinopriL [Lisinopril] 40 mg PO DAILY 10/02/18 Dapagliflozin Propanediol [Farxiga] 10 mg PO DAILY 09/14/19 Insulin Glargine,Hum.rec.anlog [Basaglar Kwikpen U-100] 20 units SQ DAILY - Past Medical/Surgical History Diabetic: Yes -: DM2 -: HTN -: HLD -: ETOH use -: fortino hand surgery Psychosocial/ Personal History: Single - Family History Father Medical History: Hypertension, Kidney disease, Other (see notes) Notes: hyperlipidemia - Social History Smoking Status: Unknown if ever smoked Alcohol use: Yes CD- Drugs: No Caffeine use: Yes Place of Residence: Home Review of Systems 10-point ROS is otherwise unremarkable General: Weakness, Malaise Gastrointestinal: Nausea, Vomiting, Abdominal Pain Neurological: Weakness Physical Examination Temp Pulse Resp BP Pulse Ox 98.0 F 180 H 18 123/75 99 10/20/19 20:00 10/20/19 20:00 10/20/19 20:45 10/20/19 20:00 10/20/19 20:00 General: Oriented x3, Cooperative, Moderate distress HEENT: Atraumatic, Normocephalic Neck: Supple, JVD not distended Respiratory: Clear to auscultation bilaterally Cardiovascular: No edema, Regular rate/rhythm Gastrointestinal: Soft and benign, Non-distended, No guarding Musculoskeletal: No clubbing, No contractures Integumentary: No rashes, No cyanosis Neurological: Normal speech Blood work reviewed in the chart. Serum Cr 1.53 Imagings Data: EXAM DESCRIPTION: CT - Chest Abd Pelvis Wo Con - 10/19/2019 3:30 pm CLINICAL HISTORY: Chest and abdomen pain. Abdominal distention;Dyspnea COMPARISON: No comparisons TECHNIQUE: Limited noncontrast study was performed. All CT scans are performed using dose optimization technique as appropriate and may include automated exposure control or mA/KV adjustment according to patient size. FINDINGS: The lungs are clear.Thickening of the esophagus is seen.No pleural or pericardial effusion.No intrathoracic adenopathy. The liver, spleen, pancreas, adrenal glands and kidneys are within normal limits. No bowel obstruction, free air, free fluid or abscess. Normal appendix. No pathologic lymphadenopathy in the abdomen or pelvis. No worrisome osseous finding. IMPRESSION: Esophageal thickening is present likely representing esophagitis.Otherwise, no acute finding demonstrated. EXAM DESCRIPTION: RAD - Chest Single View - 10/19/2019 2:53 pm CLINICAL HISTORY: Cough;Chest pain Chest pain. COMPARISON: Chest Single View dated 10/01/2018 FINDINGS: Portable technique limits examination quality. The lungs are grossly clear. The heart is normal in size. No displaced fractures. IMPRESSION: No acute intrathoracic process suspected. Conclusions/Impression: A/ BLANKA due to hypovolemia Proteinuria Hyponatremia Hypokalemia Acidosis Hypocalcemia HypoPO4 DM II with hyperglycemia & DKA HTN with CKD P/ Continue current POC and Medications. IVF boluses as ordered. Continue aggressive IVF. Replete potassium. Replete phosphorus. Insulin gtt as ordered/ Titrate PRN. No NSAIDs. AM labs. Daily weight. Thank you kindly for the consultation. Greater than 30min patient care.
[2019-10-20] MEDS ORDERED: POTASSIUM PHOS 30 MM in NA CHLORIDE 0.9% 500 ML IV ONE (22:08)
[2019-10-20] MEDS ORDERED: INSULIN GLARGINE 100 UNITS/ML SQ ONE (22:12)
[2019-10-20] MEDS: CALCITROL 0.25 MCG CAP PO SCH (23:05)
[2019-10-20] MEDS: POTASSIUM PHOS IN 0.9 % NACL 15 MMOL/250 ML BAG IV SCH (23:54)
[2019-10-21] MEDS: HYDROCODONE/APAP 7.5/325 MG TAB PO PRN ×2 (03:34→10:56)
[2019-10-21] MEDS: POTASSIUM PHOS IN 0.9 % NACL 15 MMOL/250 ML BAG IV SCH (03:42)
[2019-10-21] MEDS: D5 0.9 NS 1,000 ML IV SCH ×2 (03:43→11:00)
[2019-10-21 04:33] LABS: Absolute Lymphocytes (CBC) 1.1 K/uL (0.7-4.9); Basophils % 0.5 % (0-1.3); Hematocrit 38.8 % (39.6-49.0); Lymphocytes % 22.2 % (15.3-44.8); MPV 8.1 fL (7.6-11.3); RBC Red Blood Cell Count 4.14 M/uL (4.33-5.43)
[2019-10-21 04:47] LABS: BUN Blood Urea Nitrogen 9 mg/dL (7-18); Bicarbonate 18 mmol/L (21-32); Glucose Level 167 mg/dL (74-106); Magnesium 2.3 mg/dL (1.8-2.4); Phosphorus 1.8 mg/dL (2.5-4.9); Sodium Level 133 mmol/L (136-145)
[2019-10-21] MEDS: INSULIN -REGULAR HUMAN 50 UNIT/0.5 ML ML SQ SCH ×3 (07:30→16:30)
[2019-10-21] MEDS ORDERED: POTASSIUM CL SA 10 MEQ TAB PO ONE (08:14)
--- NOTE | 2019-10-21 08:24 | P.PN ---
Date of Service: 10/21/19 Vital Signs Temp Pulse Resp BP Pulse Ox 98.7 F 70 16 134/88 97 10/21/19 04:00 10/21/19 04:00 10/21/19 04:00 10/21/19 04:00 10/21/19 04:00 Medications Acetaminophen (Tylenol -Tablet) 650 mg PO Q6H PRN PRN Reason: TEMP > 101' F Stop: 11/18/19 17:09 Last Admin: 10/20/19 11:07 Dose: 650 mg Hydrocodone Bitart/Acetaminophen ([place] 7.5/325 Mg) 1 tab PO Q6H PRN PRN Reason: Pain scale 5-7 (Moderate) Stop: 11/19/19 17:36 Last Admin: 10/21/19 03:34 Dose: 1 tab Atorvastatin Calcium (Lipitor) 40 mg PO BEDTIME SANDY Stop: 11/20/19 21:01 Calcitriol (Rocaltrol) 0.5 mcg PO DAILY SANDY Stop: 11/19/19 22:31 Last Admin: 10/20/19 23:05 Dose: 0.5 mcg Dextrose (Dextrose 50% Syringe/Vial) 12.5 gm IV PRN PRN; Protocol PRN Reason: HYPOGLYCEMIA Stop: 11/19/19 17:09 Enoxaparin Sodium (Lovenox 40 Mg Inj) 40 mg SQ DAILY [facility] Stop: 11/19/19 09:01 Last Admin: 10/20/19 08:27 Dose: 40 mg Glucagon (Glucagen) 1 mg IM 1X PRN; Protocol PRN Reason: HYPOGLYCEMIA Stop: 11/19/19 17:09 Hydralazine HCl (Apresoline) 10 mg IV Q6HP PRN PRN Reason: Titrate to SBP (MUST DEFINE) Stop: 11/18/19 17:09 Dextrose/Sodium Chloride (D5w Ns 1-Liter Bag) 1,000 mls @ 125 mls/hr IV .Q8H SANDY Stop: 11/19/19 03:01 Last Admin: 10/21/19 03:43 Dose: 1,000 mls Insulin Glargine (Lantus) 20 units SQ DAILY [facility] Stop: 11/19/19 17:10 Last Admin: 10/20/19 17:09 Dose: Not Given Insulin Human Regular (Novolin -R) 0 unit SQ ACHS SANDY; Protocol Stop: 11/19/19 21:01 Last Admin: 10/20/19 20:46 Dose: Not Given Lisinopril (Prinivil) 10 mg PO DAILY [facility] Stop: 11/20/19 09:01 Metformin HCl (Glucophage Er) 1,000 mg PO BID [facility] Stop: 11/20/19 09:01 Morphine Sulfate (Morphine Sulfate) 2 mg IV Q6H PRN PRN Reason: Pain scale 5-7 (Moderate) Stop: 11/18/19 17:09 Last Admin: 10/20/19 23:08 Dose: 2 mg Ondansetron HCl (Zofran) 4 mg IV Q6H PRN PRN Reason: NAUSEA / VOMITING Stop: 11/18/19 17:09 Last Admin: 10/20/19 23:08 Dose: 4 mg Pantoprazole Sodium (Protonix Inj) 40 mg IVP Q12HR [facility]; Protocol Stop: 11/18/19 21:01 Last Admin: 10/20/19 20:45 Dose: 40 mg Potassium Chloride (Klor-Con 10 Meq Tab) 40 meq PO 1X ONE Stop: 10/21/19 11:01 Potassium Phos/Sodium Phos (Neutra-Phos Pwd) 2 pkt PO ONCE ONE Stop: 10/21/19 08:31 Sodium Bicarbonate (Sodium Bicarb 325 Mg) 1,300 mg PO ONCE ONE Stop: 10/21/19 09:31 Sodium Chloride (Sodium Chloride 10 Ml Inj) 10 ml IV UD PRN PRN Reason: Diluant Stop: 11/18/19 17:09 Last Admin: 10/19/19 21:20 Dose: 10 ml Tramadol HCl (Ultram) 50 mg PO TID PRN PRN Reason: PAIN Stop: 11/19/19 17:36 Microbiology Results 10/19/19 14:30 Throat Culture & Sensitivity - Preliminary NORMAL UPPER RESPIRATORY FRANCESCO GROWN. 10/19/19 14:30 Throat Group A Streptococcus Rapid Screen - Final Assessment/ Plan: Nephrology Feeling better. Tolerating breakfast this morning. Good urine output. CPS stable without CP or SOB. No acute events overnight. Vitals, medications, blood work and imaging reviewed in the chart. General: Oriented x3, Cooperative, Moderate distress HEENT: Atraumatic, Normocephalic Neck: Supple, JVD not distended Respiratory: Clear to auscultation bilaterally Cardiovascular: No edema, Regular rate/rhythm Gastrointestinal: Soft and benign, Non-distended, No guarding Musculoskeletal: No clubbing, No contractures Integumentary: No rashes, No cyanosis Neurological: Normal speech Blood work reviewed in the chart. Serum Cr 1.53 Imagings Data: EXAM DESCRIPTION: CT - Chest Abd Pelvis Wo Con - 10/19/2019 3:30 pm CLINICAL HISTORY: Chest and abdomen pain. Abdominal distention;Dyspnea COMPARISON: No comparisons TECHNIQUE: Limited noncontrast study was performed. All CT scans are performed using dose optimization technique as appropriate and may include automated exposure control or mA/KV adjustment according to patient size. FINDINGS: The lungs are clear.Thickening of the esophagus is seen.No pleural or pericardial effusion.No intrathoracic adenopathy. The liver, spleen, pancreas, adrenal glands and kidneys are within normal limits. No bowel obstruction, free air, free fluid or abscess. Normal appendix. No pathologic lymphadenopathy in the abdomen or pelvis. No worrisome osseous finding. IMPRESSION: Esophageal thickening is present likely representing esophagitis.Otherwise, no acute finding demonstrated. EXAM DESCRIPTION: RAD - Chest Single View - 10/19/2019 2:53 pm CLINICAL HISTORY: Cough;Chest pain Chest pain. COMPARISON: Chest Single View dated 10/01/2018 FINDINGS: Portable technique limits examination quality. The lungs are grossly clear. The heart is normal in size. No displaced fractures. IMPRESSION: No acute intrathoracic process suspected. Conclusions/Impression: A/ BLANKA due to hypovolemia Proteinuria Hyponatremia Hypokalemia Acidosis Hypocalcemia HypoPO4 DM II with hyperglycemia & DKA HTN with CKD P/ Continue current POC and Medications. Continue IVF. Klorcon ordered X2. Neutraphos ordered. Give a dose of sodium bicarb PO. Titrate insulin as needed. No NSAIDs. AM labs. Daily weight.
[2019-10-21] MEDS: ENOXAPARIN 40 MG/0.4 ML SQ SCH (08:29)
[2019-10-21] MEDS: CALCITROL 0.25 MCG CAP PO SCH (08:30)
[2019-10-21] MEDS ORDERED: POTASS/SODIUM PHOSPHATE 1 PKT POWD.PACK PO ONE (08:30)
[2019-10-21] MEDS: INSULIN GLARGINE 100 UNITS/ML SQ SCH (08:31)
[2019-10-21] MEDS: MORPHINE 2 MG/ML SYR IV PRN (08:32)
[2019-10-21] MEDS: PANTOPRAZOLE 40 MG INJ IVP SCH (08:51)
[2019-10-21] MEDS ORDERED: lisinopriL 10 MG TAB PO SCH (09:00)
[2019-10-21] MEDS ORDERED: METFORMIN ER 500 MG TAB PO SCH ×2 (09:00→17:00)
[2019-10-21] MEDS ORDERED: SODIUM BICARB 325 MG TAB PO ONE (09:30)
--- NOTE | 2019-10-21 09:50 | P.DS ---
Admission Date: 10/19/19 Discharge Date: 10/21/19 Primary Care Provider: Pete Rodriguez Disposition: ROUTINE DISCHARGE Discharge Condition: GOOD Reason for Admission: Nausea and vomiting Consultations: Nephrology-Dr. Burnett Procedures: CT scan: FINDINGS: The lungs are clear.Thickening of the esophagus is seen.No pleural or pericardial effusion.No intrathoracic adenopathy. The liver, spleen, pancreas, adrenal glands and kidneys are within normal limits. No bowel obstruction, free air, free fluid or abscess. Normal appendix. No pathologic lymphadenopathy in the abdomen or pelvis. No worrisome osseous finding. IMPRESSION: Esophageal thickening is present likely representing esophagitis.Otherwise, no acute finding demonstrated. Medical Problem List: Nausea and vomiting secondary to esophagitis with complications of DKA and hyponatremia Diabetes type 2 with hyperglycemia, uncontrolled Acute renal injury due to volume depletion Hypertension Hyperlipidemia Brief History of Present Illness: 29 year old male with a history of DMII, hypertension, lyperlipidemia , and ETOH abuse. Patient presented to emergency department for a two day history of nausea and vomiting. Patient reports that he has been unable to tolerate any food or fluids by mouth since this episode began and reports a burning epigastric pain. Patient has been previously admitted for DMII with DKA. After being evaluation in the patient required admission to the ICU for further evaluation and care. When I evaluated the patient in the emergency department was was awake, alert, appropriate, in no distress with stable vital signs. Patient informed me that he has had persistent nausea and vomiting for the last two days and was also having some burning upper abdominal pain. Patient denies any recent changes to his diabetic regimen, Denies fevers, chills. Patient states the last time he had any ETOH was "a couple months ago". Labs were significant for sodium of 115 , K 3.3, Glu 411, C02 9, CRE 1.53 GFR 54, Urine with 4+ ketones and 2+ glucose. Ct scan revealed esophagitis with no other acute findings, chest xray without any acute findings. Patient will be admitted to the ICU for further treatment. Hospital Course: Patient presented with nausea, vomiting. Patient was evaluated the emergency room. Patient found to have DKA and severe hyponatremia. CT scan revealed esophagitis. Lab indicates acute renal injury likely from volume depletion related to nausea and vomiting. Patient was admitted to ICU. Patient continued with DKA protocol. His condition improved. DKA resolved. Patient was also given IV Protonix. During the course of his stay his condition improved. Blood sugar now better controlled. Hemoglobin A1c 10.4. Nephrology was consulted to help with his hyponatremia. Sodium level now close to normal range. Electrolytes have been replaced. Medications reviewed. At discharge patient is tolerating his diet. No significant nausea or vomiting noted. At discharge patient will continue with Protonix 40 mg daily for esophagitis/GERD. GERD/esophagitis education will be provided. Recommend follow up with GI for possible EGD in the future to further evaluate. Lifestyle changes will need to be adjusted. For his diabetes, Farxiga will be discontinued. His insulin therapy-Basaglar will be changed over to Levemir Pen 20 units subcu daily. Patient will continue with metformin 1000 mg 1 pill twice daily. Recommend to monitor his blood sugar at least twice daily. Recommend to maintain blood sugars less than 140 fasting and less than 200 after meals. Further adjustment in his insulin may be required for better diabetic control. Patient would benefit with endocrinology evaluation as an outpatient to further monitor and adjust. Hyponatremia and renal injury have resolved. Recommend to recheck lab- BMP in 1 week to follow up this hospitalization and monitor resolution. Patient may follow up with Nephrology in 2-4 weeks to monitors progress. Patient with hypertension. Blood pressure initially held due to low blood pressure. Blood pressure now stable on medication. At discharge he may continue with lisinopril 40 mg daily. Recommend to maintain blood pressures less 150/80. Further adjustment can be done by his PCP. Patient has history of hyperlipidemia. At discharge he may continue with Lipitor 40 mg daily. Vital Signs/Physical Exam: Temp Pulse Resp BP Pulse Ox 98.7 F 85 16 148/98 H 97 10/21/19 04:00 10/21/19 08:29 10/21/19 04:00 10/21/19 08:29 10/21/19 04:00 General: Alert, In no apparent distress, Oriented x3, Cooperative HEENT: Atraumatic Neck: Supple Respiratory: Clear to auscultation bilaterally, Normal air movement Cardiovascular: Normal pulses, Regular rate/rhythm Gastrointestinal: Normal bowel sounds, Soft and benign, Non-distended, No tenderness, No masses, No rebound, No guarding Musculoskeletal: No erythema, No tenderness, No warmth Integumentary: No tenderness/swelling, No erythema, No warmth, No cyanosis Neurological: Normal speech, Normal strength at 5/5 x4 extr, Normal tone, Normal affect Laboratory Data at Discharge: WBC 4.9 K/uL (4.3-10.9) D 10/21/19 04:06 Hgb 13.0 g/dL (13.6-17.9) L 10/21/19 04:06 Hct 38.8 % (39.6-49.0) L 10/21/19 04:06 Plt Count 158 K/uL (152-406) 10/21/19 04:06 PT 10.5 SECONDS (9.5-12.5) 10/19/19 14:30 INR 0.89 10/19/19 14:30 Sodium 133 mmol/L (136-145) L 10/21/19 04:06 Potassium 3.0 mmol/L (3.5-5.1) L 10/21/19 04:06 BUN 9 mg/dL (7-18) 10/21/19 04:06 Creatinine 0.91 mg/dL (0.55-1.3) 10/21/19 04:06 Glucose 167 mg/dL (74-106) H 10/21/19 04:06 Uric Acid 5.0 mg/dL (3.5-7.2) D 10/21/19 04:06 Phosphorus 1.8 mg/dL (2.5-4.9) L 10/21/19 04:06 Magnesium 2.3 mg/dL (1.8-2.4) D 10/21/19 04:06 Total Bilirubin 1.0 mg/dL (0.2-1.0) 10/19/19 13:45 AST 10 U/L (15-37) L 10/19/19 13:45 ALT 33 U/L (12-78) 10/19/19 13:45 Alkaline Phosphatase 64 U/L (45-117) 10/19/19 13:45 Triglycerides 184 mg/dL (<150) H 10/20/19 04:45 Cholesterol 122 mg/dL (<200) 10/20/19 04:45 HDL Cholesterol 46 mg/dL (40-60) 10/20/19 04:45 Cholesterol/HDL Ratio 2.65 10/20/19 04:45 Lipase 66 U/L (73-393) L 10/19/19 13:45 Home Medications: Atorvastatin Calcium [Lipitor] 40 mg PO BEDTIME 10/02/18 Metformin ER [Glucophage ER*] 1,000 mg PO BID 10/02/18 lisinopriL [Lisinopril] 40 mg PO DAILY 10/02/18 Insulin Detemir [Levemir Flextouch] 20 unit SQ DAILY #1 packet 10/21/19 Pantoprazole [Protonix Tab] 40 mg PO DAILY #30 tab 10/21/19 New Medications: Insulin Detemir [Levemir Flextouch] 20 unit SQ DAILY #1 packet Pantoprazole [Protonix Tab] 40 mg PO DAILY #30 tab Patient Discharge Instructions: 1. Recommend follow up with PCP within 1 week. 2. Patient presented with nausea, vomiting. Patient was evaluated the emergency room. Patient found to have DKA and severe hyponatremia. CT scan revealed esophagitis. Lab indicates acute renal injury likely from volume depletion related to nausea and vomiting. Patient was admitted to ICU. Patient continued with DKA protocol. His condition improved. DKA resolved. Patient was also given IV Protonix. During the course of his stay his condition improved. Blood sugar now better controlled. Hemoglobin A1c 10.4. Nephrology was consulted to help with his hyponatremia. Sodium level now close to normal range. Electrolytes have been replaced. Medications reviewed. At discharge patient is tolerating his diet. No significant nausea or vomiting noted. At discharge patient will continue with Protonix 40 mg daily for esophagitis/GERD. GERD/esophagitis education will be provided. Recommend follow up with GI for possible EGD in the future to further evaluate. Lifestyle changes will need to be adjusted. For his diabetes, Farxiga will be discontinued. His insulin therapy-Basaglar will be changed over to Levemir Pen 20 units subcu daily. Patient will continue with metformin 1000 mg 1 pill twice daily. Recommend to monitor his blood sugar at least twice daily. Recommend to maintain blood sugars less than 140 fasting and less than 200 after meals. Further adjustment in his insulin may be required for better diabetic control. Patient would benefit with endocrinology evaluation as an outpatient to further monitor and adjust. Hyponatremia and renal injury have resolved. Recommend to recheck lab-BMP in 1 week to follow up this hospitalization and monitor resolution. Patient may follow up with Nephrology in 2-4 weeks to monitors progress. 3. Patient with hypertension. Blood pressure initially held due to low blood pressure. Blood pressure now stable on medication. At discharge he may continue with lisinopril 40 mg daily. Recommend to maintain blood pressures less 150/80. Further adjustment can be done by his PCP. 4. Patient has history of hyperlipidemia. At discharge he may continue with Lipitor 40 mg daily. Diet: ADA Activity: Ad tracy Time spent managing pt's care (in minutes): 55
[2019-10-21] MEDS: POTASSIUM CL SA 10 MEQ TAB PO ONE ×2 (10:57→15:21)
[2019-10-21] MEDS ORDERED: NA CHLORIDE 0.9% 1,000 ML IV SCH (13:00)
[2019-10-21 17:37] VITALS: BP 133/64; TEMP 98.3
[2019-10-21] MEDS ORDERED: ATORVASTATIN 40 MG TAB PO SCH (21:00)
[2019-10-21] MEDS ORDERED: INSULIN GLARGINE 100 UNITS/ML SQ ONE (21:21)
[2019-10-22] MEDS ORDERED: lisinopriL 20 MG TAB PO SCH (09:00)
== END 2019-10-21 16:38 | disposition home or self-care (01) | DRG 638 ==
LOC: ER 13:16 → ERHOLD 17:06 → 2ND 10-20 19:39
PROVIDERS: ADMIT Family Medicine; ATTEND Family Medicine
DX: E11.10 Type 2 diabetes mellitus with ketoacidosis without coma (principal); E87.1 Hypo-osmolality and hyponatremia; N17.9 Acute kidney failure, unspecified; K20.9 Esophagitis, unspecified; E78.5 Hyperlipidemia, unspecified; Z79.899 Other long term (current) drug therapy; Z79.4 Long term (current) use of insulin; E86.1 Hypovolemia; R80.9 Proteinuria, unspecified; E87.6 Hypokalemia; E83.51 Hypocalcemia; I12.9 Hypertensive chronic kidney disease with stage 1 through stage 4 chronic kidney disease, or unspecified chronic kidney disease; N18.9 Chronic kidney disease, unspecified
CPT/HCPCS: 36415; 71045; 71250; 74176; 80048; 80061; 80076; 80307; 80320; 81001; 81003; 82010; 82043; 82570; 82805; 82947; 83036; 83690; 83735; 83880; 83930; 83935; 84100; 84132; 84145; 84300; 84484; 84550; 85025; 85610; 87040; 87070; 87081; 93005; 96361; 96365; 96366; 96367; 96368; 96375; 99285; C9113; J1650; J1815; J2270; J2405; J2765; J3411; J7030; J7042